=== PATIENT | male | born 1935 | race Caucasian/White ===

== ENCOUNTER 2019-11-07 12:35 | Outpatient (CLI) | payer MEDICARE, OTHER, SELFPAY ==
[2019-11-07] MEDS: iohexol 300 mg/mL 50 mL Btl PO (14:24)
[2019-11-07] MEDS: iodixanol 320 mg/mL 100mL Btl IV (14:25)
--- NOTE | 2019-11-07 14:30 | CT_ITS ---
WS: [id number] CT ABDOMEN PELVIS TECHNIQUE: Contrast-enhanced CT of the abdomen and pelvis with coronal and sagittal reformatted image s. CLINICAL INFORMATION: ABDOMINAL PAIN IN MALE COMPARISON: CT abdomen pelvis April 23, 2018 DLP: 1174.[address] scans at [facility] use at least one of these dose optimization techniques: automat ed exposure control; mA and/or kV adjustment per patient size (includes targeted exams where dose is matched to clinical indication); or iterative reconstruction. FINDINGS: Liver is normal in appearance. Normal portal vein and splenic vein. Normal gallbladder. Normal spleen . Normal GE junction. Slight atelectasis in the lung bases. Adrenal glands are normal. Bilateral renal cortical atrophy. Bilateral renal cysts. No obstructing re nal or ureteral calculi. Slightly ectatic left ureter although no obstructing calculus. No obstructiv e uropathy. Normal caliber abdominal aorta. Sigmoid diverticulosis. No evidence of small or large bowel obstructi on. No pelvic lymphadenopathy. No inguinal lymphadenopathy. Evidence of prior TURP. Moderate spondyli tic changes lumbar spine. CT/CT abdomen pelvis w con* [id number] IMPRESSION: 1. No acute abdominal or pelvic findings. 2. Bilateral renal cysts appear unchanged. 3. No obstructing renal or ureteral calculi. 4. Evidence of prior TURP. 5. No abdominal or pelvic lymphadenopathy.
== END 2019-11-07 12:36 | disposition home or self-care (01) ==
LOC: RADWPI 12:42
PROVIDERS: Family Provider Family Medicine; Visit Provider Internal Medicine
DX: N28.1 Cyst of kidney, acquired (principal); R10.9 Unspecified abdominal pain
CPT/HCPCS: 74177; Q9967

== ENCOUNTER 2019-12-22 10:26 | Emergency (ER) | payer OTHER, MEDICARE, SELFPAY ==
[2019-12-22 10:42] VITALS: BP 161/76; PULSE 61; RESP 20; TEMP 36.8; O2SAT 96; BMI 30.3
--- NOTE | 2019-12-22 10:51 | USCV_ITS ---
Ta Portillo Age: 84 Gender: M : 1935 Exam Date: 12/22/2019 11:39 Ordering Phys: Mecca Lopez Technologist: Joon Richards Exam Location: [facility] [place] Indication: LT LEG PAIN AND SWELLING HISTORY: Lower extremity edema. PROCEDURES: Venous duplex imaging was performed in only the left lower extremity. The following venous structures were evaluated: common femoral vein, profunda vein, proximal portion of the greater saphenous vein, superficial femoral vein, and the popliteal vein. In addition, the posterior tibial and peroneal trunk were evaluated. On the left side, the common femoral, superficial femoral, profunda femoral, popliteal, posterior tibial, greater saphenous veins, and the peroneal trunk were identified and interrogated in the standard fashion. These veins were found to be easily compressible with spontaneous blood flow. No evidence of insufficiency or thrombus noted. FINDINGS: Normal 2-D Doppler and augmentation and compressibility throughout the lower extremity venous structures. Additional imaging through the proximal calf veins also reveals no thrombus. Limited evaluation of the greater saphenous vein is patent with no thrombus.. CONCLUSIONS No evidence of left lower extremity DVT. Jeffery Gallo MD (Electronically Signed) Final Date: 23 December 2019 10:57 S
--- NOTE | 2019-12-22 10:51 | W.ED.EXTPRO ---
HPI - Extremity Problem General: Chief complaint: Extremity Injury, Lower Stated complaint: LEFT LEG SWELLING Time Seen by Provider: 12/22/19 10:45 Source: patient Mode of arrival: ambulatory Limitations: no limitations History of Present Illness: HPI Narrative: Patient is a very nice 84-year-old male who comes in today with complaints of left ankle swelling over the past 5 to 6 weeks. [facility] and was seen [facility] today and referred to the emergency department for further evaluation. Patient is not having any pain in the ankle. There is no redness or heat to the area. He has not noticed a difference in the swelling with being on his feet for long periods of time or with elevation. He has been using compression stockings without much change. He has no previous injuries, fractures, or hardware to the leg/ankle/foot. MD Complaint: joint swelling Onset (ago): month(s) Location: left and lower extremity Radiation: none Relieving factors: nothing Exacerbating factors: nothing Associated symptoms: Reports no associated symptoms; Deny chest pain or fever(s) Review of Systems Const: Denies: fever or chills Card: Denies: chest pain, palpitations, irregular heart rhythm, edema, lightheadedness, syncope, pre-syncope, shortness of breath on exertion, shortness of breath when lying down, leg pain with exertion or bluish discoloration of hands/feet Resp: Denies: shortness of breath, pain on inspiration, coughing up blood or chest congestion Musc: Reports: joint swelling; Denies: extremity pain, extremity swelling, joint pain, redness, joint warmth, joint stiffness, limited range of motion, muscle cramps or muscle weakness Neuro: Denies: numbness in extremities, weakness in extremities or changes in sensation [facility] ED PFSH: Social History Smoking and tobacco status: never smoked Alcohol intake: former History of recent travel: No Current gender identity: Male Physical Exam Const: COMMON NORMALS: no apparent distress, average body habitus, oriented x3, no limitations, healthy appearing, alert and well nourished Resp: COMMON NORMALS: normal respiratory effort and clear to auscultation bilaterally AUSCULTATION: clear to auscultation bilaterally Cardio: COMMON NORMALS: regular rate and regular rhythm RATE: regular rate RHYTHM: regular rhythm Extremity: OTHER: Nonpitting edema noted about the left ankle. Ankle is not erythematous or warm to the touch. Patient maintains painless full ROM. He has strong palpable DP and PT pulses. Capillary refill is brisk. He has no swelling or pain to his calf. Negative Janes's. Neuro: COMMON NORMALS: oriented x3 SENSORIUM/ORIENTATION: Yes alert Skin: COMMON NORMALS: no rashes or lesions noted, no wounds and no petechiae GENERAL SKIN EXAM: no rashes or lesions noted LESIONS: no lesions Course Vital Signs: Vital signs: Vital Signs Temperature 98.3 F 12/22/19 10:42 Pulse Rate 61 12/22/19 10:42 Respiratory Rate 20 H 12/22/19 10:42 Blood Pressure 161/76 12/22/19 10:42 Pulse Oximetry 96 12/22/19 10:42 MDM - Extremity (Nontraumatic) Lab Data: Labs: Lab Results 12/22/19 12/22/19 Range/Units 11:08 11:08 WBC 6.0 (4.0-10.0) 10^3/ uL RBC 4.61 (4.1-5.3) 10^6/u L Hgb 12.5 (11.7-16.6) g/dL Hct 39.0 L (42.0-52.0) % MCV 84.6 (80-94) fL MCH 27.1 L (28.0-34.0) pg MCHC 32.1 (30.0-36.0) g/dL RDW 14.6 (12.1-15.1) % Plt Count 177 (130-400) 10^3/c mm MPV 9.3 (7.4-10.4) fL Neut % (Auto) 59.0 % Lymph % (Auto) 27.4 % Duchesne % (Auto) 9.1 % Eos % (Auto) 3.7 % Baso % (Auto) 0.5 % Neut # (Auto) 3.5 (1.8-7.7) 10^3/u L Lymph # (Auto) 1.6 (0.8-4.8) 10^3/u L Duchesne # (Auto) 0.5 (0.2-0.9) 10^3/u L Eos # (Auto) 0.2 (0.0-0.8) 10^3/u L Baso # (Auto) 0.0 (0.0-0.1) 10^3/u L Nucleated RBC % (a uto) 0 % Nucleated RBCs # 0.0 /100WBC Sodium 141 (136-145) mmol/L Potassium 4.4 (3.5-5.1) mmol/L Chloride 105 (98-107) mmol/L Carbon Dioxide 27 (22-29) mmol/L Anion Gap 13.4 (5-19) BUN 16 (8-23) mg/dL Creatinine 1.3 H (0.7-1.2) mg/dL Glucose 99 (65-115) mg/dL Calculated Osmolal ity 288 (285-295) mOsm/k g Calcium 9.3 (8.5-10.5) mg/dL Total Bilirubin 0.3 (0.15-1.2) mg/dL AST 18 (0-40) U/L ALT 17 (0-41) U/L Alkaline Phosphata se 87 (40-130) IU/L Total Protein 6.9 (6.6-8.7) g/dL Albumin 4.1 (3.5-5.2) g/dL Globulin 2.8 (1.3-4.6) g/dL Imaging Data^: US venous L LE: My impression: NO DVT-per Joon Richards [facility] Discharge Plan Discharge Patient Disposition: Home, Self-Care Clinical Impression: Left ankle swelling Condition: Stable Prescriptions: No Action pantoprazole 40 mg tablet,delayed release (DR/EC) 40 mg PO DAILY Qty: 90 RF: 3 bismuth subsalicylate [Pepto-Bismol] 262 mg/15 mL suspension 524 mg PO QID PRNRF: 0 tramadol 50 mg tablet 50 mg PO Q6H PRNRF: 0 coenzyme Q10 [CoQ-10] 100 mg capsule 100 mg PO DAILY RF: 0 losartan 100 mg tablet 100 mg PO DAILY RF: 0 rosuvastatin 40 mg tablet 40 mg PO DAILY RF: 0 ergocalciferol (vitamin D2) 50 mcg (2,000 unit) capsule 50 mcg PO DAILY RF: 0 pramipexole [Mirapex] 0.125 mg tablet 0.125 mg PO DAILY RF: 0 Discharge Orders: Discharge Order (Routine); Ordered 12/22/19 Ordered By: Mecca Lopez Referrals: Rupesh Tompkins [Primary Care Provider] - Cole Tompkins MD [Family Provider] - Discharge Diet: Usual diet Discharge Activity: Resume usual activity Activity Restrictions/Additional Instructions: [facility] Coding Level of Care Code ED Conservation Educator for Matthew Lr
[2019-12-22 11:20] LABS: Basophils % 0.5 %; Eosinophils # 0.2 10^3/uL (0.0-0.8); Eosinophils % 3.7 %; Hemoglobin 12.5 g/dL (11.7-16.6); Lymphocytes # 1.6 10^3/uL (0.8-4.8); Lymphocytes % 27.4 %; Mean Corpuscular HGB Conc 32.1 g/dL (30.0-36.0); Mean Corpuscular Hemoglobin 27.1 pg (28.0-34.0); Mean Corpuscular Volume 84.6 fL (80-94); Mean Platelet Volume 9.3 fL (7.4-10.4); Monocytes # 0.5 10^3/uL (0.2-0.9); Monocytes % 9.1 %; Neutrophils # 3.5 10^3/uL (1.8-7.7); Nucleated Red Blood Cells % 0 %; Platelet Count 177 10^3/cmm (130-400); Red Blood Count 4.61 10^6/uL (4.1-5.3); Red Cell Distribution Width 14.6 % (12.1-15.1)
[2019-12-22 11:37] LABS: Alanine Aminotransferase 17 U/L (0-41); Albumin Level 4.1 g/dL (3.5-5.2); Alkaline Phosphatase 87 IU/L (40-130); Anion Gap 13.4 (5-19); Aspartate Amino Transferase 18 U/L (0-40); Blood Urea Nitrogen 16 mg/dL (8-23); Calcium 9.3 mg/dL (8.5-10.5); Carbon Dioxide 27 mmol/L (22-29); Chloride 105 mmol/L (98-107); Globulin 2.8 g/dL (1.3-4.6); Glucose 99 mg/dL (65-115); Osmolality Calculated 288 mOsm/kg (285-295); Potassium 4.4 mmol/L (3.5-5.1); Sodium 141 mmol/L (136-145); Total Bilirubin 0.3 mg/dL (0.15-1.2); Total Protein 6.9 g/dL (6.6-8.7)
[2019-12-22 12:46] VITALS: BP 142/72; PULSE 55; RESP 16; TEMP 36.8; O2SAT 95
== END 2019-12-22 12:47 | disposition home or self-care (01) ==
PROVIDERS: Emergency Provider Physician Assistant; Family Provider Family Medicine
DX: M79.89 Other specified soft tissue disorders (principal)
CPT/HCPCS: 12345; 36415; 80053; 85025; 93971; 99281; 99283

== ENCOUNTER 2019-12-28 09:23 | Outpatient (CLI) | payer MEDICARE, OTHER, SELFPAY ==
--- NOTE | 2019-12-28 09:29 | XR_ITS ---
WS: [id number] LUMBAR SPINE TECHNIQUE: 7 views of the lumbar spine CLINICAL INFORMATION: LOW BACK PAIN COMPARISON: None. FINDINGS: Mild lumbar curve convex left. Five [id number] lumbar vertebral bodies. Disc space narrowing throughout the lumbar spine. Mild anterior hypertrophic changes lower thoracic and lumbar spine. Slight retrolisthesis L2 on L3 and L3 on L4. No instability on flexion-extension. S1 is partially lumbarized. XR/XR lumbar spine 6V w f/e [id number] IMPRESSION: 1. No instability on flexion-extension. 2. Mild lumbar curve convex left.
== END 2019-12-28 09:24 | disposition home or self-care (01) ==
LOC: RADWPI 09:27
PROVIDERS: Family Provider Family Medicine; Visit Provider Nurse Practitioner Family
DX: M54.5 Low back pain (principal)
CPT/HCPCS: 72114

== ENCOUNTER 2020-01-09 10:09 | Day surgery (SDC) | payer MEDICARE, OTHER, SELFPAY ==
[2020-01-06 10:41] VITALS: BMI 29.7
--- NOTE | 2020-01-09 08:32 | P.HP_ITS ---
Same Day Surgery H&P Indication for Procedure/HPI DATE OF PROCEDURE: January 09, 2020 CHIEF COMPLAINT/INDICATIONFOR SURGICAL PROCEDURE: Persistent epigastric pain PREOP DIAGNOSIS: Persistent epigastric pain PLANNED PROCEDRUE: Operation Date: 01/09/20 11:15 Proposed Procedures p EGD 23510 R10.9(Not Applicable) - Randy Carson MD Medications/Allergies* Home Medications Medication Instructions Recorded Confirmed Type ergocalciferol (vitamin D2) 50 mcg 50 mcg PO DAILY 10/24/19 01/06/20 History (2,000 unit) capsule losartan 100 mg tablet 100 mg PO DAILY 10/24/19 01/06/20 History pramipexole 0.125 mg tablet 0.125 mg PO DAILY 10/24/19 01/06/20 History rosuvastatin 40 mg tablet 40 mg PO DAILY 10/24/19 01/06/20 History tramadol 50 mg tablet 50 mg PO Q6H PRN 10/24/19 01/06/20 History Allergies/Adverse Reactions Allergy/AdvReac Type Severity Reaction Status Date / Time hydroxyzine Allergy Mild dry mouth Verified 12/22/19 10:45 ofloxacin [From Floxin] Allergy Mild dry mouth Verified 12/22/19 10:45 metformin Allergy Unknown Verified 12/22/19 10:45 Pertinent History/Comorbid Conditions* Family History (Updated 10/24/19 @ 10:35 by ABRAHAM Subramanian) Myocardial infarction Father Cancer Mother Social History Smoking and tobacco status: never smoked Alcohol intake: former History of recent travel: No Current gender identity: Male Pertinent Exam Findings alert, oriented x 3, clear to auscultation bilaterally, regular rate & rhythm, operative site marked and procedure specific exam findings Recommendations Surgery/Procedure today Coding Level of Care Code Acute Multimedia Assistant for Matthew Lr
[2020-01-09 10:28] VITALS: BP 158/77; PULSE 75; RESP 16; TEMP 35.8; O2SAT 97
--- NOTE | 2020-01-09 10:31 | P.ANESASSM_ITS ---
Pre-Anesthetic Assessment Pre-Anesthetic Assessment: Height/Weight: Height 1.68 m Weight 83.461 kg Preop Diagnosis: abdominal pain Proposed Procedure: Operation Date: 01/09/20 11:15 Proposed Procedures p EGD 71920 R10.9(Not Applicable) - Randy Carson MD Familial anesthetic complications: None Was Beta Anna taken within 24 h ours: N/A Last intake: NPO > 8 hrs, took protonix this morning Social: Social History: No alcohol and No tobacco Exam: Pre-Anes Outpt Exam: alert, oriented x 3, clear to auscultation bilaterally and regular rate & rhythm Airway: Cervical ROM: WNL MP: 3 Additional comments: implants, gold plated Pulmonary: Pulmonary: None reported CV/HEM: CV/HEM: HTN : : None reported Hepatic: Hepatic: None reported GI: GI: GERD Metabolic: Metabolic: None reported Musc/skel: Musc/skel: None reported Neuropsych: Neuropsych: None reported Anesthetic Plan: ASA status: 2 Anesthesia: MAC Risk of > 500 ml blood loss (7ml/kg in children): No PFSH Anesthesia PFSH: Social History Smoking and tobacco status: never smoked Alcohol intake: former History of recent travel: No Current gender identity: Male Data Anesthesia Cardiac Studies: No Data to Display
[2020-01-09] MEDS: sodium chloride 0.9% 1,000 ML 30 ML IV (10:36)
[2020-01-09 12:14] VITALS: BP 133/78; PULSE 74; RESP 16; TEMP 36.2; O2SAT 97
[2020-01-09 12:29] VITALS: BP 141/79; PULSE 57; RESP 16; TEMP 36.6; O2SAT 97
[2020-01-10 14:20] LABS: H. Pylori / CLO Test Negative
== END 2020-01-09 12:50 | disposition home or self-care (01) ==
PROVIDERS: Family Provider Family Medicine; Visit Provider Internal Medicine
PROC: 0DJ08ZZ Inspection of Upper Intestinal Tract, Via Natural or Artificial Opening Endoscopic (ICD-10-PCS; CPT 43235; principal; 2020-01-09 11:10)
DX: R10.13 Epigastric pain (principal); K29.70 Gastritis, unspecified, without bleeding; I10 Essential (primary) hypertension; K21.9 Gastro-esophageal reflux disease without esophagitis
CPT/HCPCS: 43239; 12345; 87077; J2001; J2704; J7030

== ENCOUNTER 2020-01-19 08:04 | Outpatient (CLI) | payer MEDICARE, OTHER, SELFPAY ==
--- NOTE | 2020-01-19 08:45 | CT_ITS ---
WS: [id number] CT LUMBAR SPINE, noncontrast. HISTORY: Low back pain TECHNIQUE: Contiguous 2.5 mm axial imaging are performed. Sagittal and coronal reformats are submitte d and reviewed. All CT scans at [facility] use at least one of these dose optimization te chniques: automated exposure control; mA and/or kV adjustment per patient size (includes targeted exa ms where dose is matched to clinical indication); or iterative reconstruction. IV contrast: None DLP: 2000.4 mGycm COMPARISON: 02/01/2019 2 mm retrolisthesis of L2 and L3. Very mild LEFT curvature lumbar spine. Mild progression of degenera tive disc disease and vacuum disc phenomenon at L4-5 and L5-S1. Endplate osteophytes extend anterior and posterior from the vertebral bodies. No acute fractures are identified. Irregularity along the en dplates most significant at L4 and L5. L1-2: Mild annular disc bulging without stenosis. L2-3: Diffuse osteophytic ridging and retrolisthesis of L2 resulting in mild central stenosis. Modera te RIGHT foraminal stenosis. L3-4: Diffuse annular disc bulging and mild osteophytic ridging. Ligamentum flavum hypertrophy with o nly mild RIGHT foraminal narrowing. Slight encroachment upon the ventral thecal sac by the disc disea se. L4-5: Diffuse asymmetric disc bulging and osteophytic ridging. Encroachment upon the ventral thecal s ac and RIGHT subarticular recess. Mild central and RIGHT subarticular recess stenosis and RIGHT shaun inal stenosis. L5-S1: Diffuse osteophytic ridging is moderate with disc bulging. Osteophytes encroach into the RIGHT foramen and subarticular recess. Moderate RIGHT foraminal stenosis. Smaller osteophytes in the LEFT foramen. Mild atherosclerosis aorta. S1 is partially lumbarized. CT/CT lumbar spine wo con* [id number] IMPRESSION: 1. Mild progression of spondylitic changes throughout the lumbar spine since . 2. LEFT convex curvature lumbar spine. 3. Moderate RIGHT foraminal stenosis at L2-3. 4. Mild central, RIGHT subarticular recess and foraminal stenosis at L4-5. 5. Moderate RIGHT foraminal stenosis at L5-S1. 6. Mild central stenosis at L2-3 through L4-5.
== END 2020-01-19 08:05 | disposition home or self-care (01) ==
LOC: RADWPI 08:08
PROVIDERS: Family Provider Family Medicine; Visit Provider Licensed Practical Nurse
DX: M54.5 Low back pain (principal); M48.061 Spinal stenosis, lumbar region without neurogenic claudication
CPT/HCPCS: 72131

== ENCOUNTER 2020-02-20 07:59 | Outpatient (CLI) | payer MEDICARE, OTHER, SELFPAY ==
--- NOTE | 2020-02-20 09:00 | IR_ITS ---
WS: [id number] MYELOGRAM LUMBAR SPINE Fluoroscopic guided lumbar myelogram CLINICAL INFORMATION: lumbar pain COMPARISON: None. TECHNIQUE: The procedure, including risks, benefits, and complications, were discussed with the patie nt who agreed to proceed. A timeout was performed to confirm correct patient, procedure, and site. Using sterile technique, the patient was prepped and draped in the usual sterile fashion. After admin istration of local anesthesia using 1% preservative-free lidocaine and using fluoroscopic guidance, a 22-gauge spinal needle was advanced into the subarachnoid space at the L3-L4 level. Subsequently 13 cc of Omnipaque 240 was administered into the thecal sac. The needle was removed and hemostasis was a chieved. Spot fluoroscopic images were obtained. FLUOROSCOPIC TIME: 0.3 minutes. Spot fluoroscopic images demonstrate mild lumbar curve convex left. 5 nonrib-bearing lumbar vertebral bodies. Slight retrolisthesis L2 on L3, L3 on L4, and L4 on L5. Mild disc space narrowing throughout the lumbar spine. No significant instability on flexion-extension. Moderate facet arthropathy L4-L5 and L5-S1. Please see CT myelogram report for additional detail. IR/IR myelogram sp lumbar [id number] IMPRESSION: 1. Uncomplicated lumbar myelogram. 2. Slight retrolisthesis L2, L3, and L4. 3. No significant instability on flexion extension. 4. Moderate facet arthropathy L4-L5 and L5-S1.
[2020-02-20] MEDS: iohexol 240 mg/mL 50 mL Btl INTRATHECA (09:47)
--- NOTE | 2020-02-20 11:30 | CT_ITS ---
WS: [id number] CT LUMBAR SPINE TECHNIQUE: Contrast-enhanced CT of the lumbar spine with coronal and sagittal reformatted images. CLINICAL INFORMATION: lumbar pain COMPARISON: CT January 19, 2020 DLP: 1682.[address] [facility] use at least one of these dose optimization techniques: automat ed exposure control; mA and/or kV adjustment per patient size (includes targeted exams where dose is matched to clinical indication); or iterative reconstruction. FINDINGS: Mild lumbar curve. No acute compression. Slight retrolisthesis L2 on L3 and L3 on L4. Lumbar curve co nvex left. L1-L2: Mild annular bulging. Spinal canal and foramen are patent. L2-L3: Slight retrolisthesis L2 on L3. Impingement on the right subarticular recess and traversing ri ght L3 nerve root. Mild right and no significant left foraminal narrowing. Encroachment on the racahel sing right L3 nerve root. L3-L4: Disc osteophytic ridging. Slight narrowing of the articular recess bilaterally right greater t ann left. Mild right and no significant left foraminal narrowing. Moderate facet arthropathy with lig amentum flavum hypertrophy. L4-L5: Mild disc bulging and osteophytic ridging. Moderate facet arthropathy. Prior left hemilaminect roxann. Mild central canal stenosis. Mild right and no significant left foraminal narrowing. L5-S1: Mild disc bulging with osteophytic ridging. Mild right and no significant left foraminal narro wing. Slight effacement of ventral thecal sac. Mild facet arthropathy. Visualized pelvic bony structures: Normal. Paravertebral soft tissues: Normal. CT/CT lumbar spine w con [id number] IMPRESSION: 1. Mild lumbar curve convex left. No acute compression fractures. 2. Mild disc bulging with impingement on the right subarticular recess L2-L3 a nd L3-L4 with osteophytic ridging. 3. Mild to moderate central canal stenosis L4-L5. 4. Mild right L2-3 and L3-4 foraminal narrowing. Mild right L4-5 foraminal theodore rowing. 5. Moderate facet arthropathy L3-L5. Prior left hemilaminectomy left L4-5.
== END 2020-02-20 08:00 | disposition home or self-care (01) ==
LOC: RADWPI 08:04
PROVIDERS: Family Provider Family Medicine; Visit Provider Specialist
DX: M54.5 Low back pain (principal); M25.78 Osteophyte, vertebrae; M48.061 Spinal stenosis, lumbar region without neurogenic claudication; M47.816 Spondylosis without myelopathy or radiculopathy, lumbar region
CPT/HCPCS: 62304; 72120; 72132; Q9966

== ENCOUNTER → 2020-05-23 14:07 | Outpatient (BNVA) | payer MEDICARE, OTHER, SELFPAY | PROVIDERS: Family Provider Family Medicine; Visit Provider Licensed Practical Nurse | DX: M51.9 Unspecified thoracic, thoracolumbar and lumbosacral intervertebral disc disorder (principal); M47.26 Other spondylosis with radiculopathy, lumbar region; M43.16 Spondylolisthesis, lumbar region | CPT/HCPCS: 99213 ==

== ENCOUNTER → 2020-09-28 08:23 | Outpatient (BNVA) | payer MEDICARE, OTHER, SELFPAY | PROVIDERS: Family Provider Family Medicine; Referring Provider Dermatology; Visit Provider Orthopaedic Surgery | DX: M16.0 Bilateral primary osteoarthritis of hip (principal); M54.5 Low back pain | CPT/HCPCS: 72170 ==

== ENCOUNTER → 2020-10-09 08:27 | Outpatient (BNVA) | payer MEDICARE, BC, SELFPAY | PROVIDERS: Family Provider Family Medicine; PCP Family Medicine; Referring Provider Orthopaedic Surgery; Visit Provider Anesthesiology Pain Medicine | DX: G89.29 Other chronic pain (principal); M54.9 Dorsalgia, unspecified; M43.16 Spondylolisthesis, lumbar region; M51.9 Unspecified thoracic, thoracolumbar and lumbosacral intervertebral disc disorder; M51.17 Intervertebral disc disorders with radiculopathy, lumbosacral region; M47.816 Spondylosis without myelopathy or radiculopathy, lumbar region; Z79.891 Long term (current) use of opiate analgesic | CPT/HCPCS: 99205 ==

== ENCOUNTER → 2020-10-23 13:39 | Outpatient (BNVA) | payer MEDICARE, BC, SELFPAY | PROVIDERS: Family Provider Family Medicine; PCP Family Medicine; Visit Provider Anesthesiology Pain Medicine | DX: M51.17 Intervertebral disc disorders with radiculopathy, lumbosacral region (principal); M54.9 Dorsalgia, unspecified; Z79.891 Long term (current) use of opiate analgesic | CPT/HCPCS: 64483; 64484; J1100; J3490 ==

== ENCOUNTER → 2020-11-21 08:37 | Outpatient (BNVA) | payer MEDICARE, BC, SELFPAY | PROVIDERS: Family Provider Family Medicine; PCP Family Medicine; Visit Provider Anesthesiology Pain Medicine | DX: M54.9 Dorsalgia, unspecified (principal); M43.16 Spondylolisthesis, lumbar region; M51.9 Unspecified thoracic, thoracolumbar and lumbosacral intervertebral disc disorder; M51.17 Intervertebral disc disorders with radiculopathy, lumbosacral region; M47.816 Spondylosis without myelopathy or radiculopathy, lumbar region; M25.551 Pain in right hip; Z79.891 Long term (current) use of opiate analgesic | CPT/HCPCS: 99214 ==

== ENCOUNTER → 2020-12-13 12:43 | Outpatient (BNVA) | payer MEDICARE, BC, SELFPAY | PROVIDERS: Family Provider Family Medicine; PCP Family Medicine; Visit Provider Orthopaedic Surgery | DX: M47.816 Spondylosis without myelopathy or radiculopathy, lumbar region (principal); M43.16 Spondylolisthesis, lumbar region; M51.17 Intervertebral disc disorders with radiculopathy, lumbosacral region; M51.9 Unspecified thoracic, thoracolumbar and lumbosacral intervertebral disc disorder | CPT/HCPCS: 87635 ==

== ENCOUNTER → 2020-12-28 08:43 | Outpatient (BNVA) | payer MEDICARE, BC, SELFPAY | PROVIDERS: Family Provider Family Medicine; PCP Family Medicine; Visit Provider Orthopaedic Surgery | DX: Z01.812 Encounter for preprocedural laboratory examination (principal); Z20.822 Contact with and (suspected) exposure to COVID-19 | CPT/HCPCS: 87635 ==

== ENCOUNTER 2021-01-02 08:43 | Day surgery (SDC) | payer MEDICARE, BC, SELFPAY ==
[2021-01-01 15:24] VITALS: BMI 29.0
[2021-01-02] VITALS (9 sets, daily range): BP systolic 119–155; BP diastolic 58–85; PULSE 69–87; RESP 12–20; TEMP 36.1–36.6; O2SAT 84–100
--- NOTE | 2021-01-02 | SCC_ITS ---
Procedure Done: L3/4 laminectomy with partial fecetectomy L4/5 Laminectomy with partial facetectomy 26.3 seconds of fluoroscopic guidance, for a cumulative dose of 0.4 mGy, was provided to Dr. Amaya by the radiology department. C-arm images of the lumbar spine were saved for the patient's permanent record. [facility]
--- NOTE | 2021-01-02 | XR_ITS ---
WS: [id number] Lumbar spine, C-arm fluoroscopy views, 01/02/2021 Clinical Data: lumbar decompression Comparison: Lumbar spine, 12/28/2019. Findings: Dr. Amaya decompressed the L4-L5 disc level. XR/XR lumbar spine 2-3V* [id number] Impression: Decompression of the L4-L5 disc level.
--- NOTE | 2021-01-02 09:38 | ECG_ITS ---
[facility] Test Date: 2021-01-02 Pat Name: Ta Portillo Department: Room: Gender: Male [employer] Leader: : 1935 Requested By: Niels Carvajal Order Number: [id number] Connor MD: Lucho Jimenez M.D. Measurements Intervals [place] Rate: 68 P: 42 PA: 217 QRS: -20 QRSD: 87 T: 49 QT: 415 QTc: 444 Interpretive Statements SINUS RHYTHM WITH FIRST DEGREE AV BLOCK WITH OCCASIONAL VENTRICULAR PREMATURE COMPLEXES No previous ECG available for comparison Electronically Signed On 01-03-2021 9:40:01 CDT by Lucho Jimenez M.D. [id number]
[2021-01-02] MEDS: sodium chloride 0.9% 1,000 ML 30 ML IV (10:48)
--- NOTE | 2021-01-02 10:50 | P.ANESASSM_ITS ---
Pre-Anesthetic Assessment Pre-Anesthetic Assessment: Height/Weight: Height 1.68 m Weight 81.647 kg Temp Pulse Resp BP Pulse Ox 97.0 F L 69 16 148/84 84 L 01/02/21 10:21 01/02/21 10:21 01/02/21 10:21 01/02/21 10:21 01/02/21 10:21 Preop Diagnosis: lumbar stenosis Proposed Procedure: Operation Date: 01/02/21 11:40 Proposed Procedures p Lumbar Spine Decompression L3/4 4/5 40973 09448 M48.062(Not Applicable) - Niels Amaya, DO Was Beta Anna taken within 24 hours: N/A Was Clonidine taken within 24 hours: N/A Last intake: Intake Last Liquid Date 01/01/21 Last Liquid Time 00:00 Last Solid Date 01/01/21 Last Solid Time 21:00 Social: Social History: No alcohol and No tobacco Exam: Pre-Anes Outpt Exam: alert, oriented x 3, clear to auscultation bilaterally and regular rate & rhythm Airway: Submandibular: WNL Cervical ROM: WNL MP: 2 Dentition: False (upper) GI: GI: GERD Musc/skel: Musc/skel: Lower Back Pain Anesthetic Plan: ASA status: 3 Anesthesia: General Risk of > 500 ml blood loss (7ml/kg in children): No Meds/Allergies Current Medications: Current Medications Generic Name Dose Route Start Last Admin Trade Name Freq PRN Reason Stop Dose Admin Sodium Chloride 1,000 mls @ 30 ml s/hr 01/02/21 09:45 01/02/21 10:48 Sodium Chloride 0.9% IV 01/03/21 09:44 30 mls/hr .Q24H JENNIFER Administration PFSH Anesthesia PFSH: Medical History Intervertebral disc disorder with radiculopathy of lumbosacral region Lumbar disc disease Lumbar stenosis with neurogenic claudication Other spondylosis with radiculopathy, lumbar region Spondylolisthesis of lumbosacral region Spondylolisthesis, lumbar region Surgical History H/O transurethral resection of prostate Family History Mother Cancer Father Myocardial infarction Social History Smoking and tobacco status: never smoked Alcohol intake: never Household members: spouse Marital status: Current occupational status: employed 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
[2021-01-02 10:53] LABS: Basophils % 0.5 %; Eosinophils # 0.2 10^3/uL (0.0-0.8); Eosinophils % 3.9 %; Hematocrit 43.6 % (42.0-52.0); Lymphocytes # 1.5 10^3/uL (0.8-4.8); Lymphocytes % 24.6 %; Mean Corpuscular HGB Conc 32.1 g/dL (30.0-36.0); Mean Corpuscular Hemoglobin 27.6 pg (28.0-34.0); Mean Platelet Volume 9.6 fL (7.4-10.4); Monocytes # 0.5 10^3/uL (0.2-0.9); Neutrophils % 62.7 %; Nucleated Red Blood Cells % 0 %; Platelet Count 177 10^3/cmm (130-400); Red Blood Count 5.07 10^6/uL (4.1-5.3); Red Cell Distribution Width 14.9 % (12.1-15.1); White Blood Count 5.9 10^3/uL (4.0-10.0)
[2021-01-02 11:12] LABS: Anion Gap 11.1 (5-19); Blood Urea Nitrogen 18 mg/dL (8-23); Calcium 8.8 mg/dL (8.5-10.5); Carbon Dioxide 28 mmol/L (22-29); Chloride 106 mmol/L (98-107); Glucose 129 mg/dL (65-115); Osmolality Calculated 294 mOsm/kg (285-295); Potassium 5.1 mmol/L (3.5-5.1); Sodium 140 mmol/L (136-145)
--- NOTE | 2021-01-02 12:02 | W.PM.OPSUD ---
Surgery/Procedure H&P Update DATE OF PROCEDURE: January 02, 2021 DATE H&P PERFORMED: 01/02/21 PREOP DIAGNOSIS: lumbar stenosis PLANNED PROCEDURE: Operation Date: 01/02/21 11:40 Proposed Procedures p Lumbar Spine Decompression L3/4 12/03 87330 28521 M48.062(Not Applicable) - Niels Amaya DO
--- NOTE | 2021-01-02 12:04 | P.HP_ITS ---
Providers/Chief Complaint Primary Care Provider: Cole Tompkins MD Chief Complaint: lumbar decompression History of Present Illness Ta Portillo is a 85 year old male patient here for follow up after steroid injection at the L3-[address] Bhatti and recent Prednisone taper. Patient reports that neither of these conservative treatments provided him relief. He states that he would like to discuss surgical intervention. Review of Systems Narrative: Const: Denies: fever(s) or chills Card: Denies: chest pain or dyspnea on exertion Resp: Denies: dyspnea or productive cough GI: Denies: abdominal pain, nausea or vomiting Musc: Reports: back pain, extremity pain and limited range of motion Skin/Breast: Denies: changes in skin color or dry skin Neuro: Reports: numbness in extremities, weakness in extremities and diffi culty walking Psych: Denies: anxiety Kike/Lymph: Denies: easy bruising or easy bleeding Medications/Allergies Home Medications Medication Instructions Recorded Confirmed Last Taken Type ergocalciferol (vitamin D2) 50 mcg 50 mcg PO DAILY 10/24/19 01/02/21 01/01/21 History (2,000 unit) capsule losartan 100 mg tablet 100 mg PO DAILY 10/24/19 01/02/21 01/01/21 History pramipexole 0.125 mg tablet 0.125 mg PO DAILY 10/24/19 01/02/21 01/01/21 History rosuvastatin 40 mg tablet 40 mg PO DAILY 10/24/19 01/02/21 01/01/21 History tramadol 50 mg tablet 50 mg PO Q6H PRN 10/24/19 01/02/21 01/01/21 History dexlansoprazole [Dexilant] 60 mg PO DAILY #90 cap 01/09/20 01/02/21 01/02/21 Rx Allergies Allergy/AdvReac Type Severity Reaction Status Date / Time hydroxyzine Allergy Mild dry mouth Verified 11/30/20 08:14 ofloxacin [From Floxin] Allergy Mild dry mouth Verified 11/30/20 08:14 metformin Allergy blacked out Verified 11/30/20 08:14 PFSH Acute PFSH: Medical History Intervertebral disc disorder with radiculopathy of lumbosacral region Lumbar disc disease Lumbar stenosis with neurogenic claudication Other spondylosis with radiculopathy, lumbar region Spondylolisthesis of lumbosacral region Spondylolisthesis, lumbar region Surgical History H/O transurethral resection of prostate Family History Mother Cancer Father Myocardial infarction Social History Smoking and tobacco status: never smoked Alcohol intake: never Household members: spouse Marital status: Current occupational status: employed 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 GENERAL: Patient in no acute distress. Well nourished. CARDIAC: Regular rate and rhythm. CHEST: Normal inspirator effort, normal respiratory rate. ABDOMEN: Soft and non-tender. SKIN: Clear, warm and intact. NEURO?PSYCH: The patient is alert and oriented to person, place and time. NEUROVASCULAR: Upper Extremity Sensory - SILT. Motor Strength: Shoulder abduction C5: 5/5; Wrist extension C6: 5/5; Elbow extension C7: 5/5; Hand Acoustic Warfare Analyst C8: 5/5; Finger abduction T1: 5/5. Radial/ Ulnar/ Median in intact Lower Extremity Sensory - SILT. Motor Strength: Hip flexion L2/3; Ant/inner thigh: 5/5; Hip adduction L2/3: 5/5; Knee extension L4 Lat thigh: 5/5; Toe dorsiflexion L5: 5/5; Ankle dorsiflexion L5/ S1: 5/5; Plantar flexion S1: 5/5. DTR: Triceps 2+; Brachioradialis 2+; Patellar 2+; Achilles 2+. MUSCULOSKELETAL: UPPER EXTREMITIES: The patient had full active ROM in fingers, wrist, elbow, and shoulder. The patient demonstrated ability to fully flex/extend/abduct/adduct fingers, make ok sign, cross 2nd/3rd digits, extend 1st digit fully.. Radial pulse 2+, CR<2 seconds. LOWER EXTREMITIES: Pt has full, active ROM of toes, ankle, knee, and hip. Dorsalis pedis & posterior tibialis pulses 2+, CR<2 seconds. SPINE: Skin warm, dry, intact. Data : 01/02/21 10:44 01/02/21 10:44 A&P Assessment and plan (1) Lumbar stenosis with neurogenic claudication: MIS decompression lumbar spine Status: Chronic Attestations Medical Necessity Statement*: failed conservative treatment Coding Level of Care Code Acute School Age Program Associate for [facility] Fwd Diagnoses Lumbar stenosis with neurogenic claudication M48.062
--- NOTE | 2021-01-02 15:03 | P.PCN_ITS ---
PACU note PACU note: VSS, Good respiratory effort, report to PLANING MACHINE OPERATOR Post-Anesthesia Exam: awake
--- NOTE | 2021-01-02 15:03 | PM.PACU ---
PACU note PACU note: VSS, Good respiratory effort, report to OPTOMETRIC COORDINATOR Post-Anesthesia Exam: awake
--- NOTE | 2021-01-02 15:14 | P.OP_ITS ---
Operative Report Date of procedure: January 02, 2021 Pre-op Diagnosis: lumbar stenosis Post-op diagnosis: same Procedure Done: L3/4 laminectomy with partial fecetectomy L4/5 Laminectomy with partial facetectomy Surgeon: Niels Amaya Anesthesia: General Estimated blood loss (mL): 10 Condition: stable Disposition: PACU Procedure: Patient is brought to the operative suite. After undergoing anesthesia they are placed in the supine position. All areas of impingement are well padded. Patient is then prepped and draped in the normal sterile fashion. A skin incision is made over the L3/4 level. This is confirmed under c-arm guidance. A series of dilators are passed and the tubular retractor is docked on the L3 lamina. A bovie is used to clear the soft tissue off the lamina and the L 3/4 facet joint. A high speed maine is then used to perform the laminectomy and take down the medial aspect of the L 3/4 facet joint. A kerrison rongeure was then used to take down the remaining lamina and smooth the edged of the laminectomy up to the point where the ligamentum flavum attaches. Attention was then brought to the medial aspect of the facet joint. The remaining medial aspect of the superior and inferior aspect of the facet joint were taken down with the kerrison from the pedicle of L3 to L 4. The facet joint had significant hypertrophy. Attention was then brought to the Ligamentum Flavum. The ligament was taken down from the lamina of L3 toL4 and out medially to the remaining facet joint. The ligament was thick. The dura was then exposed. The dura was in good repair. The L3 nerve was then traced with a curette out the L3/4 foramen and found to be adequately decompressed. The L4 nerve was traced with a curette around the L4 pedicle. The lateral recess was opened with a kerrison helping to further decompress the L4 nerve. The tubular retractor was then tilted to the contralateral side. The bovie was used to take down the soft tissue on the spinous process. The high speed maine was used to take down the spinous process and then the contralateral lamina of L3. The kerrison rongeur was used to take down the remaining lamina to the point where the ligamentum flavum attached and the ligamentum flavum was taken down from L3 to L4. The kerrison rongeur was then used to reach across and take down the medial aspect of the contralateral L3/4 facet joint.The currete was used to trace the contralateral L3 nerve out the L3/4 foramen to make sure it was decompressed adequatesly and the L4 was traced around the L4 pedicle. The lateral recess was opened further with the kerrison to ensure the L4 is adequately decompressed. A skin incision is made over the 4/5 level. This is confirmed under c-arm guidance. A series of dilators are passed and the tubular retractor is docked on the L4 lamina. A bovie is used to clear the soft tissue off the lamina and the L 4/5 facet joint. A high speed maine is then used to perform the laminectomy and take down the medial aspect of the L 4/5 facet joint. A kerrison rongeure was then used to take down the remaining lamina and smooth the edged of the laminectomy up to the point where the ligamentum flavum attaches. Attention was then brought to the medial aspect of the facet joint. The remaining medial aspect of the superior and inferior aspect of the facet joint were taken down with the kerrison from the pedicle of L4 to L 5. The facet joint had significant hypertrophy. Attention was then brought to the Ligamentum Flavum. The ligament was taken down from the lamina of L4 to L5 and out medially to the remaining facet joint. The ligament was thick. The dura was then exposed. The dura was in good repair. The L4 nerve was then traced with a curette out the L4/5 foramen and found to be adequately decompressed. The L5 nerve was traced with a curette around the L5 pedicle. The lateral recess was opened with a kerrison helping to further decompress the L5 nerve. The tubular retractor was then tilted to the contralateral side. The bovie was used to take down the soft tissue on the spinous process. The high speed maine was used to take down the spinous process and then the contralateral lamina of L4. The kerrison rongeur was used to take down the remaining lamina to the poi nt where the ligamentum flavum attached and the ligamentum flavum was taken down from L4 to L5. The kerrison rongeur was then used to reach across and take down the medial aspect of the contralateral L4/5 facet joint.The currete was used to trace the contralateral L4 nerve out the L4/5 foramen to make sure it was decompressed adequatesly and the L5 was traced around the L5 pedicle. The lateral recess was opened further with the kerrison to ensure the L5 is adequately decompressed. Wound is then irrigated copiously with saline and surgiflo is used to stop any bleeding. The tubular retractor is removed and the wound is closed with vicryl and monocryl suture. Glue is then used to protect the wound. A sterile dressing is then placed. Patient was then placed in the supine position and transferred to the PACU in stable condition.
--- NOTE | 2021-01-02 16:36 | ANE.PACU2 ---
Inpatient post-anesthesia follow up: Airway intact: Yes Vital signs: Temperature 98 F Pulse Rate 73 Respiratory Rate 16 Blood Pressure 126/58 Pulse Oximetry 93 Oxygen Delivery Me thod Room Air Oxygen Flow Rate 3 Fraction of Inspir ed Oxygen Hydration adequate: Yes Nausea and vomiting: No Pain level: 1 Mental status: Baseline
== END 2021-01-02 16:20 | disposition home or self-care (01) ==
PROVIDERS: PCP Family Medicine; Visit Provider Orthopaedic Surgery
PROC: (CPT 63005; principal; 2021-01-02 11:10)
DX: M48.061 Spinal stenosis, lumbar region without neurogenic claudication (principal); K21.9 Gastro-esophageal reflux disease without esophagitis
CPT/HCPCS: 63047; 63048; 36415; 72100; 76000; 80048; 85025; 93005; J0690; J1100; J2370; J2405; J2704; J2710; J3010; J3490; J7030

== ENCOUNTER → 2021-03-11 14:15 | Outpatient (BNVA) | payer MEDICARE, BC, SELFPAY | PROVIDERS: PCP Family Medicine; Referring Provider Nurse Practitioner Family; Visit Provider Nurse Practitioner Family | DX: N39.0 Urinary tract infection, site not specified (principal); R30.0 Dysuria | CPT/HCPCS: 81003 ==

== ENCOUNTER 2021-03-23 11:41 | Emergency (ER) | payer MEDICARE, BC, SELFPAY ==
[2021-03-23] VITALS (8 sets, daily range): BP systolic 118–146; BP diastolic 43–71; PULSE 79–89; RESP 18–20; TEMP 36.9; O2SAT 20–99; BMI 29.0
--- NOTE | 2021-03-23 12:01 | ECG_ITS ---
[facility] Test Date: 2021-03-23 Pat Name: Ta Portillo Department: Room: Gender: Male Data Systems Manager: : [id number] Requested By: Ruthie Roman I Order Number: [id number] Connor MD: Fifi Aguilar M.D. Measurements Intervals [place] Rate: 84 P: 51 SC: 207 QRS: 240 QRSD: 118 T: 10 QT: 374 QTc: 442 Interpretive Statements SINUS RHYTHM WITH OCCASIONAL VENTRICULAR PREMATURE COMPLEXES INDETERMINATE AXIS RIGHT BUNDLE BRANCH BLOCK [120+ ms QRS DURATION, UPRIGHT V1, 40+ ms S IN I/aVL/V4/V5/V6] Compared to ECG 01/02/2021 10:15:59 Ventricular premature complex(es) now present Indeterminate axis now present Right bundle-branch block now present First degree AV block no longer present Electronically Signed On 03-24-2021 18:22:48 CDT by Fifi Aguilar M.D. [id number]
--- NOTE | 2021-03-23 12:01 | XRR_ITS ---
PROCEDURE INFORMATION: Exam: XR Chest Exam date and time: 03/23/2021 12:01 PM Age: 86 years old Clinical indication: Other: Dizziness TECHNIQUE: Imaging protocol: XR of the chest. Views: 1 view. COMPARISON: CR Chest 2 views* [id number] 02/22/2015 8:20 AM FINDINGS: Lungs: Low lung volumes. No focal consolidation. Pleural spaces: Unremarkable. No pleural effusion. No pneumothorax. Heart/Mediastinum: Stable cardiomediastinal silhouette. Bones/joints: Unremarkable. XR/XR chest 1V portable [id number] IMPRESSION: No evidence of active cardiopulmonary disease.
--- NOTE | 2021-03-23 12:02 | CTR_ITS ---
PROCEDURE INFORMATION: Exam: CT Head Without Contrast Exam date and time: 03/23/2021 12:02 PM Age: 86 years old Clinical indication: Injury or trauma; Fall; Blunt trauma (contusions or hematomas); Consciousness not specified; Dizziness; Additional info: Dizziness and frequent falls TECHNIQUE: Imaging protocol: Computed tomography of the head without contrast. Radiation optimization: All CT scans at this facility use at least one of these dose optimization techniques: automated exposure control; mA and/or kV adjustment per patient size (includes targeted exams where dose is matched to clinical indication); or iterative reconstruction. COMPARISON: CT head wo con* [id number] 01/05/2019 8:12 AM RADIATION DOSE METRICS: Total DLP (mGy-cm): 804.16 FINDINGS: Brain: No hemorrhage, mass effect or midline shift. No acute, major vascular distribution infarction identified. There is foci of decreased attenuation in the periventricular and subcortical white matter, likely representing chronic small vessel ischemic changes. Mild cerebral volume loss is present. No intra-axial or extra-axial fluid collection seen. Cerebral ventricles: No ventriculomegaly. Paranasal sinuses: Visualized sinuses are unremarkable. No fluid levels. Mastoid air cells: Visualized mastoid air cells are well aerated. Bones/joints: Unremarkable. No acute fracture. Soft tissues: Unremarkable. CT/CT head wo con* [id number] IMPRESSION: No acute intracranial abnormality. Radiation Dose CTDIVOL = (mGy): DLP = 804.16 (mGy-cm)
--- NOTE | 2021-03-23 12:05 | W.ED.DIZZY ---
HPI - Dizziness General: Chief Complaint: Dizziness Stated Complaint: DIZZY/ FREQUENT FALLS/ DIAPHORETIC Time Seen by Provider: 03/23/21 11:42 Source: patient and RN notes reviewed Mode of arrival: EMS Limitations: no limitations History of Present Illness: HPI Narrative: This 86-year-old male presents to the emergency department with complaints of frequent falls and dizziness. Symptoms have been ongoing for several months to a year. He describes the dizziness as a sensation of the room spinning. His falls have been usually when he has the vertigo symptoms. When he bends over his symptoms are worse. He has had 3 falls today and 2 yesterday. He denies hitting his head or losing consciousness. MD elicited complaint: dizziness and vertigo Pertinent past history: BPPV Onset (ago): year(s) (1) Timing: gradual onset Severity: moderate Description: room spinning Context: change in body position History of similar symptoms: Yes Exacerbating factors: movement/ambulation Relieving factors: nothing Associated symptoms: Denies abnormal vaginal bleeding, change in hearing, chest pain, chills, cough, diaphoresis, ear discharge, ear pressure, fevers/chills, headache(s), malaise, nausea, nasal congestion, palpitations, rash, short of breath, syncope, tinnitus, vomiting or weakness Associated neuro symptoms: Deny confusion, difficulty speaking, dysphagia, diplopia, extremity weakness, facial numbness, facial weakness, gait changes, numbness in extremities or visual changes Review of Systems General: Reports: 10 or more systems reviewed and unremarkable except in HPI and below Const: Denies: chills, malaise or diaphoresis ENMT: Denies: ear discharge, change in hearing, tinnitus or nasal congestion Card: Denies: chest pain, palpitations or syncope GI: Denies: nausea, vomiting or dysphagia Neuro: Denies: headache(s), numbness in extremities or confusion PFS ED PFSH: Medical History Dysuria Intervertebral disc disorder with radiculopathy of lumbosacral region Lumbar disc disease Lumbar stenosis with neurogenic claudication Other spondylosis with radiculopathy, lumbar region Spondylolisthesis of lumbosacral region Spondylolisthesis, lumbar region Surgical History H/O transurethral resection of prostate Family History Mother Cancer Father Myocardial infarction Social History Smoking and tobacco status: never smoked Alcohol intake: never Household members: spouse Marital status: Current occupational status: employed Current occupation: [employer] History of recent travel: No Physical Exam Const: COMMON NORMALS: no acute distress, average body habitus, patient oriented x3, no limitations, healthy appearing, alert and well nourished HENMT: COMMON NORMALS: normocephalic, atraumatic and moist oral mucous membranes HEAD & SCALP: normocephalic and atraumatic Eye: COMMON NORMALS: Equal, round and reactive pupils present, EOMs intact bilaterally, conjunctivae normal and no scleral icterus CONJUNCTIVA: Yes conjunctivae normal PUPIL: Yes Equal, round and reactive pupils present OTHER: nystagmus to the right Neck/C-Spine: COMMON NORMALS: no meningeal signs and no JVD Resp: COMMON NORMALS: normal respiratory effort, No retractions, No use of accessory muscles, clear to auscultation bilaterally and percussion normal AUSCULTATION: clear to auscultation bilaterally PERCUSSION: percussion normal Cardio: COMMON NORMALS: no JVD, regular rate, regular rhythm, S1 normal heart sound present, S2 normal heart sound present, No gallops present (Cardio), No clicks present (Cardio), No murmurs present (Cardio), No rub (Cardio) and Peripheral pulses 2+ throughout RATE: regular rate RHYTHM: regular rhythm HEART SOUNDS: S1 normal heart sound present and S2 normal heart sound present PERIPHERAL PULSES: Peripheral pulses 2+ throughout GI: COMMON NORMALS: Normal to inspection, nondistended, normoactive bowel sounds present, Soft to palpation, non-tender, No hepatosplenomegaly present, no masses and no bruits PALPATION: Yes Soft to palpation and Yes No hepatosplenomegaly present Extremity: COMMON NORMALS: normal to inspection, full ROM, capillary refill normal, no calf tenderness and no pedal edema Neuro: COMMON NORMALS: patient oriented x3 SENSORIUM/ORIENTATION: Yes alert MENINGEAL SIGNS: Yes no meningeal signs Skin: COMMON NORMALS: no rashes or lesions noted, no wounds, turgor normal, no jaundice, no petechiae and no mottling GENERAL SKIN EXAM: no rashes or lesions noted and turgor normal Course Reevaluation(s): Reevaluation #1: Discussed lab and imaging findings with him. Negative for acute findings. Discussed that his symptoms are most likely secondary to BPPV as he has had this diagnosis in the past. I advised that I would like to refer him to either ENT or neurology for further evaluation and management of his BPPV. He states that he has an appointment with his specialist for his BPPV in 3 days. We will discharge him home with no new orders since he already has an appointment. He voiced understanding and is in agreement with the plan. Time: 15:02 Vital Signs: Vital signs: Vital Signs Temperature 98.5 F 03/23/21 11:42 Pulse Rate 89 03/23/21 15:41 Respiratory Rate 18 03/23/21 15:41 Blood Pressure 123/43 03/23/21 15:41 Pulse Oximetry 99 03/23/21 15:41 MDM - Dizziness MDM Narrative: Medical decision making narrative: 86-year-old male who presented to the emergency department with falls secondary to vertigo. He has a history of BPPV and he endorses vertigo symptoms prior to his falls. In the emergency department evaluation is unremarkable and he is discharged home with no new orders. He already has an appointment with a specialist for evaluation of his vertigo in 3 days. Medical Records: Attestation: I reviewed the patient's medical records. Lab Data: Attestation: I reviewed the patient's lab results. Labs: Lab Results 03/23/21 03/23/21 03/23/21 Range/Units 11:30 11:30 11:30 WBC 5.3 (4.0-10.0) 10^3/ uL RBC 5.41 H (4.1-5.3) 10^6/u L Hgb 14.3 (11.7-16.6) g/dL Hct 45.2 (42.0-52.0) % MCV 83.5 (80-94) fL MCH 26.4 L (28.0-34.0) pg MCHC 31.6 (30.0-36.0) g/dL RDW 16.5 H (12.1-15.1) % Plt Count 127 L (130-400) 10^3/c mm MPV 9.8 (7.4-10.4) fL Neut % (Auto) 74.2 % Lymph % (Auto) 13.9 % Power % (Auto) 10.0 % Eos % (Auto) 1.1 % Baso % (Auto) 0.4 % Neut # (Auto) 3.94 (1.8-7.7) 10^3/u L Lymph # (Auto) 0.7 L (0.8-4.8) 10^3/u L Power # (Auto) 0.5 (0.2-0.9) 10^3/u L Eos # (Auto) 0.1 (0.0-0.8) 10^3/u L Baso # (Auto) 0.0 (0.0-0.1) 10^3/u L Nucleated RBC % (a uto) 0 % Nucleated RBCs # 0.0 /100WBC Sodium 131 L (136-145) mmol/L Potassium 4.3 (3.5-5.1) mmol/L Chloride 95 L (98-107) mmol/L Carbon Dioxide 22 (22-29) mmol/L Anion Gap 18.3 (5-19) BUN 14 (8-23) mg/dL Creatinine 1.2 (0.7-1.2) mg/dL GFR Calculation Not Reportable Glucose 157 H (65-115) mg/dL Calculated Osmolal ity 276 L (285-295) mOsm/k g Calcium 8.0 L (8.5-10.5) mg/dL Total Bilirubin 0.5 (0.15-1.2) mg/dL AST 22 (0-40) U/L ALT 26 (0-41) U/L Alkaline Phosphata se 85 (40-130) IU/L Creatine Kinase 60 (39-308) U/L Troponin T Baselin e 10 (0-15) ng/L Troponin T 120 Min [place] (0-15) ng/L Delta Troponin T (0-10) ABS# Total Protein 6.2 L (6.6-8.7) g/dL Albumin 3.9 (3.5-5.2) g/dL Globulin 2.3 (1.3-4.6) g/dL TSH 1.10 (0.27-4.20) uIU/ mL Urine Color (Yellow) Urine Appearance (CLEAR) Urine pH (5-7) Ur Specific Gravit y (1.005-1.030) Urine Protein (Negative) Urine Glucose (UA) (Normal) Urine Ketones (Negative) Urine Blood (Negative) Urine Nitrate (Negative) Urine Bilirubin (Negative) Urine Urobilinogen (Negative) mg/dL Ur Leukocyte Lynnette ase (Negative) 03/23/21 03/23/21 Range/Units 13:28 13:41 WBC (4.0-10.0) 10^3/ uL RBC (4.1-5.3) 10^6/u L Hgb (11.7-16.6) g/dL Hct (42.0-52.0) % MCV (80-94) fL MCH (28.0-34.0) pg MCHC (30.0-36.0) g/dL RDW (12.1-15.1) % Plt Count (130-400) 10^3/c mm MPV (7.4-10.4) fL Neut % (Auto) % Lymph % (Auto) % Power % (Auto) % Eos % (Auto) % Baso % (Auto) % Neut # (Auto) (1.8-7.7) 10^3/u L Lymph # (Auto) (0.8-4.8) 10^3/u L Power # (Auto) (0.2-0.9) 10^3/u L Eos # (Auto) (0.0-0.8) 10^3/u L Baso # (Auto) (0.0-0.1) 10^3/u L Nucleated RBC % (a uto) % Nucleated RBCs # /100WBC Sodium (136-145) mmol/L Potassium (3.5-5.1) mmol/L Chloride (98-107) mmol/L Carbon Dioxide (22-29) mmol/L Anion Gap (5-19) BUN (8-23) mg/dL Creatinine (0.7-1.2) mg/dL GFR Calculation Glucose (65-115) mg/dL Calculated Osmolal ity (285-295) mOsm/k g Calcium (8.5-10.5) mg/dL Total Bilirubin (0.15-1.2) mg/dL AST (0-40) U/L ALT (0-41) U/L Alkaline Phosphata se (40-130) IU/L Creatine Kinase (39-308) U/L Troponin T Baselin e (0-15) ng/L Troponin T 120 Min [place] 11.29 (0-15) ng/L Delta Troponin T 1.29 (0-10) ABS# Total Protein (6.6-8.7) g/dL Albumin (3.5-5.2) g/dL Globulin (1.3-4.6) g/dL TSH (0.27-4.20) uIU/ mL Urine Color Yellow (Yellow) Urine Appearance Clear (CLEAR) Urine pH 5 (5-7) Ur Specific Gravit y 1.025 (1.005-1.030) Urine Protein Neg (Negative) Urine Glucose (UA) Norm (Normal) Urine Ketones 1+ H (Negative) Urine Blood Neg (Negative) Urine Nitrate Negative (Negative) Urine Bilirubin Neg (Negative) Urine Urobilinogen Norm (Negative) mg/dL Ur Leukocyte Lynnette ase Negative (Negative) Imaging Data^: CT Head: Attestation: I personally reviewed and interpreted this imaging study as follows: Radiologist's impression: [address] [id number] Scan ReportSigned Patient: Ta Portillo #: [id number]: 1935cct#:[id number]/Sex: 86 / MADM Date: 03/23/21Loc: ERRoom/Bed:Attending Dr: Ordering Provider/Ordering MD: Ruthie Roman MD, [facility] [place] Date of Service: 03/23/21 Procedure(s): CT head wo con* [id number] Accession Number(s): [id number] Report Number: [id number] PROCEDURE INFORMATION: Exam: CT Head Without Contrast Exam date and time: 03/23/2021 12:02 PM Age: 86 years old Clinical indication: Injury or trauma; Fall; Blunt trauma (contusions or hematomas); Consciousness not specified; Dizziness; Additional info: Dizziness and frequent falls TECHNIQUE: Imaging protocol: Computed tomography of the head without contrast. Radiation optimization: All CT scans at this facility use at least one of these dose optimization techniques: automated exposure control; mA and/or kV adjustment per patient size (includes targeted exams where dose is matched to clinical indication); or iterative reconstruction. COMPARISON: CT head wo con* [id number] 01/05/2019 8:12 AM RADIATION DOSE METRICS: Total DLP (mGy-cm): 804.16 FINDINGS: Brain: No hemorrhage, mass effect or midline shift. No acute, major vascular distribution infarction identified. There is foci of decreased attenuation in the periventricular and subcortical white matter, likely representing chronic small vessel ischemic changes. Mild cerebral volume loss is present. No intra-axial or extra-axial fluid collection seen. Cerebral ventricles: No ventriculomegaly. Paranasal sinuses: Visualized sinuses are unremarkable. No fluid levels. Mastoid air cells: Visualized mastoid air cells are well aerated. Bones/joints: Unremarkable. No acute fracture. Soft tissues: Unremarkable. CT/CT head wo con* [id number] IMPRESSION: No acute intracranial abnormality. Radiation Dose CTDIVOL = (mGy): DLP = 804.16 (mGy-cm) Dictated By:Grace Tamez By:Grace Tamez Date/Time:03/23/219DD/ 1247 CXR: Attestation: I personally reviewed and interpreted this imaging study as follows: Radiologist's impression: [address] [id number] ReportSigned Patient: Ta Portillo #: [id number]: 1935cct#:[id number]/Sex: 86 / MADM Date: 03/23/21Loc: ERRoom/Bed:Attending Dr: Ordering Provider/Ordering MD: Ruthie Roman MD, [facility] [place] Date of Service: 03/23/21 Procedure(s): XR chest 1V portable [id number] Accession Number(s): [id number] Report Number: [id number] PROCEDURE INFORMATION: Exam: XR Chest Exam date and time: 03/23/2021 12:01 PM Age: 86 years old Clinical indication: Other: Dizziness TECHNIQUE: Imaging protocol: XR of the chest. Views: 1 view. COMPARISON: CR Chest 2 views* [id number] 02/22/2015 8:20 AM FINDINGS: Lungs: Low lung volumes. No focal consolidation. Pleural spaces: Unremarkable. No pleural effusion. No pneumothorax. Heart/Mediastinum: Stable cardiomediastinal silhouette. Bones/joints: Unremarkable. XR/XR chest 1V portable [id number] IMPRESSION: No evidence of active cardiopulmonary disease. Dictated By:Grace Tamez By:Grace Tamez Date/Time:03/23/21 1249DD/ 1248 EKG Data^: EKG 1: Attestation: I personally reviewed and interpreted this EKG as follows: EKG interpretation date: 03/23/21 EKG interpretation time: 12:41 Prior EKG tracings: not available for review Interpretation: Sinus rhythm with occasional PVCs. Heart rate 84 bpm. Right bundle branch block. No ST changes. EKG 2: Attestation: I personally reviewed and interpreted this EKG as follows: EKG interpretation date: 03/23/21 EKG interpretation time: 14:12 Prior EKG tracings: available for review Interpretation: Sinus rhythm. Heart rates 77 bpm. Right bundle branch block. No significant change from earlier today. Discharge Plan Discharge Patient Disposition: Home Clinical Impression: Benign paroxysmal positional vertigo Qualifiers: Laterality: unspecified laterality Qualified Code(s): H81.10 - Benign paroxysmal vertigo, unspecified ear Condition: Stable Prescriptions: Continued tramadol 50 mg tablet 50 mg PO Q6H PRN (Reason: Pain) RF: 0 losartan 100 mg tablet 100 mg PO DAILY RF: 0 rosuvastatin 40 mg tablet 40 mg PO DAILY RF: 0 ergocalciferol (vitamin D2) 50 mcg (2,000 unit) capsule 50 mcg PO DAILY RF: 0 pramipexole [Mirapex] 0.125 mg tablet 0.125 mg PO DAILY RF: 0 duloxetine 20 mg capsule,delayed release(DR/EC) 20 mg PO DAILY RF: 0 pantoprazole 40 mg tablet,delayed release (DR/EC) 40 mg PO DAILY RF: 0 Discharge Orders: Discharge ED (Routine); Ordered 03/23/21 Ordered By: Ruthie Roman Referrals: Cole Tompkins MD [Primary Care Provider] - 1-3 days Discharge Diet: Usual diet Discharge Activity: Increase activity as tolerated Patient Instructions: Benign Paroxysmal Positional Vertigo (ED) Activity Restrictions/Additional Instructions: Return for any new or worsening symptoms. Follow up with the specialist that you have been referred to for evaluation of your dizziness on Thursday as scheduled. Continue your home medications. Coding Level of Care Code ED Net Application Support Specialist for Chg Fwd Exam Comprehensive
[2021-03-23 12:36] LABS: Basophils % 0.4 %; Eosinophils # 0.1 10^3/uL (0.0-0.8); Eosinophils % 1.1 %; Hematocrit 45.2 % (42.0-52.0); Hemoglobin 14.3 g/dL (11.7-16.6); Lymphocytes # 0.7 10^3/uL (0.8-4.8); Lymphocytes % 13.9 %; Mean Corpuscular HGB Conc 31.6 g/dL (30.0-36.0); Mean Corpuscular Hemoglobin 26.4 pg (28.0-34.0); Mean Corpuscular Volume 83.5 fL (80-94); Mean Platelet Volume 9.8 fL (7.4-10.4); Monocytes # 0.5 10^3/uL (0.2-0.9); Neutrophils # 3.94 10^3/uL (1.8-7.7); Neutrophils % 74.2 %; Nucleated Red Blood Cells % 0 %; Platelet Count 127 10^3/cmm (130-400); Red Blood Count 5.41 10^6/uL (4.1-5.3); Red Cell Distribution Width 16.5 % (12.1-15.1); White Blood Count 5.3 10^3/uL (4.0-10.0)
[2021-03-23 12:40] LABS: Troponin(5th) Baseline 10 ng/L (0-15)
[2021-03-23 12:47] LABS: Alanine Aminotransferase 26 U/L (0-41); Albumin Level 3.9 g/dL (3.5-5.2); Alkaline Phosphatase 85 IU/L (40-130); Anion Gap 18.3 (5-19); Aspartate Amino Transferase 22 U/L (0-40); Blood Urea Nitrogen 14 mg/dL (8-23); Carbon Dioxide 22 mmol/L (22-29); Chloride 95 mmol/L (98-107); Creatine Phosphokinase 60 U/L (39-308); Creatinine Clr Calc Pharmacy 45.9789; Globulin 2.3 g/dL (1.3-4.6); Glucose 157 mg/dL (65-115); Osmolality Calculated 276 mOsm/kg (285-295); Potassium 4.3 mmol/L (3.5-5.1); Sodium 131 mmol/L (136-145); Total Bilirubin 0.5 mg/dL (0.15-1.2); Total Protein 6.2 g/dL (6.6-8.7)
[2021-03-23 13:35] LABS: Add Urine Microscopic? NO; Charge for UA Resulting for Rev
[2021-03-23 13:47] LABS: Bilirubin Urine Neg (Negative); Blood Urine Neg (Negative); Glucose Urine UA Norm (Normal); Ketones Urine 1+ (Negative); Leukocyte Esterase Urine Negative (Negative); Nitrate Urine Negative (Negative); Protein Urine Neg (Negative); Specific Gravity, Urine 1.025 (1.005-1.030); Urine Appearance Clear (CLEAR); Urine Color Yellow (Yellow); Urobilinogen Urine Norm (Negative); pH Urine 5 (5-7)
--- NOTE | 2021-03-23 14:01 | ECG_ITS ---
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 Measurements Intervals [place] Rate: 77 P: 59 [place]: 209 QRS: 29 QRSD: 126 T: 3 QT: 392 QTc: 445 Interpretive Statements SINUS RHYTHM INDETERMINATE AXIS RIGHT BUNDLE BRANCH BLOCK [120+ ms QRS DURATION, UPRIGHT V1, 40+ ms S IN I/aVL/V4/V5/V6] Compared to ECG 03/23/2021 12:37:39 Ventricular premature complex(es) no longer present Electronically Signed On 03-24-2021 18:39:12 CDT by Fifi Aguilar M.D. [id number]
[2021-03-23 14:54] LABS: Troponin 5 2HR 11.29 ng/L (0-15); Troponin 5 2HR Delta 1.29 ABS# (0-10)
== END 2021-03-23 15:41 | disposition home or self-care (01) ==
PROVIDERS: Emergency Provider Family Medicine; PCP Family Medicine
DX: H81.10 Benign paroxysmal vertigo, unspecified ear (principal)
CPT/HCPCS: 70450; 71045; 80053; 81003; 82550; 84443; 84484; 85025; 93005; 99284

== ENCOUNTER 2021-03-26 07:41 | Inpatient (IN) | payer MEDICARE, BC, SELFPAY ==
[2021-03-26] VITALS (18 sets, daily range): BP systolic 98–151; BP diastolic 52–77; PULSE 54–79; RESP 18–22; TEMP 17.2–37.1; O2SAT 82–96; BMI 27.6
--- NOTE | 2021-03-26 08:03 | ECG_ITS ---
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 Measurements Intervals [place] Rate: 61 P: 186 [place]: 206 QRS: 185 QRSD: 99 T: 175 QT: 421 QTc: 427 Interpretive Statements ECTOPIC ATRIAL RHYTHM WITH OCCASIONAL VENTRICULAR PREMATURE COMPLEXES POSSIBLE RIGHT VENTRICULAR HYPERTROPHY [SOME/ALL OF: PROMINENT R IN V1, LATE TRANSITION, RAD, GURU, SSS] Compared to ECG 03/23/2021 14:07:59 Ectopic atrial rhythm now present Ventricular premature complex(es) now present Atrial abnormality now present Sinus rhythm no longer present Indeterminate axis no longer present Right bundle-branch block no longer present Electronically Signed On 03-26-2021 14:55:30 CDT by Lucho Jimenez M.D. [id number]
--- NOTE | 2021-03-26 08:03 | ED_ITS ---
HPI - General Adult General: Chief complaint: COVID symptoms Stated complaint: covid +, sob Time Seen by Provider: 03/26/21 08:02 History of Present Illness: HPI narrative: This patient is a 86-year-old male who presents to the emergency department with complaint of shortness of breath weakness fatigue. No fever. Patient was diagnosed with Covid approximately 3 days ago. O2 saturation 88% on room air. Patient states she just has no energy. Will do medical evaluation treat as needed complaint: Covid Onset (ago): day(s) Relieving factors: none Exacerbating factors: none Associated symptoms: Reports cough, dyspnea and short of breath; Deny chest pain, headache(s), nausea, rash, palpitations or vomiting Review of Systems General: Reports: 10 or more systems reviewed and unremarkable except in HPI and below Const: Reports: body aches and fatigue; Denies: fever(s) or chills Eyes: Denies: change in vision or blurry vision ENMT: Denies: throat pain, hoarseness or mouth pain Card: Denies: chest pain, palpitations, irregular heart rhythm, edema, swelling of feet/ankles or lightheadedness Resp: Reports: dyspnea and non-productive cough GI: Denies: abdominal pain, nausea or vomiting : Denies: flank pain, dysuria, urinary frequency, urinary urgency or urinary hesitancy Musc: Denies: neck pain, back pain, extremity pain, extremity swelling, joint pain, joint swelling, joint redness, joint warmth or limited range of motion Skin/Breast: Denies: rash, pruritus, erythema or skin tenderness Neuro: Denies: headache(s), numbness in extremities or weakness in extremities Psych: Denies: anxiety or depression PFSH ED PFSH: Medical History Dysuria Intervertebral disc disorder with radiculopathy of lumbosacral region Lumbar disc disease Lumbar stenosis with neurogenic claudication Other spondylosis with radiculopathy, lumbar region Spondylolisthesis of lumbosacral region Spondylolisthesis, lumbar region Surgical History H/O transurethral resection of prostate Family History Mother Cancer Father Myocardial infarction Social History Smoking and tobacco status: never smoked Alcohol intake: never Household members: spouse Marital status: Current occupational status: employed 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 [employer] History of recent travel: No Physical Exam Const: COMMON NORMALS: no acute distress, average body habitus, patient oriented x3, no limitations, healthy appearing, alert and well nourished HENMT: COMMON NORMALS: normocephalic, atraumatic, hearing grossly normal bilaterally, external ears normal, EAC's normal, TM's normal bilaterally, Normal external nose present, Normal nasal mucous membranes and turbinates present, moist oral mucous membranes, oropharynx normal, dentition normal and gingiva normal HEAD & SCALP: normocephalic and atraumatic NOSE: Normal external nose present and Normal nasal mucous membranes and turbinates present EXTERNAL EAR: Yes external ears normal EXTERNAL AUDITORY CANAL: EAC's normal TYMPANIC MEMBRANE: TM's normal bilaterally Neck/C-Spine: COMMON NORMALS: full ROM, no lymphadenopathy, supple, no meningeal signs, no JVD, Thyroid normal and No carotid bruits THYROID: Thyroid normal Chest: COMMONS NORMALS: normal inspection of the chest, normal palpation of entire chest wall, normal inspection of the breasts and normal palpation of the breasts Breast/axilla inspection: Yes normal inspection of the breasts BREAST/AXILLA PALPATION: Yes normal palpation of the breasts Resp: COMMON NORMALS: normal respiratory effort, No retractions, No use of accessory muscles, clear to auscultation bilaterally and percussion normal AUSCULTATION: clear to auscultation bilaterally PERCUSSION: percussion normal Cardio: COMMON NORMALS: no JVD, regular rate, regular rhythm, S1 normal heart sound present, S2 normal heart sound present, No gallops present (Cardio), No clicks present (Cardio), No murmurs present (Cardio), No rub (Cardio) and Peripheral pulses 2+ throughout RATE: regular rate RHYTHM: regular rhythm HEART SOUNDS: S1 normal heart sound present and S2 normal heart sound present PERIPHERAL PULSES: Peripheral pulses 2+ throughout GI: COMMON NORMALS: Normal to inspection, nondistended, normoactive bowel sounds present, Soft to palpation, non-tender, No hepatosplenomegaly present, no masses and no bruits PALPATION: Yes Soft to palpation and Yes No hepatosplenomegaly present : COMMON NORMALS: Yes no CVA tenderness BLADDER/KIDNEY EXAM: Yes no CVA tenderness Back/Pelvis: COMMON NORMALS: no CVA tenderness, thoracic and lumbar spine normal to inspection, no thoracic nor lumbar tenderness, thoraco-lumbar ROM normal and straight leg raise negative bilaterally Extremity: COMMON NORMALS: normal to inspection, full ROM, capillary refill normal, no joint enlargement, no clubbing, cyanosis or edema, no calf tenderness and no pedal edema Neuro: COMMON NORMALS: patient oriented x3 SENSORIUM/ORIENTATION: Yes alert MENINGEAL SIGNS: Yes no meningeal signs Course Reevaluation(s): Reevaluation #1: Patient is O2 sat 95% on 5 L by nasal cannula. Patient is otherwise stable. Patient is agreeable to be admission to the hospital. Time: 10:44 Consultations: Consultation #1: I did discuss at length with Dr. Austin, hospitalist. She request the patient be started on his Remdesivir. She will see patient write additional orders. Time: 10:45 Vital Signs: Vital signs: Vital Signs Temperature 98.7 F 03/26/21 08:07 Pulse Rate 71 03/26/21 10:00 Respiratory Rate 19 H 03/26/21 10:00 Blood Pressure 115/58 03/26/21 10:00 Pulse Oximetry 95 03/26/21 10:00 MDM - General Adult MDM Narrative: Medical decision making narrative: This patient is a 86-year-old male who presents to the emergency department with complaint of shortness of breath weakness fatigue. No fever. Patient was diagnosed with Covid approximately 3 days ago. O2 saturation 88% on room air. Patient sta Patient is O2 sat 95% on 5 L by nasal cannula. Patient is otherwise stable. Patient is agreeable to be admission to the hospital.philip she just has no energy. Will do medical evaluation treat as needed I did discuss at length with Dr. Austin, hospitalist. She request the patient be started on his Remdesivir. She will see patient write additional orders. Medical Records: Attestation: I reviewed the patient's medical records. Lab Data: Attestation: I reviewed the patient's lab results. Labs: Lab Results 03/26/21 03/26/21 03/26/21 Range/Units 08:32 08:32 08:32 WBC 4.8 (4.0-10.0) 10^3/ uL RBC 4.93 (4.1-5.3) 10^6/u L Hgb 13.0 (11.7-16.6) g/dL Hct 40.1 L (42.0-52.0) % MCV 81.3 (80-94) fL MCH 26.4 L (28.0-34.0) pg MCHC 32.4 (30.0-36.0) g/dL RDW 16.7 H (12.1-15.1) % Plt Count 130 (130-400) 10^3/c mm MPV 9.6 (7.4-10.4) fL Neut % (Auto) 83.2 % Lymph % (Auto) 10.8 % Lassen % (Auto) 5.2 % Eos % (Auto) 0.0 % Baso % (Auto) 0.2 % Neut # (Auto) 3.99 (1.8-7.7) 10^3/u L Lymph # (Auto) 0.5 L (0.8-4.8) 10^3/u L Lassen # (Auto) 0.3 (0.2-0.9) 10^3/u L Eos # (Auto) 0.0 (0.0-0.8) 10^3/u L Baso # (Auto) 0.0 (0.0-0.1) 10^3/u L Nucleated RBC % (a uto) 0 % Nucleated RBCs # 0.0 /100WBC PT 13.60 (12.1-14.9) SECO NDS INR 1.01 (0.8-1.2) APTT 33.0 (23.9-36.7) SECO NDS D-Dimer 1.05 H (0-0.59) ug/mIFE U Specimen Type Sample Site ABG pH (7.35-7.45) ABG pCO2 (35-45) mmHg ABG pO2 (80.0-100.0) mmH g ABG HCO3 (22-26) mmol/L ABG O2 Saturation ABG Base Excess (-2.0-2.0) mmol/ L Johnnie Test A-a O2 Gradient (5-10) mmHg Hematocrit (42-52) % Hgb O2 Saturation (95-100) % Carboxyhemoglobin (0.4-20.1) %THgb Methemoglobin (0.4-1.5) % Total Hemoglobin (14-18) g/dL Ionized Calcium (1.1-1.4) mmol/L O2 Delivery Device O2 Liters/Min % FiO2 % Terrazzo Polisher Helper ID Sodium 125 L (136-145) mmol/L Potassium 4.3 (3.5-5.1) mmol/L Chloride 89 L (98-107) mmol/L Carbon Dioxide 23 (22-29) mmol/L Anion Gap 17.3 (5-19) BUN 16 (8-23) mg/dL Creatinine 1.1 (0.7-1.2) mg/dL GFR Calculation Not Reportable Glucose 151 H (65-115) mg/dL Calculated Osmolal ity 264 L (285-295) mOsm/k g Lactic Acid (0.5-2.2) mmol/L Calcium 7.7 L (8.5-10.5) mg/dL Total Bilirubin 0.7 (0.15-1.2) mg/dL AST 27 (0-40) U/L ALT 19 (0-41) U/L Alkaline Phosphata se 66 (40-130) IU/L Troponin T Gen 5 n g/L (0-15) ng/L NT-Pro-B Natriuret Pep 116 (0-450) pg/mL Total Protein 6.0 L (6.6-8.7) g/dL Albumin 3.2 L (3.5-5.2) g/dL Globulin 2.8 (1.3-4.6) g/dL 03/26/21 03/26/21 03/26/21 Range/Units 08:32 08:32 08:45 WBC (4.0-10.0) 10^3/ uL RBC (4.1-5.3) 10^6/u L Hgb (11.7-16.6) g/dL Hct (42.0-52.0) % MCV (80-94) fL MCH (28.0-34.0) pg MCHC (30.0-36.0) g/dL RDW (12.1-15.1) % Plt Count (130-400) 10^3/c mm MPV (7.4-10.4) fL Neut % (Auto) % Lymph % (Auto) % Lassen % (Auto) % Eos % (Auto) % Baso % (Auto) % Neut # (Auto) (1.8-7.7) 10^3/u L Lymph # (Auto) (0.8-4.8) 10^3/u L Lassen # (Auto) (0.2-0.9) 10^3/u L Eos # (Auto) (0.0-0.8) 10^3/u L Baso # (Auto) (0.0-0.1) 10^3/u L Nucleated RBC % (a uto) % Nucleated RBCs # /100WBC PT (12.1-14.9) SECO NDS INR (0.8-1.2) APTT (23.9-36.7) SECO NDS D-Dimer (0-0.59) ug/mIFE U Specimen Type Arterial Sample Site Radial, right ABG pH 7.41 (7.35-7.45) ABG pCO2 37.7 (35-45) mmHg ABG pO2 62.1 L (80.0-100.0) mmH g ABG HCO3 23.6 (22-26) mmol/L ABG O2 Saturation 92.9 ABG Base Excess -0.9 (-2.0-2.0) mmol/ L Johnnie Test Pos A-a O2 Gradient 15.5 H (5-10) mmHg Hematocrit 39.1 L (42-52) % Hgb O2 Saturation 91.5 L (95-100) % Carboxyhemoglobin 1.1 (0.4-20.1) %THgb Methemoglobin 0.3 L (0.4-1.5) % Total Hemoglobin 12.7 L (14-18) g/dL Ionized Calcium 1.0 L (1.1-1.4) mmol/L O2 Delivery Device Nc O2 Liters/Min 3.0 % FiO2 32.0 % Terrazzo Polisher Helper ID glc Sodium 125.0 L (136-145) mmol/L Potassium 4.0 (3.5-5.1) mmol/L Chloride (98-107) mmol/L Carbon Dioxide (22-29) mmol/L Anion Gap (5-19) BUN (8-23) mg/dL Creatinine (0.7-1.2) mg/dL GFR Calculation Glucose 154.0 H (65-115) mg/dL Calculated Osmolal ity (285-295) mOsm/k g Lactic Acid 1.2 (0.5-2.2) mmol/L Calcium (8.5-10.5) mg/dL Total Bilirubin (0.15-1.2) mg/dL AST (0-40) U/L ALT (0-41) U/L Alkaline Phosphata se (40-130) IU/L Troponin T Gen 5 n g/L 11 (0-15) ng/L NT-Pro-B Natriuret Pep (0-450) pg/mL Total Protein (6.6-8.7) g/dL Albumin (3.5-5.2) g/dL Globulin (1.3-4.6) g/dL Imaging Data^: CXR: Attestation: I personally reviewed and interpreted this imaging study as follows: Radiologist's impression: FINDINGS: The lungs are hypoinflated. There are areas of atelectasis in both lungs. There are patchy areas of groundglass density with nodular and linear infiltrates associated. This is most evident in the left mid and left lower lung ritter. The right mid lung field is involved to the pleura. Degenerative changes in the thoracic spine. Bony thorax otherwise intact. XR/XR chest 1V portable [id number] IMPRESSION: Presumed acute pneumonitis the character of which is very suggestive of Covid pneumonitis. CT Chest: Attestation: I personally reviewed and interpreted this imaging study as follows: Radiologist's impression: FINDINGS: No pulmonary emboli. Normal thoracic aorta. Minor hilar adenopathy. No significant mediastinal adenopathy or mass. No lung mass. Extensive groundglass infiltrative changes in both lungs predominating in the subpleural regions. No pleural fluid. The bony thorax is intact. CT/CT angio chest PE protcl [id number] IMPRESSION: Findings compatible with Covid pneumonitis. No pulmonary emboli. Discharge Plan Discharge Patient Disposition: Admitted As Inpatient Clinical Impression: Shortness of breath, Suspected severe acute respiratory syndrome coronavirus 2 (SARS-CoV-2) infection Condition: Stable Prescriptions: No Action tramadol 50 mg tablet 50 mg PO Q6H PRN (Reason: Pain) RF: 0 losartan 100 mg tablet 100 mg PO DAILY RF: 0 rosuvastatin 40 mg tablet 40 mg PO DAILY RF: 0 ergocalciferol (vitamin D2) 50 mcg (2,000 unit) capsule 50 mcg PO DAILY RF: 0 pramipexole [Mirapex] 0.125 mg tablet 0.125 mg PO DAILY RF: 0 duloxetine 20 mg capsule,delayed release(DR/EC) 20 mg PO DAILY RF: 0 pantoprazole 40 mg tablet,delayed release (DR/EC) 40 mg PO DAILY RF: 0 Referrals: Cole Tompkins MD [Primary Care Provider] - Coding Level of Care Code ED Right Of Way Clearer for Chg Fwd Exam Comprehensive
--- NOTE | 2021-03-26 08:03 | XR_ITS ---
WS: [id number] XR chest 1V portable [id number] REASON FOR EXAM: Cough FINDINGS: The lungs are hypoinflated. There are areas of atelectasis in both lungs. There are patchy areas of groundglass density with nodular and linear infiltrates associated. This is most evident in the left mid and left lower lung ritter. The right mid lung field is involved to the pleura. Degenerative changes in the thoracic spine. Bony thorax otherwise intact. XR/XR chest 1V portable [id number] IMPRESSION: Presumed acute pneumonitis the character of which is very suggestive of Covid p neumonitis.
[2021-03-26] MEDS: sodium chloride 0.9% 500 ML IV (08:34)
[2021-03-26] MEDS: dexamethasone 10 mg/mL INJ IV (08:34)
[2021-03-26] MEDS: albuterol 8 gm MDI 2 PUFF INHALATION (08:40)
[2021-03-26 08:42] LABS: Basophils % 0.2 %; Hematocrit 40.1 % (42.0-52.0); Lymphocytes # 0.5 10^3/uL (0.8-4.8); Lymphocytes % 10.8 %; Mean Corpuscular HGB Conc 32.4 g/dL (30.0-36.0); Mean Corpuscular Hemoglobin 26.4 pg (28.0-34.0); Mean Corpuscular Volume 81.3 fL (80-94); Mean Platelet Volume 9.6 fL (7.4-10.4); Monocytes # 0.3 10^3/uL (0.2-0.9); Monocytes % 5.2 %; Neutrophils # 3.99 10^3/uL (1.8-7.7); Neutrophils % 83.2 %; Nucleated Red Blood Cells % 0 %; Platelet Count 130 10^3/cmm (130-400); Red Blood Count 4.93 10^6/uL (4.1-5.3); Red Cell Distribution Width 16.7 % (12.1-15.1); White Blood Count 4.8 10^3/uL (4.0-10.0)
[2021-03-26 08:55] LABS: INR 1.01 (0.8-1.2)
[2021-03-26 08:55] LABS: ABG PCO2 37.7 mmHg (35-45); ABG PH Result 7.41 (7.35-7.45); Alveolar-Arterial Oxygen Gradi 15.5 mmHg (5-10); Arterial Blood Gas Hematocrit 39.1 % (42-52); Base Excess ABG -0.9 mmol/L (-2.0-2.0); Blood Gas Allen Test Pos; Blood Gas Operator Identificat glc; Blood Gas Sample Site Radial, right; Blood Gas Sample Type Arterial; Carboxyhemoglobin 1.1 %THgb (0.4-20.1); HCO3 ABG 23.6 mmol/L (22-26); HGB O2 Sat 91.5 % (95-100); Methemoglobin 0.3 % (0.4-1.5); Oxygen Device NC; Oxygen Saturation ABG 92.9; PO2 ABG 62.1 mmHg (80.0-100.0); Total Hemoglobin 12.7 g/dL (14-18)
[2021-03-26 08:58] LABS: D Dimer 1.05 ug/mIFEU (0-0.59)
[2021-03-26 09:01] LABS: Lactic Sepsis W/Reflex 1.2 mmol/L (0.5-2.2)
[2021-03-26 09:02] LABS: Troponin T (5th) Once 11 ng/L (0-15)
--- NOTE | 2021-03-26 09:03 | CT_ITS ---
WS: [id number] CT angio chest PE protcl [id number] REASON FOR EXAM: SOB with Elevated DDimer TECHNIQUE: Coronal and sagittal 2-D and MIP reformations. IV CONTRAST ADMINISTERED: Visipaque 74 mL TOTAL EXAM DLP: 560.[address] scans at [facility] use at least one of these dose optimization techniques: automat ed exposure control; mA and/or kV adjustment per patient size (includes targeted exams where dose is matched to clinical indication); or iterative reconstruction. FINDINGS: No pulmonary emboli. Normal thoracic aorta. Minor hilar adenopathy. No significant mediastinal adenopathy or mass. No lung mass. Extensive groundglass infiltrative changes in both lungs predominating in the subpleura l regions. No pleural fluid. The bony thorax is intact. CT/CT angio chest PE protcl [id number] IMPRESSION: Findings compatible with Covid pneumonitis. No pulmonary emboli.
[2021-03-26 09:11] LABS: Alanine Aminotransferase 19 U/L (0-41); Albumin Level 3.2 g/dL (3.5-5.2); Alkaline Phosphatase 66 IU/L (40-130); Anion Gap 17.3 (5-19); Aspartate Amino Transferase 27 U/L (0-40); Blood Urea Nitrogen 16 mg/dL (8-23); Calcium 7.7 mg/dL (8.5-10.5); Carbon Dioxide 23 mmol/L (22-29); Chloride 89 mmol/L (98-107); Globulin 2.8 g/dL (1.3-4.6); Glucose 151 mg/dL (65-115); NT Pro B Type Natriuretic Pept 116 pg/mL (0-450); Osmolality Calculated 264 mOsm/kg (285-295); Potassium 4.3 mmol/L (3.5-5.1); Sodium 125 mmol/L (136-145); Total Bilirubin 0.7 mg/dL (0.15-1.2)
[2021-03-26] MEDS: iodixanol 320 mg/mL 100mL Btl IV (09:24)
[2021-03-26] MEDS: remdesivir 200 MG in sodium chloride 0.9% (100 ml) 100 ML 100 MG IV (11:01)
[2021-03-26 13:52] LABS: Urine Appearance Clear (CLEAR); Urine Color Yellow (Yellow); pH Urine 5 (5-7)
[2021-03-26 13:53] LABS: Add Urine Microscopic? YES; Bilirubin Urine Neg (Negative); Blood Urine Trace (Negative); Glucose Urine UA Trace (Normal); Ketones Urine Negative (Negative); Leukocyte Esterase Urine Negative (Negative); Nitrate Urine Negative (Negative); Protein Urine Trace (Negative); RBC Urine 0-4 /hpf (0-2); Urobilinogen Urine 1 mg/dL (Negative)
[2021-03-26 13:54] LABS: Bacteria Urine TRACE /hpf
[2021-03-26] MEDS: TRAMadol 50 mg Tablet 100 MG PO (18:04)
--- NOTE | 2021-03-26 18:10 | PM.HP ---
Providers/Chief Complaint Admitting Physician: Samy Austin DO Primary Care Provider: Cole Tompkins MD Chief Complaint: covid +, sob History of Present Illness Ta Portillo is a 86 year old male who denies any significant past medical history. He states that he has been feeling poorly for about a week. His symptoms were weakness and cough. He states he came to the emergency room on and he was discharged and then subsequently on Thursday he came and was discharged and finally went to an urgent care either Thursday or yester and was diagnosed with Covid. He came in today for worsening shortness of breath. He was found to be hypoxic on room air. He states that his is in the emergency room as well and she has Covid too. Review of Systems Const: Denies: fever(s) or chills Eyes: Denies: change in vision ENMT: Denies: throat pain or nasal congestion Card: Denies: chest pain or palpitations Resp: Reports: dyspnea, non-productive cough and chest congestion GI: Denies: abdominal pain, nausea, vomiting or change in stool character : Denies: difficulty urinating or dysuria Musc: Reports: extremity pain (bilateral thigh pain for which he takes ultram) Skin/Breast: Denies: rash or lesions Neuro: Denies: headache(s) or dizziness Psych: Denies: anxiety or depression Kike/Lymph: Denies: easy bruising or easy bleeding Medications/Allergies Home Medications Medication Instructions Recorded Confirmed Last Taken Type ergocalciferol (vitamin D2) 50 mcg 50 mcg PO DAILY 10/24/19 03/26/21 03/22/21 History (2,000 unit) capsule losartan 100 mg tablet 100 mg PO DAILY 10/24/19 03/26/21 03/22/21 History pramipexole 0.125 mg tablet 0.125 mg PO DAILY 10/24/19 03/26/21 03/22/21 History rosuvastatin 40 mg tablet 40 mg PO DAILY 10/24/19 03/26/21 03/22/21 History tramadol 50 mg tablet 50 mg PO Q6H PRN 10/24/19 03/26/21 03/22/21 History duloxetine 20 mg capsule,delayed 20 mg PO DAILY cap 02/27/21 03/26/21 03/22/21 History release pantoprazole 40 mg tablet,delayed 40 mg PO DAILY 02/27/21 03/26/21 03/22/21 History release Allergies Allergy/AdvReac Type Severity Reaction Status Date / Time hydroxyzine Allergy Mild dry mouth Verified 03/26/21 07:59 ofloxacin [From Floxin] Allergy Mild dry mouth Verified 03/26/21 07:59 metformin Allergy blacked out Verified 03/26/21 07:59 PFSH Acute PFSH: Medical History Dysuria Intervertebral disc disorder with radiculopathy of lumbosacral region Lumbar disc disease Lumbar stenosis with neurogenic claudication Other spondylosis with radiculopathy, lumbar region Spondylolisthesis of lumbosacral region Spondylolisthesis, lumbar region Surgical History H/O transurethral resection of prostate Family History Mother Cancer Father Myocardial infarction Social History Smoking and tobacco status: never smoked Alcohol intake: never Household members: spouse Marital status: Current occupational status: employed 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 [employer] History of recent travel: No Vitals/I&O/Wt Last Vital Signs Temp 98.7 F 03/26/21 08:07 Pulse 55 L 03/26/21 16:02 Resp 20 H 03/26/21 16:02 BP 129/69 03/26/21 16:02 Pulse Ox 94 03/26/21 16:02 03/26/21 03/26/21 03/26/21 06:59 14:59 22:59 Intake Total 600 / 600 Balance 600 / 600 Weight last 48 hrs Weight 82.554 kg Physical Exam Const: COMMON NORMALS: no acute distress and average body habitus GENERAL APPEARANCE: cooperative and comfortable ORIENTATION/CONSCIOUSNESS: Yes lethargic OTHER: sleeping when I enter room times 2 HENMT: COMMON NORMALS: normocephalic and atraumatic; hearing grossly not normal bilaterally (hearing is poor) FACE & SINUS: normal facial exam NOSE: Normal external nose present and Normal nares present GENERAL EAR: hearing grossly impaired Eye: COMMON NORMALS: Equal, round and reactive pupils present, EOMs intact bilaterally and no scleral icterus Neck/C-Spine: COMMON NORMALS: no lymphadenopathy, supple, no JVD and No carotid bruits Lymph: LYMPHATIC: no lymphadenopathy noted Chest: COMMONS NORMALS: normal inspection of the chest and normal palpation of entire chest wall Resp: COMMON NORMALS: normal respiratory effort EFFORT & INSPECTION: Yes able to speak in complete sentences and Yes tachypneic AUSCULTATION: crackles (bilateral lower lung ritter posteriorly) and diminished lung sounds diffuse Cardio: COMMON NORMALS: no JVD, regular rate, regular rhythm, S1 normal heart sound present, S2 normal heart sound present and No murmurs present (Cardio) GI: COMMON NORMALS: Normal to inspection, nondistended, normoactive bowel sounds present, Soft to palpation, non-tender and No hepatosplenomegaly present : COMMON NORMALS: Yes no CVA tenderness Back/Pelvis: COMMON NORMALS: straight leg raise negative bilaterally Extremity: COMMON NORMALS: normal to inspection and no clubbing, cyanosis or edema Neuro: COMMON NORMALS: patient oriented x3, CN's II-XII intact bilaterally, moves all extremities, no focal motor deficits and no sensory deficits noted Psych: COMMON NORMALS: mental status grossly normal, Normal thought process present, cooperative, normal affect and speech normal Skin: GENERAL SKIN EXAM: no rashes or lesions noted Data : 03/26/21 08:32 03/26/21 08:32 A&P Assessment and plan (1) COVID-19: supportive care remdesivir and decadron oxygen keep on dry side, no fluids. Status: Acute (2) Hypoxia: oxygen Status: Acute (3) Shortness of breath: symptomatic treatment Status: Acute (4) Extremity pain: takes ultram will order. Status: Acute (5) DNR no code (do not resuscitate): see below Status: Acute (6) DNR (do not resuscitate) discussion: discussed pt wishes if pt had catastrophic event requiring mechanical intubation or CPR or cardiac shock. Pt states I wouldn't want anything done I lived a good life He told me about the land he lives on and how many houses he had and is proud of his life. Status: Acute Attestations Medical Necessity Statement*: elderly patient becoming increasingly hypoxic with COVID symptoms for 1 week requiring significant oxygen supplementation will require over 2 MN to treat for COVID. Coding Level of Care Code Acute Automotive Leasing Sales Representative for Chg Fwd Diagnoses COVID-19 U07.1 Hypoxia R09.02 Shortness of breath R06.02 Extremity pain M79.609 DNR no code (do not resuscitate) Z66 DNR (do not resuscitate) discussion Z71.89
--- NOTE | 2021-03-26 18:18 | PC.NURSE ---
pt daughter on the phone for update.
[2021-03-26 19:48] LABS: SARS Covid-2 Antigen Positive (Negative)
[2021-03-27] VITALS (10 sets, daily range): BP systolic 105–131; BP diastolic 48–77; PULSE 56–73; RESP 17–29; TEMP 36.4–36.8; O2SAT 87–95
[2021-03-27] MEDS: pramipexole 0.25 mg Tablet 0.125 MG PO ×2 (00:42→21:48)
[2021-03-27] MEDS: atorvastatin 40 mg Tablet 80 MG PO ×2 (00:42→21:49)
--- NOTE | 2021-03-27 01:47 | PC.NURSE ---
assumed care of patient at 0010 from Heather RESENDIZ
--- NOTE | 2021-03-27 01:56 | PC.NURSE ---
Report given to Belkis RESENDIZ on med-surg at 0155
[2021-03-27] MEDS: remdesivir 100 MG in sodium chloride 0.9% (100 ml) 100 ML IV (06:29)
[2021-03-27] MEDS: enoxaparin 40 mg/0.4 mL Syringe SUBCUT (06:30)
[2021-03-27 07:08] LABS: Hematocrit 40.2 % (42.0-52.0); Hemoglobin 12.9 g/dL (11.7-16.6); Lymphocytes # 0.5 10^3/uL (0.8-4.8); Lymphocytes % 8.6 %; Mean Corpuscular HGB Conc 32.1 g/dL (30.0-36.0); Mean Corpuscular Hemoglobin 26.4 pg (28.0-34.0); Mean Corpuscular Volume 82.2 fL (80-94); Mean Platelet Volume 9.8 fL (7.4-10.4); Monocytes # 0.3 10^3/uL (0.2-0.9); Monocytes % 5.8 %; Neutrophils # 4.54 10^3/uL (1.8-7.7); Nucleated Red Blood Cells % 0 %; Platelet Count 133 10^3/cmm (130-400); Red Blood Count 4.89 10^6/uL (4.1-5.3); Red Cell Distribution Width 16.3 % (12.1-15.1); White Blood Count 5.3 10^3/uL (4.0-10.0)
[2021-03-27 07:35] LABS: Anion Gap 13.6 (5-19); Blood Urea Nitrogen 17 mg/dL (8-23); Carbon Dioxide 26 mmol/L (22-29); Chloride 95 mmol/L (98-107); Glucose 170 mg/dL (65-115); Magnesium 2.2 mg/dL (1.7-2.3); Osmolality Calculated 276 mOsm/kg (285-295); Potassium 4.6 mmol/L (3.5-5.1); Sodium 130 mmol/L (136-145)
--- NOTE | 2021-03-27 10:14 | PM.PN ---
Subjective Subjective: Interval history: Feeling ok. using IS/acapella Vitals/I&O/Wt Last Vital Signs Temp 97.9 F 03/29/21 12:00 Pulse 60 03/29/21 16:57 Resp 18 03/29/21 16:57 BP 121/66 03/29/21 12:00 Pulse Ox 92 03/29/21 16:57 03/29/21 03/29/21 03/29/21 06:59 14:59 22:59 Intake Total 100 / 100 Output Total 1350 / 1400 Balance -1350 / -566 100 / 100 Physical Exam Narrative: EXAM NARRATIVE: sitting in chair, NAD, ill appearing H: Reg S1/S2 no loud murmur L: diminished with scattered crackles A: soft NT/ND nl BS E: no C/E/E Data : 03/29/21 07:00 03/29/21 07:00 A&P Assessment and plan (1) COVID-19: supportive care remdesivir and decadron Day 2 oxygen at 11 L keep on dry side, no fluids. Status: Acute (2) Hypoxia: oxygen RT ? NEED OPTIFLOW Status: Acute (3) Shortness of breath: symptomatic treatment Status: Acute (4) Extremity pain: takes ultram will order. Status: Acute (5) DNR no code (do not resuscitate): see below Status: Acute (6) DNR (do not resuscitate) discussion: discussed pt wishes if pt had catastrophic event requiring mechanical intubation or CPR or cardiac shock. Pt states I wouldn't want anything done I lived a good life He told me about the land he lives on and how many houses he had and is proud of his life. Status: Acute Attestations Medical Necessity Statement*: elderly patient becoming increasingly hypoxic with COVID symptoms for 1 week requiring significant oxygen supplementation at 11L will require over 2 MN to treat for COVID Coding Level of Care Code Acute Nuclear Technologist for [employer] Diagnoses COVID-19 U07.1 Hypoxia R09.02 Shortness of breath R06.02 Extremity pain M79.609 DNR no code (do not resuscitate) Z66 DNR (do not resuscitate) discussion Z71.89
[2021-03-27] MEDS: dexamethasone 4 mg/mL INJ 6 MG IVP (10:39)
[2021-03-27] MEDS: duloxetine 20 mg Capsule PO (10:41)
[2021-03-27] MEDS: pantoprazole DR 40 mg Tablet PO (10:41)
[2021-03-27] MEDS: losartan 50 mg Tablet 100 MG PO (10:41)
[2021-03-27] MEDS: docusate sodium 100 mg Capsule PO ×2 (10:41→18:58)
[2021-03-27] MEDS: TRAMadol 50 mg Tablet PO (15:56)
[2021-03-28] VITALS (13 sets, daily range): BP systolic 102–126; BP diastolic 58–72; PULSE 61–76; RESP 16–22; TEMP 36.5–36.8; O2SAT 84–94
[2021-03-28] MEDS: enoxaparin 40 mg/0.4 mL Syringe SUBCUT (07:04)
[2021-03-28 07:30] LABS: Hematocrit 41.5 % (42.0-52.0); Hemoglobin 13.5 g/dL (11.7-16.6); Lymphocytes # 0.6 10^3/uL (0.8-4.8); Lymphocytes % 7.3 %; Mean Corpuscular HGB Conc 32.5 g/dL (30.0-36.0); Mean Corpuscular Hemoglobin 26.8 pg (28.0-34.0); Mean Corpuscular Volume 82.5 fL (80-94); Mean Platelet Volume 9.6 fL (7.4-10.4); Monocytes # 0.4 10^3/uL (0.2-0.9); Monocytes % 4.1 %; Neutrophils # 7.71 10^3/uL (1.8-7.7); Nucleated Red Blood Cells % 0 %; Platelet Count 166 10^3/cmm (130-400); Red Blood Count 5.03 10^6/uL (4.1-5.3); Red Cell Distribution Width 16.3 % (12.1-15.1); White Blood Count 8.8 10^3/uL (4.0-10.0)
[2021-03-28] MEDS: remdesivir 100 MG in sodium chloride 0.9% (100 ml) 100 ML IV (07:52)
[2021-03-28 07:56] LABS: Anion Gap 13.6 (5-19); Blood Urea Nitrogen 21 mg/dL (8-23); Calcium 8.4 mg/dL (8.5-10.5); Carbon Dioxide 28 mmol/L (22-29); Chloride 97 mmol/L (98-107); Glucose 151 mg/dL (65-115); Osmolality Calculated 284 mOsm/kg (285-295); Potassium 4.6 mmol/L (3.5-5.1); Sodium 134 mmol/L (136-145)
[2021-03-28] MEDS: albuterol 8 gm MDI 2 PUFF INHALATION ×3 (08:23→21:21)
[2021-03-28] MEDS: dexamethasone 4 mg/mL INJ 6 MG IVP (10:19)
[2021-03-28] MEDS: docusate sodium 100 mg Capsule PO ×2 (10:21→18:21)
[2021-03-28] MEDS: losartan 50 mg Tablet 100 MG PO (10:22)
[2021-03-28] MEDS: pantoprazole DR 40 mg Tablet PO (10:22)
[2021-03-28 11:41] LABS: Glucose Point of Care 180 mg/dL (70-110)
[2021-03-28] MEDS: duloxetine 20 mg Capsule PO (12:53)
--- NOTE | 2021-03-28 18:00 | PM.PN ---
Subjective Subjective: Interval history: sitting in chair. using IS and acapella. doing well sleeping and eating. No new concerns Medications: Reviewed: Yes Vitals/I&O/Wt Last Vital Signs Temp 97.9 F 03/28/21 16:00 Pulse 67 03/28/21 16:00 Resp 18 03/28/21 16:00 BP 123/71 03/28/21 16:00 Pulse Ox 94 03/28/21 16:00 03/28/21 03/28/21 03/28/21 06:59 14:59 22:59 Intake Total 578 / 578 256 / 834 Balance 578 / 578 256 / 834 Physical Exam Narrative: EXAM NARRATIVE: Gen: NAD, color looks better H: Reg S1/S2 no loud murmur L: diminished with scattered crackles A: soft NT/ND nl BS E: no C/E/E Data : 03/28/21 06:43 03/28/21 06:43 A&P Assessment and plan (1) COVID-19: supportive care remdesivir and decadron Day 2 oxygen at 11 L keep on dry side, no fluids. Status: Acute (2) Hypoxia: oxygen RT to wean Status: Acute (3) Shortness of breath: symptomatic treatment Status: Acute (4) Extremity pain: takes ultram will order. Status: Acute (5) DNR no code (do not resuscitate): see below Status: Acute (6) DNR (do not resuscitate) discussion: discussed pt wishes if pt had catastrophic event requiring mechanical intubation or CPR or cardiac shock. Pt states I wouldn't want anything done I lived a good life He told me about the land he lives on and how many houses he had and is proud of his life. Status: Acute Attestations Medical Necessity Statement*: elderly patient becoming increasingly hypoxic with COVID symptoms for 1 week requiring significant oxygen supplementation at 11L will require over 2 MN to treat for COVID. 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
[2021-03-28] MEDS: TRAMadol 50 mg Tablet PO (18:20)
[2021-03-28] MEDS: pramipexole 0.25 mg Tablet 0.125 MG PO (21:03)
[2021-03-28] MEDS: atorvastatin 40 mg Tablet 80 MG PO (21:04)
[2021-03-29] VITALS (9 sets, daily range): BP systolic 120–130; BP diastolic 66–73; PULSE 60–87; RESP 18–24; TEMP 36.6–37.1; O2SAT 84–94
[2021-03-29] MEDS: enoxaparin 40 mg/0.4 mL Syringe SUBCUT (06:05)
[2021-03-29] MEDS: remdesivir 100 MG in sodium chloride 0.9% (100 ml) 100 ML IV (06:05)
[2021-03-29 08:44] LABS: Hematocrit 41.7 % (42.0-52.0); Hemoglobin 13.4 g/dL (11.7-16.6); Lymphocytes # 0.7 10^3/uL (0.8-4.8); Lymphocytes % 7.9 %; Mean Corpuscular HGB Conc 32.1 g/dL (30.0-36.0); Mean Corpuscular Hemoglobin 26.4 pg (28.0-34.0); Mean Corpuscular Volume 82.1 fL (80-94); Mean Platelet Volume 9.5 fL (7.4-10.4); Monocytes # 0.4 10^3/uL (0.2-0.9); Monocytes % 5.3 %; Neutrophils # 7.15 10^3/uL (1.8-7.7); Neutrophils % 86.4 %; Nucleated Red Blood Cells % 0 %; Platelet Count 197 10^3/cmm (130-400); Red Blood Count 5.08 10^6/uL (4.1-5.3); Red Cell Distribution Width 16.3 % (12.1-15.1); White Blood Count 8.3 10^3/uL (4.0-10.0)
[2021-03-29 09:13] LABS: Anion Gap 15.8 (5-19); Blood Urea Nitrogen 23 mg/dL (8-23); Calcium 8.6 mg/dL (8.5-10.5); Carbon Dioxide 28 mmol/L (22-29); Chloride 95 mmol/L (98-107); Glucose 134 mg/dL (65-115); Osmolality Calculated 284 mOsm/kg (285-295); Potassium 4.8 mmol/L (3.5-5.1); Sodium 134 mmol/L (136-145)
--- NOTE | 2021-03-29 11:40 | PC.SOCIAL ---
IMM Update IMM updated with patient's daughter Raeann. She verbalized an understanding. No questions voiced. Initialed, dated, timed, and placed in chart.
[2021-03-29] MEDS: pantoprazole DR 40 mg Tablet PO (11:57)
[2021-03-29] MEDS: duloxetine 20 mg Capsule PO (11:57)
[2021-03-29] MEDS: docusate sodium 100 mg Capsule PO ×2 (11:57→18:47)
[2021-03-29] MEDS: losartan 50 mg Tablet 100 MG PO (11:58)
[2021-03-29] MEDS: dexamethasone 4 mg/mL INJ 6 MG IVP (12:48)
[2021-03-29] MEDS: albuterol 8 gm MDI 2 PUFF INHALATION (16:54)
--- NOTE | 2021-03-29 17:00 | PM.PN ---
Subjective Medications: Reviewed: Yes Vitals/I&O/Wt Last Vital Signs Temp 97.9 F 03/29/21 12:00 Pulse 60 03/29/21 16:57 Resp 18 03/29/21 16:57 BP 121/66 03/29/21 12:00 Pulse Ox 92 03/29/21 16:57 03/29/21 03/29/21 03/29/21 06:59 14:59 22:59 Intake Total 100 / 100 Output Total 1350 / 1400 Balance -1350 / -566 100 / 100 Physical Exam Narrative: EXAM NARRATIVE: PULSE OX 86-88% WHILE IN ROOM ON 12L - I INCREASED TOLD BY RT HE DOESN'T TAKE A DEEP ENOUGH BREATH? Gen: NAD, color looks better H: Reg S1/S2 no loud murmur L: diminished with scattered crackles A: soft NT/ND nl BS E: no C/E/E Data : 03/29/21 07:00 03/29/21 07:00 A&P Assessment and plan (1) COVID-19: supportive care remdesivir and decadron Day 3 oxygen at 12 L keep on dry side, no fluids. CHECK INFLAM MARKERS, PROCAL Status: Acute (2) Hypoxia: oxygen RT ? NEED OPTIFLOW Status: Acute (3) Shortness of breath: symptomatic treatment Status: Acute (4) Extremity pain: takes ultram will order. Status: Acute (5) DNR no code (do not resuscitate): see below Status: Acute (6) DNR (do not resuscitate) discussion: discussed pt wishes if pt had catastrophic event requiring mechanical intubation or CPR or cardiac shock. Pt states I wouldn't want anything done I lived a good life He told me about the land he lives on and how many houses he had and is proud of his life. Status: Acute Attestations Medical Necessity Statement*: elderly patient becoming increasingly hypoxic with COVID symptoms for 1 week requiring significant oxygen supplementation at 11L will require over 2 MN to treat for COVID. Coding Level of Care Code Acute Liberal Arts Teacher for [facility] Diagnoses COVID-19 U07.1 Hypoxia R09.02 Shortness of breath R06.02 Extremity pain M79.609 DNR no code (do not resuscitate) Z66 DNR (do not resuscitate) discussion Z71.89
[2021-03-29] MEDS: atorvastatin 40 mg Tablet 80 MG PO (21:00)
[2021-03-29] MEDS: pramipexole 0.25 mg Tablet 0.125 MG PO (21:05)
[2021-03-29] MEDS: ipratropium-albuterol 3 mL Neb INHALATION (21:19)
[2021-03-30] VITALS (17 sets, daily range): BP systolic 121–152; BP diastolic 64–72; PULSE 62–94; RESP 17–30; TEMP 36.3–37.2; O2SAT 86–98
[2021-03-30] MEDS: ipratropium-albuterol 3 mL Neb INHALATION ×3 (03:33→22:00)
[2021-03-30 07:07] LABS: D Dimer 0.56 ug/mIFEU (0-0.59)
[2021-03-30 07:14] LABS: Lactate (Lactic Acid level) 2.2 mmol/L (0.5-2.2)
[2021-03-30 07:46] LABS: Procalcitonin 0.09 ng/mL (0-0.5)
[2021-03-30 07:57] LABS: C Reactive Protein 11.3 mg/L (0.0-4.9); Lactate Dehydrogenase 431 U/L (135-225); Magnesium 2.2 mg/dL (1.7-2.3)
[2021-03-30 08:12] LABS: Ferritin 1237 ng/mL (30-400)
[2021-03-30 10:05] LABS: Erythrocyte Sedimentation Rate 51 mm/hr (0-10)
[2021-03-30] MEDS: losartan 50 mg Tablet 100 MG PO (11:29)
[2021-03-30] MEDS: duloxetine 20 mg Capsule PO (11:29)
[2021-03-30] MEDS: docusate sodium 100 mg Capsule PO ×2 (11:30→19:21)
[2021-03-30] MEDS: pantoprazole DR 40 mg Tablet PO (11:30)
[2021-03-30] MEDS: dexamethasone 4 mg/mL INJ 6 MG IVP (11:30)
--- NOTE | 2021-03-30 17:26 | PM.PN ---
Subjective Subjective: Interval history: having to lie prone. admittedly anxious. Medications: Reviewed: Yes Vitals/I&O/Wt Last Vital Signs Temp 98.1 F 03/30/21 08:00 Pulse 66 03/30/21 14:48 Resp 18 03/30/21 14:41 BP 132/72 03/30/21 12:00 Pulse Ox 93 03/30/21 14:41 03/30/21 03/30/21 03/30/21 06:59 14:59 22:59 Intake Total 240 / 240 Output Total 500 / 900 Balance -500 / -500 240 / 240 Physical Exam Narrative: EXAM NARRATIVE: prone, anxious, flush, warm, ill appearing H: Reg S1/S2 no loud murmur L: very diminished poor air movement with bibasilar crackles A: soft NT/ND nl BS E: no C/E/E Data : 03/29/21 07:00 03/29/21 07:00 A&P Assessment and plan (1) COVID-19: supportive care remdesivir and decadron Day 3 on HHF 55L and 80% keep on dry side, no fluids. Inflammatory markers D dimer nl at .56 ferritin 1237 (30-400) CRP 11.3 (<5) lactate nl at 2.2 procal nl at 0.09 - indicative of no other infection Status: Acute (2) Hypoxia: Changed to HHF since I saw him. needs to take deeper breathes. Status: Acute (3) Shortness of breath: symptomatic treatment Status: Acute (4) Extremity pain: takes ultram will order. Status: Acute (5) DNR no code (do not resuscitate): see below Status: Acute (6) DNR (do not resuscitate) discussion: discussed pt wishes if pt had catastrophic event requiring mechanical intubation or CPR or cardiac shock. Pt states I wouldn't want anything done I lived a good life He told me about the land he lives on and how many houses he had and is proud of his life. Status: Acute Attestations Medical Necessity Statement*: critically ill with severe respriatory failure from COVID 19 requiring high flow oxygen. Coding Level of Care Code Acute Prn Occupational Therapist for [facility] Fwd Diagnoses COVID-19 U07.1 Hypoxia R09.02 Shortness of breath R06.02 Extremity pain M79.609 DNR no code (do not resuscitate) Z66 DNR (do not resuscitate) discussion Z71.89
[2021-03-30] MEDS: atorvastatin 40 mg Tablet 80 MG PO ×2 (22:38→22:39)
[2021-03-30] MEDS: pramipexole 0.25 mg Tablet 0.125 MG PO (22:39)
[2021-03-31] VITALS (16 sets, daily range): BP systolic 105–129; BP diastolic 42–76; PULSE 64–84; RESP 16–32; TEMP 36.2–36.8; O2SAT 85–94
[2021-03-31] MEDS: ipratropium-albuterol 3 mL Neb INHALATION ×4 (03:51→22:50)
[2021-03-31] MEDS: enoxaparin 40 mg/0.4 mL Syringe SUBCUT (05:28)
[2021-03-31] MEDS: lanolin oint 7 gm 1 APPLIC TOPICAL (05:28)
[2021-03-31 06:57] LABS: Basophils % 0.1 %; Hematocrit 39.6 % (42.0-52.0); Hemoglobin 13.1 g/dL (11.7-16.6); Lymphocytes # 0.4 10^3/uL (0.8-4.8); Lymphocytes % 4.6 %; Mean Corpuscular HGB Conc 33.1 g/dL (30.0-36.0); Mean Corpuscular Hemoglobin 26.4 pg (28.0-34.0); Mean Corpuscular Volume 79.8 fL (80-94); Monocytes # 0.4 10^3/uL (0.2-0.9); Monocytes % 4.1 %; Neutrophils # 8.45 10^3/uL (1.8-7.7); Neutrophils % 90.3 %; Nucleated Red Blood Cells % 0 %; Platelet Count 217 10^3/cmm (130-400); Red Blood Count 4.96 10^6/uL (4.1-5.3); Red Cell Distribution Width 16.1 % (12.1-15.1); White Blood Count 9.4 10^3/uL (4.0-10.0)
[2021-03-31 07:29] LABS: Alanine Aminotransferase 29 U/L (0-41); Albumin Level 3.1 g/dL (3.5-5.2); Alkaline Phosphatase 82 IU/L (40-130); Aspartate Amino Transferase 26 U/L (0-40); Blood Urea Nitrogen 21 mg/dL (8-23); Carbon Dioxide 24 mmol/L (22-29); Chloride 91 mmol/L (98-107); Globulin 2.9 g/dL (1.3-4.6); Glucose 162 mg/dL (65-115); Osmolality Calculated 267 mOsm/kg (285-295); Sodium 125 mmol/L (136-145); Total Bilirubin 0.9 mg/dL (0.15-1.2)
[2021-03-31 07:47] LABS: Anion Gap 14.2 (5-19); Potassium 4.2 mmol/L (3.5-5.1)
[2021-03-31] MEDS: dexamethasone 4 mg/mL INJ 6 MG IVP (09:15)
[2021-03-31] MEDS: docusate sodium 100 mg Capsule PO ×2 (09:15→17:45)
[2021-03-31] MEDS: duloxetine 20 mg Capsule PO (09:15)
[2021-03-31] MEDS: pantoprazole DR 40 mg Tablet PO (09:15)
--- NOTE | 2021-03-31 18:41 | P.PN_ITS ---
Subjective Subjective: Interval history: says he is better seems confused today Medications: Reviewed: Yes Vitals/I&O/Wt Last Vital Signs Temp 98.2 F 03/31/21 16:00 Pulse 77 03/31/21 16:24 Resp 18 03/31/21 16:19 BP 129/76 03/31/21 16:00 Pulse Ox 92 03/31/21 16:19 Physical Exam Narrative: EXAM NARRATIVE: flush, warm, acutely ill appearing H: Reg S1/S2 no loud murmur L: very diminished poor air movement with bibasilar crackles A: soft NT/ND nl BS E: no C/E/E Data : 03/31/21 06:05 03/31/21 06:05 A&P Assessment and plan (1) COVID-19: Pt appears worse still on 100% FIO2. I have called the 2 numbers in demographics and asked floor which number to call. I was given a slighly different number for [facility] at [phone] . ALL 3 numbers without ability to leave message and no answer. I wanted to give family an update. Unfortunately pt is not doing well and I am concerned about ability to recover. Continue supportive care remdesivir and decadron Day 4 on HHF was trying to keep dry,but needs fluids Inflammatory markers 2 days ago. will repeat D dimer nl at .56 ferritin 1237 (30-400) CRP 11.3 (<5) lactate nl at 2.2 procal nl at 0.09 - indicative of no other infection Status: Acute (2) Hypoxia: HHF unable to take deep breaths Status: Acute (3) Shortness of breath: symptomatic treatment Status: Acute (4) Extremity pain: takes ultram at home no complaints since first 24 hr Status: Acute (5) DNR no code (do not resuscitate): see below Status: Acute (6) DNR (do not resuscitate) discussion: discussed pt wishes if pt had catastrophic event requiring mechanical intubation or CPR or cardiac shock. Pt states I wouldn't want anything done I lived a good life He told me about the land he lives on and how many houses he had and is proud of his life. Status: Acute (7) Hyponatremia with decreased serum osmolality: was trying to keep dry. gentle hydration Status: Acute Attestations Medical Necessity Statement*: critically ill with severe respiratory failure f rom COVID 19 requiring high flow oxygen. Coding Level of Care Code Acute Student Specialist for [facility] Fwd Diagnoses COVID-19 U07.1 Hypoxia R09.02 Shortness of breath R06.02 Extremity pain M79.609 DNR no code (do not resuscitate) Z66 DNR (do not resuscitate) discussion Z71.89 Hyponatremia with decreased serum osmolality E87.1
[2021-03-31] MEDS: pramipexole 0.25 mg Tablet 0.125 MG PO (21:53)
[2021-03-31] MEDS: atorvastatin 40 mg Tablet 80 MG PO ×2 (21:53)
[2021-04-01] VITALS (12 sets, daily range): BP systolic 112–141; BP diastolic 56–95; PULSE 67–84; RESP 16–24; TEMP 36.4–36.9; O2SAT 15–97
[2021-04-01] MEDS: acetaminophen 325 mg Tablet 650 MG PO ×2 (00:49→16:15)
[2021-04-01] MEDS: TRAMadol 50 mg Tablet PO ×3 (00:49→22:21)
[2021-04-01] MEDS: ipratropium-albuterol 3 mL Neb INHALATION ×4 (03:25→20:14)
[2021-04-01] MEDS: enoxaparin 40 mg/0.4 mL Syringe SUBCUT (05:32)
[2021-04-01 06:16] LABS: Basophils % 0.1 %; Eosinophils % 0.1 %; Hematocrit 39.7 % (42.0-52.0); Hemoglobin 12.9 g/dL (11.7-16.6); Lymphocytes # 0.7 10^3/uL (0.8-4.8); Lymphocytes % 6.8 %; Mean Corpuscular HGB Conc 32.5 g/dL (30.0-36.0); Mean Corpuscular Hemoglobin 26.3 pg (28.0-34.0); Monocytes # 0.4 10^3/uL (0.2-0.9); Neutrophils # 9.25 10^3/uL (1.8-7.7); Neutrophils % 87.7 %; Nucleated Red Blood Cells % 0 %; Platelet Count 223 10^3/cmm (130-400); Red Cell Distribution Width 16.3 % (12.1-15.1); White Blood Count 10.6 10^3/uL (4.0-10.0)
[2021-04-01 06:47] LABS: D Dimer 0.66 ug/mIFEU (0-0.59)
[2021-04-01 06:50] LABS: Alanine Aminotransferase 33 U/L (0-41); Albumin Level 3.1 g/dL (3.5-5.2); Alkaline Phosphatase 95 IU/L (40-130); Aspartate Amino Transferase 27 U/L (0-40); Blood Urea Nitrogen 19 mg/dL (8-23); Calcium 7.9 mg/dL (8.5-10.5); Carbon Dioxide 25 mmol/L (22-29); Chloride 94 mmol/L (98-107); Globulin 2.5 g/dL (1.3-4.6); Glucose 111 mg/dL (65-115); Osmolality Calculated 275 mOsm/kg (285-295); Sodium 131 mmol/L (136-145); Total Bilirubin 1.1 mg/dL (0.15-1.2); Total Protein 5.6 g/dL (6.6-8.7)
[2021-04-01 07:04] LABS: NT Pro B Type Natriuretic Pept 209 pg/mL (0-450); Procalcitonin 0.09 ng/mL (0-0.5)
[2021-04-01 07:14] LABS: C Reactive Protein 17.7 mg/L (0.0-4.9); Ferritin 979 ng/mL (30-400); Magnesium 2.1 mg/dL (1.7-2.3); Phosphorus 3.5 mg/dL (2.5-4.5)
[2021-04-01] MEDS: dexamethasone 4 mg/mL INJ 6 MG IVP (09:40)
[2021-04-01] MEDS: docusate sodium 100 mg Capsule PO ×2 (09:41→17:28)
[2021-04-01] MEDS: pantoprazole DR 40 mg Tablet PO (09:41)
[2021-04-01] MEDS: losartan 50 mg Tablet 100 MG PO (09:41)
[2021-04-01] MEDS: duloxetine 20 mg Capsule PO (09:41)
--- NOTE | 2021-04-01 14:12 | P.PN_ITS ---
Subjective Subjective: Interval history: He is not feeling very well. Malaised. Having some lower back pain. Vitals/I&O/Wt Last Vital Signs Temp 97.7 F 04/01/21 08:00 Pulse 78 04/01/21 12:34 Resp 24 H 04/01/21 12:34 BP 126/57 04/01/21 09:41 Pulse Ox 89 L 04/01/21 12:34 03/31/21 04/01/21 04/01/21 22:59 06:59 14:59 Intake Total 360 / 360 200 / 560 90 / 90 Output Total 2700 / 2700 Balance 360 / 360 -2500 / -2140 90 / 90 Physical Exam Const: COMMON NORMALS: no acute distress and patient oriented x3 GENERAL APPEARANCE: ill appearing and frail appearing ORIENTATION/CONSCIOUSNESS: Yes awake HENMT: COMMON NORMALS: oropharynx normal Neck/C-Spine: COMMON NORMALS: no JVD Resp: COMMON NORMALS: normal respiratory effort and clear to auscultation bilaterally AUSCULTATION: clear to auscultation bilaterally Cardio: COMMON NORMALS: no JVD, regular rhythm, S1 normal heart sound present, S2 normal heart sound present and No murmurs present (Cardio) RHYTHM: regular rhythm HEART SOUNDS: S1 normal heart sound present and S2 normal heart sound present GI: COMMON NORMALS: Normal to inspection, nondistended, normoactive bowel sounds present, Soft to palpation and non-tender PALPATION: Yes Soft to palpation Extremity: COMMON NORMALS: no joint enlargement and no pedal edema Neuro: COMMON NORMALS: patient oriented x3 and moves all extremities Skin: COMMON NORMALS: no rashes or lesions noted GENERAL SKIN EXAM: no rashes or lesions noted Data : 04/01/21 05:00 04/01/21 05:00 A&P Assessment and plan (1) COVID-19: Up to 100% FiO2 requirement. Saturating 89%. BiPAP could be additional step, but would not want intubation, mechanical ventilation. Discussed with his daughter today as well, and she is aware of his wishes. Discussed his condition with her. Discussed with him and with her consideration of additional treatment with tocilizumab. They would be agreeable if this was available. We will look into to see if he may be a candidate and as there has been shortage. Continue Decadron. Continue prophylactic Lovenox. So far no suggestion of superimposed bacterial infection. Repeat chest x-ray. Status: Acute (2) Hypoxia: As above. Incentive spirometry. Status: Acute (3) Shortness of breath: Status: Acute (4) Extremity pain: Continue Ultram. Status: Acute (5) DNR no code (do not resuscitate): see below Status: Acute (6) DNR (do not resuscitate) discussion: Status: Acute (7) Hyponatremia with decreased serum osmolality: Improved. Status: Acute Attestations Medical Necessity Statement*: Continue admission for hypoxic respiratory failure with severe COVID-19. Coding Level of Care Code Acute Contact Center Associate for [facility] Fwd Diagnoses COVID-19 U07.1 Hypoxia R09.02 Shortness of breath R06.02 Extremity pain M79.609 DNR no code (do not resuscitate) Z66 DNR (do not resuscitate) discussion Z71.89 Hyponatremia with decreased serum osmolality E87.1
[2021-04-01] MEDS: ondansetron 2 mg/ML SDV 2 mL 4 MG IVP (18:13)
[2021-04-01] MEDS: atorvastatin 40 mg Tablet 80 MG PO ×2 (21:17→21:18)
[2021-04-01] MEDS: pramipexole 0.25 mg Tablet 0.125 MG PO (21:18)
[2021-04-02] VITALS (36 sets, daily range): BP systolic 90–149; BP diastolic 38–81; PULSE 62–87; RESP 6–31; TEMP 36.3–36.6; O2SAT 84–98
[2021-04-02] MEDS: ipratropium-albuterol 3 mL Neb INHALATION ×4 (03:35→21:22)
[2021-04-02] MEDS: enoxaparin 40 mg/0.4 mL Syringe SUBCUT (05:39)
--- NOTE | 2021-04-02 06:00 | XRR_ITS ---
PROCEDURE INFORMATION: Exam: XR Chest Exam date and time: 04/02/2021 6:00 AM Age: 86 years old Clinical indication: Dyspnea; Additional info: Hypoxia TECHNIQUE: Imaging protocol: XR of the chest. Views: 1 view. COMPARISON: CR XR chest 1V portable [id number] 03/26/2021 8:04 AM FINDINGS: Lungs: Interstitial prominence and worsening asymmetric bilateral airspace disease. Pleural spaces: No significant pleural effusion. Heart/Mediastinum: No cardiomegaly. Bones/joints: Degenerative change. XR/XR chest 1V portable [id number] IMPRESSION: Interstitial prominence and worsening asymmetric bilateral airspace disease.
[2021-04-02 07:16] LABS: Basophils % 0.2 %; Eosinophils % 0.3 %; Hemoglobin 13.4 g/dL (11.7-16.6); Lymphocytes # 0.5 10^3/uL (0.8-4.8); Lymphocytes % 4.1 %; Mean Corpuscular HGB Conc 32.7 g/dL (30.0-36.0); Mean Corpuscular Hemoglobin 26.2 pg (28.0-34.0); Mean Corpuscular Volume 80.2 fL (80-94); Mean Platelet Volume 8.7 fL (7.4-10.4); Monocytes # 0.4 10^3/uL (0.2-0.9); Monocytes % 3.2 %; Neutrophils # 10.84 10^3/uL (1.8-7.7); Neutrophils % 90.6 %; Nucleated Red Blood Cells % 0 %; Platelet Count 258 10^3/cmm (130-400); Red Blood Count 5.11 10^6/uL (4.1-5.3); Red Cell Distribution Width 16.3 % (12.1-15.1)
[2021-04-02 07:26] LABS: D Dimer 0.71 ug/mIFEU (0-0.59)
[2021-04-02 07:30] LABS: C Reactive Protein 75.5 mg/L (0.0-4.9)
[2021-04-02 07:31] LABS: Alanine Aminotransferase 30 U/L (0-41); Albumin Level 3.2 g/dL (3.5-5.2); Alkaline Phosphatase 93 IU/L (40-130); Anion Gap 16.5 (5-19); Aspartate Amino Transferase 20 U/L (0-40); Blood Urea Nitrogen 17 mg/dL (8-23); Calcium 8.2 mg/dL (8.5-10.5); Carbon Dioxide 26 mmol/L (22-29); Chloride 94 mmol/L (98-107); Globulin 2.7 g/dL (1.3-4.6); Glucose 103 mg/dL (65-115); Osmolality Calculated 276 mOsm/kg (285-295); Potassium 4.5 mmol/L (3.5-5.1); Sodium 132 mmol/L (136-145); Total Bilirubin 1.1 mg/dL (0.15-1.2); Total Protein 5.9 g/dL (6.6-8.7)
[2021-04-02] MEDS: dexamethasone 4 mg/mL INJ 6 MG IVP (09:04)
[2021-04-02] MEDS: docusate sodium 100 mg Capsule PO ×2 (09:04→18:01)
[2021-04-02] MEDS: losartan 50 mg Tablet 100 MG PO (09:05)
[2021-04-02] MEDS: duloxetine 20 mg Capsule PO (09:05)
[2021-04-02] MEDS: pantoprazole DR 40 mg Tablet PO (09:05)
--- NOTE | 2021-04-02 09:51 | PC.CHAP ---
Pastoral Care Encounter/Spiritual Assessment Type of Contact [] Declined parts sales associate visit [] Patient/Family/Request visit [] Outpatient visit [] Follow-up visit [] Physician referral [] Code/Alert [x] Routine visit [] Staff referral [] Actively dying [] Patient sleeping [] Family support [] [] Out of room [] Palliative care [] [] Receiving care in room [] Pre-surgical visit [] Trauma [] Long length of stay [] ICU visit [x] Other: covid Relational/Emotional Strength [] Patient feels connected with others/family/visitors/staff [] Distress [] Loneliness/isolation [] Abandonment Spirituality of Patient [] Person of Marina [] Attends Scientologist of their [place] [] Believes in Prayer [] Reads Bible or Latter-Day materials [] There are Spiritual issues to be addressed Highway Patrol Commander Interventions [x] Prayer [] Active listening [] Non-anxious presence [] Spiritual/emotional support [] Crisis/trauma care [] Spiritual counseling [] Bereavement support [] Provided bereavement packet [] Provided Bible/devotional materials [] Provided toy/stuffed animal, coloring book to patient or family member [] Provided Communion [] Anointing/[place] [] Salvation [x] Completed spiritual assessment [] Other: Impact on Illness or Injury [] Angry [] Fearful [] Anxious [] Often cries [] Exhaustion [] Unable to work [] Unable to attend gnosticist [] Unable to walk/stand [] Unable to read [] Unable to drive [] Unable to eat/drink [] Unable to sleep [] Unable to be with family [] Patient intubated [] Other: Summary Time spent with patient
--- NOTE | 2021-04-02 13:22 | PC.SOCIAL ---
IMM update IMM not updated as patient isn't expected to dc in the next 48 hours.
--- NOTE | 2021-04-02 15:48 | PM.PN ---
Subjective Subjective: Interval history: He is feeling little bit better today. Denies chest pain or pressure. Feeling less malaised. Denies nausea vomiting or diarrhea. Vitals/I&O/Wt Last Vital Signs Temp 97.9 F 04/02/21 12:00 Pulse 67 04/02/21 15:04 Resp 18 04/02/21 15:04 BP 122/55 04/02/21 12:00 Pulse Ox 91 04/02/21 15:04 04/02/21 04/02/21 04/02/21 06:59 14:59 22:59 Intake Total 360 / 1010 120 / 120 Output Total 500 / 800 Balance -140 / 210 120 / 120 Physical Exam Const: COMMON NORMALS: no acute distress and patient oriented x3 GENERAL APPEARANCE: ill appearing and frail appearing ORIENTATION/CONSCIOUSNESS: Yes awake HENMT: COMMON NORMALS: oropharynx normal Neck/C-Spine: COMMON NORMALS: no JVD Resp: COMMON NORMALS: normal respiratory effort and clear to auscultation bilaterally AUSCULTATION: clear to auscultation bilaterally Cardio: COMMON NORMALS: no JVD, regular rhythm, S1 normal heart sound present, S2 normal heart sound present and No murmurs present (Cardio) RHYTHM: regular rhythm HEART SOUNDS: S1 normal heart sound present and S2 normal heart sound present GI: COMMON NORMALS: Normal to inspection, nondistended, normoactive bowel sounds present, Soft to palpation and non-tender PALPATION: Yes Soft to palpation Extremity: COMMON NORMALS: no joint enlargement and no pedal edema Neuro: COMMON NORMALS: patient oriented x3 and moves all extremities Skin: COMMON NORMALS: no rashes or lesions noted GENERAL SKIN EXAM: no rashes or lesions noted Data : 04/02/21 06:24 04/02/21 06:24 A&P Assessment and plan (1) COVID-19: Today with some improvement in FiO2 requirement, heated high flow down to 80%. Subjectively he is feeling little bit better. Continue Decadron at this time. We will extend remdesivir course with additional 5 days. Continue Decadron. Continue prophylactic Lovenox. There is some rise in leukocytosis, WBC count up to 12. There is some asymmetric bilateral airspace disease with worsening today noted on chest x-ray. Will request sputum culture. Urine bacterial antigens. MRSA PCR. Will additionally add antibiotic coverage empirically with Levaquin. Discussed with his daughter. Continue incentive spirometer. Status: Acute (2) Hypoxia: As above. Status: Acute (3) Shortness of breath: Status: Acute (4) Extremity pain: Continue Ultram. Status: Acute (5) DNR no code (do not resuscitate): see below Status: Acute (6) DNR (do not resuscitate) discussion: Status: Acute (7) Hyponatremia with decreased serum osmolality: Improved. Status: Acute Attestations Medical Necessity Statement*: Continue admission for assessment management of severe COVID-19 with respiratory failure, possible superimposed bacterial infection. Coding Level of Care Code Acute Protective Signal Installer for [facility] Fwd Diagnoses COVID-19 U07.1 Hypoxia R09.02 Shortness of breath R06.02 Extremity pain M79.609 DNR no code (do not resuscitate) Z66 DNR (do not resuscitate) discussion Z71.89 Hyponatremia with decreased serum osmolality E87.1
[2021-04-02] MEDS: levoFLOXacin 750 mg Tablet PO (16:48)
[2021-04-02] MEDS: remdesivir 100 MG in sodium chloride 0.9% (100 ml) 100 ML IV (18:01)
[2021-04-02] MEDS: pramipexole 0.25 mg Tablet 0.125 MG PO (21:50)
[2021-04-02] MEDS: atorvastatin 40 mg Tablet 80 MG PO ×2 (21:50)
[2021-04-02] MEDS: TRAMadol 50 mg Tablet PO (21:50)
[2021-04-03] VITALS (22 sets, daily range): BP systolic 90–139; BP diastolic 45–80; PULSE 67–97; RESP 16–26; TEMP 36.2–36.8; O2SAT 86–93
[2021-04-03] MEDS: ipratropium-albuterol 3 mL Neb INHALATION ×4 (02:48→20:41)
[2021-04-03] MEDS: enoxaparin 40 mg/0.4 mL Syringe SUBCUT (05:00)
--- NOTE | 2021-04-03 06:00 | XR_ITS ---
WS: [id number] Portable AP upright chest, 04/03/2021 Clinical Data: Hypoxia Comparison: Portable chest, 04/02/2021. Findings: The patchy bilateral pulmonary opacities remain the same. There is more opacity on the left than the right. The heart size is the same. There is leads on the chest wall. XR/XR chest 1V portable [id number] Impression: No change in patchy bilateral pulmonary opacities consistent with pneumonia.
[2021-04-03 07:43] LABS: Basophils % 0.3 %; Eosinophils # 0.1 10^3/uL (0.0-0.8); Eosinophils % 0.4 %; Hematocrit 42.2 % (42.0-52.0); Hemoglobin 13.5 g/dL (11.7-16.6); Lymphocytes # 0.4 10^3/uL (0.8-4.8); Lymphocytes % 3.2 %; Mean Corpuscular Hemoglobin 26.1 pg (28.0-34.0); Mean Corpuscular Volume 81.6 fL (80-94); Monocytes # 0.4 10^3/uL (0.2-0.9); Monocytes % 3.7 %; Neutrophils # 10.67 10^3/uL (1.8-7.7); Neutrophils % 90.8 %; Nucleated Red Blood Cells % 0 %; Platelet Count 260 10^3/cmm (130-400); Red Blood Count 5.17 10^6/uL (4.1-5.3); Red Cell Distribution Width 16.3 % (12.1-15.1); White Blood Count 11.8 10^3/uL (4.0-10.0)
[2021-04-03 07:58] LABS: D Dimer 0.95 ug/mIFEU (0-0.59)
[2021-04-03] MEDS: ondansetron 2 mg/ML SDV 2 mL 4 MG IVP (08:13)
[2021-04-03 08:14] LABS: Alanine Aminotransferase 29 U/L (0-41); Albumin Level 2.6 g/dL (3.5-5.2); Alkaline Phosphatase 95 IU/L (40-130); Anion Gap 15.8 (5-19); Aspartate Amino Transferase 24 U/L (0-40); Blood Urea Nitrogen 24 mg/dL (8-23); C Reactive Protein 101.1 mg/L (0.0-4.9); Calcium 8.4 mg/dL (8.5-10.5); Carbon Dioxide 22 mmol/L (22-29); Chloride 97 mmol/L (98-107); Globulin 3.7 g/dL (1.3-4.6); Glucose 106 mg/dL (65-115); Osmolality Calculated 274 mOsm/kg (285-295); Potassium 4.8 mmol/L (3.5-5.1); Sodium 130 mmol/L (136-145); Total Bilirubin 0.9 mg/dL (0.15-1.2); Total Protein 6.3 g/dL (6.6-8.7)
[2021-04-03] MEDS: dexamethasone 4 mg/mL INJ 6 MG IVP (08:48)
[2021-04-03] MEDS: losartan 50 mg Tablet 100 MG PO (09:04)
[2021-04-03] MEDS: duloxetine 20 mg Capsule PO (09:04)
[2021-04-03] MEDS: docusate sodium 100 mg Capsule PO ×2 (09:04→15:40)
[2021-04-03] MEDS: pantoprazole DR 40 mg Tablet PO (09:06)
--- NOTE | 2021-04-03 09:59 | PC.CHAP ---
Pastoral Care Encounter/Spiritual Assessment Type of Contact [] Declined demolition hammer operator visit [] Patient/Family/Request visit [] Outpatient visit [] Follow-up visit [] Physician referral [] Code/Alert [x] Routine visit [] Staff referral [] Actively dying [] Patient sleeping [] Family support [] [] Out of room [] Palliative care [] [] Receiving care in room [] Pre-surgical visit [] Trauma [] Long length of stay [] ICU visit [x] Other:covid Relational/Emotional Strength [] Patient feels connected with others/family/visitors/staff [] Distress [] Loneliness/isolation [] Abandonment Spirituality of Patient [] Person of Marina [] Attends Synagogue of their [place] [] Believes in Prayer [] Reads Bible or Uatsdin materials [] There are Spiritual issues to be addressed Generating Plant Superintendent Interventions [x] Prayer [] Active listening [] Non-anxious presence [] Spiritual/emotional support [] Crisis/trauma care [] Spiritual counseling [] Bereavement support [] Provided bereavement packet [] Provided Bible/devotional materials [] Provided toy/stuffed animal, coloring book to patient or family member [] Provided Communion [] Anointing/[place] [] Salvation [x] Completed spiritual assessment [] Other: Impact on Illness or Injury [] Angry [] Fearful [] Anxious [] Often cries [] Exhaustion [] Unable to work [] Unable to attend yazidism [] Unable to walk/stand [] Unable to read [] Unable to drive [] Unable to eat/drink [] Unable to sleep [] Unable to be with family [] Patient intubated [] Other: Summary Time spent with patient
--- NOTE | 2021-04-03 10:08 | PC.NURSE ---
Pts daughter, Tasha Riggs called for update. verbal okay from patient to update her.
[2021-04-03] MEDS: TRAMadol 50 mg Tablet PO ×2 (14:36→22:36)
[2021-04-03] MEDS: levoFLOXacin 750 mg Tablet PO (15:40)
[2021-04-03] MEDS: remdesivir 100 MG in sodium chloride 0.9% (100 ml) 100 ML IV (17:25)
--- NOTE | 2021-04-03 17:51 | P.PN_ITS ---
Subjective Subjective: Interval history: He is overall not feeling very well. He did not enjoy BiPAP, although appears to do better on it. Discussed with him escalation of care if needed. He wants to continue remdesivir, Decadron. Does not want intubation or mechanical ventilation in case of respiratory decline. Vitals/I&O/Wt Last Vital Signs Temp 97.5 F L 04/03/21 16:00 Pulse 86 04/03/21 16:00 Resp 17 04/03/21 16:00 BP 90/60 04/03/21 16:00 Pulse Ox 91 04/03/21 16:00 04/03/21 04/03/21 04/03/21 06:59 14:59 22:59 Output Total 300 / 300 500 / 500 Balance -300 / 280 -500 / -500 Physical Exam Const: COMMON NORMALS: no acute distress and patient oriented x3 GENERAL APPEARANCE: ill appearing and frail appearing ORIENTATION/CONSCIOUSNESS: Yes awake HENMT: COMMON NORMALS: oropharynx normal Neck/C-Spine: COMMON NORMALS: no JVD Resp: COMMON NORMALS: normal respiratory effort and clear to auscultation bilaterally AUSCULTATION: clear to auscultation bilaterally Cardio: COMMON NORMALS: no JVD, regular rhythm, S1 normal heart sound present, S2 normal heart sound present and No murmurs present (Cardio) RHYTHM: regular rhythm HEART SOUNDS: S1 normal heart sound present and S2 normal heart sound present GI: COMMON NORMALS: Normal to inspection, nondistended, normoactive bowel sounds present, Soft to palpation and non-tender PALPATION: Yes Soft to palpation Extremity: COMMON NORMALS: no joint enlargement and no pedal edema Neuro: COMMON NORMALS: patient oriented x3 and moves all extremities Skin: COMMON NORMALS: no rashes or lesions noted GENERAL SKIN EXAM: no mariluz hes or lesions noted Data : 04/03/21 07:07 04/03/21 07:07 A&P Assessment and plan (1) COVID-19: Worsened FiO2 requirement, although better on BiPAP. Prefers HHF. Continue as tolerating. BiPAP as needed. Would not want intubation or mechanical ventilation. Remdesivir extended. Continue Decadron. Continue prophylactic Lovenox. There is some rise in leukocytosis, WBC count up to 12. There is some asymmetric bilateral airspace disease with worsening today noted on chest x-ray. Sputum culture, urine bacterial antigens, MRSA PCR pending. Continue empiric antibiotic coverage with Levaquin. Continue incentive spirometer. Discussed with his daughter. Status: Acute (2) Hypoxia: As above. Status: Acute (3) Shortness of breath: Status: Acute (4) Extremity pain: Continue Ultram. Status: Acute (5) DNR no code (do not resuscitate): see below Status: Acute (6) Hyponatremia with decreased serum osmolality: Improved. Status: Acute Attestations Medical Necessity Statement*: Continue admission for assessment management of hypoxic respiratory failure with severe COVID-19. Coding Level of Care Code Acute Program Facilitator for [facility] Fwd Exam Comprehensive Diagnoses COVID-19 U07.1 Hypoxia R09.02 Shortness of breath R06.02 Extremity pain M79.609 DNR no code (do not resuscitate) Z66 Hyponatremia with decreased serum osmolality E87.1
[2021-04-03] MEDS: pramipexole 0.25 mg Tablet 0.125 MG PO (22:36)
[2021-04-03] MEDS: atorvastatin 40 mg Tablet 80 MG PO (22:37)
[2021-04-04] VITALS (32 sets, daily range): BP systolic 95–147; BP diastolic 50–94; PULSE 55–92; RESP 16–29; TEMP 36.7–36.8; O2SAT 82–96
[2021-04-04] MEDS: ipratropium-albuterol 3 mL Neb INHALATION ×4 (03:02→21:21)
[2021-04-04] MEDS: enoxaparin 40 mg/0.4 mL Syringe SUBCUT (06:24)
[2021-04-04 07:27] LABS: Basophils % 0.1 %; Eosinophils % 0.3 %; Hematocrit 39.8 % (42.0-52.0); Lymphocytes # 0.3 10^3/uL (0.8-4.8); Lymphocytes % 2.6 %; Mean Corpuscular HGB Conc 32.7 g/dL (30.0-36.0); Mean Corpuscular Hemoglobin 26.3 pg (28.0-34.0); Mean Corpuscular Volume 80.4 fL (80-94); Mean Platelet Volume 9.5 fL (7.4-10.4); Monocytes # 0.5 10^3/uL (0.2-0.9); Monocytes % 3.9 %; Neutrophils # 10.57 10^3/uL (1.8-7.7); Nucleated Red Blood Cells % 0 %; Platelet Count 266 10^3/cmm (130-400); Red Blood Count 4.95 10^6/uL (4.1-5.3); Red Cell Distribution Width 16.3 % (12.1-15.1); White Blood Count 11.5 10^3/uL (4.0-10.0)
[2021-04-04 07:59] LABS: Alanine Aminotransferase 24 U/L (0-41); Albumin Level 2.9 g/dL (3.5-5.2); Alkaline Phosphatase 94 IU/L (40-130); Anion Gap 17.7 (5-19); Aspartate Amino Transferase 19 U/L (0-40); Blood Urea Nitrogen 24 mg/dL (8-23); Calcium 8.3 mg/dL (8.5-10.5); Carbon Dioxide 24 mmol/L (22-29); Chloride 93 mmol/L (98-107); Globulin 3.2 g/dL (1.3-4.6); Glucose 109 mg/dL (65-115); Osmolality Calculated 275 mOsm/kg (285-295); Potassium 4.7 mmol/L (3.5-5.1); Sodium 130 mmol/L (136-145); Total Bilirubin 0.6 mg/dL (0.15-1.2); Total Protein 6.1 g/dL (6.6-8.7)
[2021-04-04] MEDS: pantoprazole DR 40 mg Tablet PO (08:29)
[2021-04-04] MEDS: duloxetine 20 mg Capsule PO (08:29)
[2021-04-04] MEDS: docusate sodium 100 mg Capsule PO ×2 (08:29→16:43)
[2021-04-04] MEDS: acetaminophen 325 mg Tablet 650 MG PO ×2 (08:33→16:43)
--- NOTE | 2021-04-04 09:55 | PC.CHAP ---
Pastoral Care Encounter/Spiritual Assessment Type of Contact [] Declined railroad car truck builder visit [] Patient/Family/Request visit [] Outpatient visit [] Follow-up visit [] Physician referral [] Code/Alert [x] Routine visit [] Staff referral [] Actively dying [] Patient sleeping [] Family support [] [] Out of room [] Palliative care [] [] Receiving care in room [] Pre-surgical visit [] Trauma [] Long length of stay [] ICU visit [x] Other: covid Relational/Emotional Strength [] Patient feels connected with others/family/visitors/staff [] Distress [] Loneliness/isolation [] Abandonment Spirituality of Patient [] Person of Marina [] Attends Sabianism of their [place] [] Believes in Prayer [] Reads Bible or Islam materials [] There are Spiritual issues to be addressed Accounting Practice Manager Interventions [x] Prayer [] Active listening [] Non-anxious presence [] Spiritual/emotional support [] Crisis/trauma care [] Spiritual counseling [] Bereavement support [] Provided bereavement packet [] Provided Bible/devotional materials [] Provided toy/stuffed animal, coloring book to patient or family member [] Provided Communion [] Anointing/[place] [] Salvation [x] Completed spiritual assessment [] Other: Impact on Illness or Injury [] Angry [] Fearful [] Anxious [] Often cries [] Exhaustion [] Unable to work [] Unable to attend moravian [] Unable to walk/stand [] Unable to read [] Unable to drive [] Unable to eat/drink [] Unable to sleep [] Unable to be with family [] Patient intubated [] Other: Summary Time spent with patient
--- NOTE | 2021-04-04 10:15 | PC.SOCIAL ---
IMM Updated Updated pt's family on Pg 2 IMM via phone. No questions voiced. Provided a copy to pt care nurse to give to pt. Initialed, dated, & timed copy in chart.
[2021-04-04] MEDS: dexamethasone 4 mg/mL INJ 6 MG IVP (10:18)
[2021-04-04] MEDS: TRAMadol 50 mg Tablet PO ×2 (11:42→18:40)
--- NOTE | 2021-04-04 15:31 | P.PN_ITS ---
Subjective Subjective: Interval history: Overall not feeling very well. Weak, achy. Lower back bothering him. Vitals/I&O/Wt Last Vital Signs Temp 98.2 F 04/04/21 12:00 Pulse 82 04/04/21 14:21 Resp 20 H 04/04/21 14:21 BP 95/56 04/04/21 12:00 Pulse Ox 93 04/04/21 14:22 04/04/21 04/04/21 04/04/21 06:59 14:59 22:59 Output Total 300 / 800 Balance -300 / -460 Physical Exam Const: COMMON NORMALS: no acute distress, patient oriented x3 and alert GENERAL APPEARANCE: frail appearing ORIENTATION/CONSCIOUSNESS: Yes awake HENMT: COMMON NORMALS: oropharynx normal Neck/C-Spine: COMMON NORMALS: no JVD Resp: COMMON NORMALS: normal respiratory effort and clear to auscultation bilaterally AUSCULTATION: clear to auscultation bilaterally Cardio: COMMON NORMALS: no JVD, regular rhythm, S1 normal heart sound present, S2 normal heart sound present and No murmurs present (Cardio) RHYTHM: regular rhythm HEART SOUNDS: S1 normal heart sound present and S2 normal heart sound present GI: COMMON NORMALS: Normal to inspection, nondistended, normoactive bowel sounds present, Soft to palpation and non-tender PALPATION: Yes Soft to palpation Extremity: COMMON NORMALS: no joint enlargement and no pedal edema Neuro: COMMON NORMALS: patient oriented x3 and moves all extremities SENSORIUM/ORIENTATION: Yes alert Skin: COMMON NORMALS: no rashes or lesions noted GENERAL SKIN EXAM: no rashes or lesions noted Data : 04/04/21 06:00 04/04/21 06:00 Micro: Microbiology 04/03/21 04:45 MRSA Culture - Final Nose 04/03/21 05:00 Gram Stain - Final Sputum - Expectorated Sputum Sputum Culture - Preliminary 04/02/21 22:05 Legionella Urinary Antigen - Final Urine,Voided Bacterial Antigens - Final A&P Assessment and plan (1) COVID-19: He continues on high flow cannula. Discussed with him again breathing in through the nose. FiO2 requirement fluctuating somewhat. Currently appears to be transiently doing little bit better, turned down to 85%. Discussed with him again goals of care, CODE STATUS together with his nurse. He wants to continue currently available treatments. He wants to continue support with high flow cannula, BiPAP. Discussing CODE STATUS again, he would not want mechanical ventilation or intubation. Discussed in case of cardiac arrest consideration of CPR, he states in case needing CPR to avoid it and let him pass away if things get to that point. Remdesivir extended course. Continue Decadron. Continue prophylactic Lovenox. Leukocytosis little bit better down to 11.5. There was asymmetric bilateral airspace disease with worsening today noted on chest x-ray. Sputum culture pending. So far gram-positive cocci in pairs and chains. Few gram-positive rods. Few yeast. Urine bacterial antigens negative, MRSA PCR negative. Continue Levaquin for possible superimposed bacterial pneumonia. Continue incentive spirometer. Flutter valve. Status: Acute (2) Hypoxia: As above. Status: Acute (3) Shortness of breath: Status: Acute (4) Extremity pain: Continue Ultram. Status: Acute (5) DNR no code (do not resuscitate): see below Status: Acute (6) Hyponatremia with decreased serum osmolality: Improved. Status: Acute Additional A&P Information Lower back discomfort: Add lidocaine patch Attestations Medical Necessity Statement*: Continue management of hypoxic respiratory failure secondary to severe COVID-19 Coding Level of Care Code Acute Guidance Consultant for [facility] Diagnoses COVID-19 U07.1 Hypoxia R09.02 Shortness of breath R06.02 Extremity pain M79.609 DNR no code (do not resuscitate) Z66 Hyponatremia with decreased serum osmolality E87.1
[2021-04-04] MEDS: remdesivir 100 MG in sodium chloride 0.9% (100 ml) 100 ML IV (16:43)
[2021-04-04] MEDS: levoFLOXacin 750 mg Tablet PO (16:43)
[2021-04-04] MEDS: pramipexole 0.25 mg Tablet 0.125 MG PO (21:04)
[2021-04-04] MEDS: atorvastatin 40 mg Tablet 80 MG PO (21:05)
[2021-04-05] VITALS (29 sets, daily range): BP systolic 104–136; BP diastolic 55–85; PULSE 59–96; RESP 14–26; TEMP 35.8–36.8; O2SAT 86–100
[2021-04-05] MEDS: ipratropium-albuterol 3 mL Neb INHALATION ×3 (02:39→14:22)
[2021-04-05] MEDS: enoxaparin 40 mg/0.4 mL Syringe SUBCUT (06:33)
[2021-04-05 06:35] LABS: Basophils % 0.1 %; Eosinophils % 0.1 %; Hematocrit 38.8 % (42.0-52.0); Hemoglobin 12.9 g/dL (11.7-16.6); Lymphocytes # 0.3 10^3/uL (0.8-4.8); Lymphocytes % 2.6 %; Mean Corpuscular HGB Conc 33.2 g/dL (30.0-36.0); Mean Corpuscular Hemoglobin 26.6 pg (28.0-34.0); Mean Platelet Volume 9.3 fL (7.4-10.4); Monocytes # 0.5 10^3/uL (0.2-0.9); Monocytes % 4.7 %; Neutrophils % 91.1 %; Nucleated Red Blood Cells % 0 %; Platelet Count 277 10^3/cmm (130-400); Red Blood Count 4.85 10^6/uL (4.1-5.3); Red Cell Distribution Width 16.1 % (12.1-15.1); White Blood Count 10.3 10^3/uL (4.0-10.0)
[2021-04-05 06:57] LABS: D Dimer 0.76 ug/mIFEU (0-0.59)
[2021-04-05 07:06] LABS: Alanine Aminotransferase 20 U/L (0-41); Albumin Level 2.6 g/dL (3.5-5.2); Alkaline Phosphatase 95 IU/L (40-130); Anion Gap 14.7 (5-19); Aspartate Amino Transferase 17 U/L (0-40); Blood Urea Nitrogen 22 mg/dL (8-23); C Reactive Protein 63.6 mg/L (0.0-4.9); Calcium 8.2 mg/dL (8.5-10.5); Carbon Dioxide 22 mmol/L (22-29); Chloride 94 mmol/L (98-107); Globulin 3.2 g/dL (1.3-4.6); Glucose 130 mg/dL (65-115); Osmolality Calculated 267 mOsm/kg (285-295); Potassium 4.7 mmol/L (3.5-5.1); Sodium 126 mmol/L (136-145); Total Bilirubin 0.6 mg/dL (0.15-1.2); Total Protein 5.8 g/dL (6.6-8.7)
--- NOTE | 2021-04-05 08:19 | PC.NURSE ---
Pt did lung excersises. Pulls 500 on IS
[2021-04-05] MEDS: dexamethasone 4 mg/mL INJ 6 MG IVP (10:13)
[2021-04-05] MEDS: losartan 50 mg Tablet 100 MG PO (10:15)
[2021-04-05] MEDS: docusate sodium 100 mg Capsule PO ×2 (10:15→18:23)
[2021-04-05] MEDS: pantoprazole DR 40 mg Tablet PO (10:16)
[2021-04-05] MEDS: duloxetine 20 mg Capsule PO (10:17)
[2021-04-05] MEDS: acetaminophen 325 mg Tablet 650 MG PO (10:17)
[2021-04-05] MEDS: lidocaine 5% Patch 1 PATCH TOPICAL ×2 (10:21→23:18)
--- NOTE | 2021-04-05 13:14 | P.PN_ITS ---
Subjective Subjective: Interval history: He states he got a bit of rest at night. Feels today he is doing a little bit better. Denies chest pain. Some mild intermittent cough. States he is working with incentive spirometer, flutter valve. Vitals/I&O/Wt Last Vital Signs Temp 98.3 F 04/05/21 03:45 Pulse 73 04/05/21 12:00 Resp 18 04/05/21 12:00 BP 104/68 04/05/21 12:00 Pulse Ox 92 04/05/21 12:00 04/04/21 04/05/21 04/05/21 22:59 06:59 14:59 Intake Total 340 / 340 100 / 440 Output Total 700 / 700 200 / 900 Balance -360 / -360 -100 / -460 Physical Exam Const: COMMON NORMALS: no acute distress, patient oriented x3 and alert GENERAL APPEARANCE: cooperative, comfortable and frail appearing ORIE NTATION/CONSCIOUSNESS: Yes awake HENMT: COMMON NORMALS: oropharynx normal Neck/C-Spine: COMMON NORMALS: no JVD Resp: COMMON NORMALS: normal respiratory effort and clear to auscultation bilaterally AUSCULTATION: clear to auscultation bilaterally Cardio: COMMON NORMALS: no JVD, regular rhythm, S1 normal heart sound present, S2 normal heart sound present and No murmurs present (Cardio) RHYTHM: regular rhythm HEART SOUNDS: S1 normal heart sound present and S2 normal heart sound present GI: COMMON NORMALS: Normal to inspection, nondistended, normoactive bowel sounds present, Soft to palpation and non-tender PALPATION: Yes Soft to palpation Extremity: COMMON NORMALS: no joint enlargement and no pedal edema Neuro: COMMON NORMALS: patient oriented x3 and moves all extremities SENSORIUM/ORIENTATION: Yes alert Skin: COMMON NORMALS: no rashes or lesions noted GENERAL SKIN EXAM: no rashes or lesions noted Data : 04/05/21 05:22 04/05/21 05:22 Micro: Microbiology 04/03/21 05:00 Gram Stain - Final Sputum - Expectorated Sputum Sputum Culture - Final 04/03/21 04:45 MRSA Culture - Final Nose A&P Assessment and plan (1) COVID-19: Oxygen requirement appears to be fluctuating. Currently he is up on 100 and FiO2, but saturations in the low to mid 90s. He feels comfortable. Continue remdesivir, extended course of Decadron. He wants to continue treatment. If tolerating, prone positioning. Continue prophylactic Lovenox. Leukocytosis improving. There was asymmetric bilateral airspace disease with worsening today noted on chest x-ray. Sputum culture with heavy mixed upper respiratory gabe. Urine bacterial antigens negative, MRSA PCR negative. Continue Levaquin for possible superimposed bacterial pneumonia. Continue incentive spirometer. Flutter valve. Status: Acute (2) Hypoxia: As above. Status: Acute (3) Shortness of breath: Status: Acute (4) Extremity pain: Continue Ultram. Status: Acute (5) DNR no code (do not resuscitate): see below Status: Acute (6) Hyponatremia with decreased serum osmolality: Improved. Status: Acute Additional A&P Information Lower back discomfort: States lidocaine patch is working. Attestations Medical Necessity Statement*: Continue admission for assessment of management of hypoxic respiratory failure with severe COVID-19. Coding Level of Care Code Acute Online Media Buyer for [facility] Diagnoses COVID-19 U07.1 Hypoxia R09.02 Shortness of breath R06.02 Extremity pain M79.609 DNR no code (do not resuscitate) Z66 Hyponatremia with decreased serum osmolality E87.1
[2021-04-05] MEDS: levoFLOXacin 750 mg Tablet PO (18:22)
[2021-04-05] MEDS: remdesivir 100 MG in sodium chloride 0.9% (100 ml) 100 ML IV (18:23)
[2021-04-05] MEDS: calcium carbonate 500 mg Chew Tablet 1000 MG PO (18:23)
[2021-04-05] MEDS: pramipexole 0.25 mg Tablet 0.125 MG PO (21:24)
[2021-04-05] MEDS: atorvastatin 40 mg Tablet 80 MG PO (21:24)
[2021-04-05] MEDS: TRAMadol 50 mg Tablet PO (21:29)
[2021-04-06] VITALS (13 sets, daily range): BP systolic 108–119; BP diastolic 60–72; PULSE 26–127; RESP 16–100; TEMP 36.1–36.7; O2SAT 82–94
[2021-04-06] MEDS: enoxaparin 40 mg/0.4 mL Syringe SUBCUT (05:33)
[2021-04-06 07:33] LABS: Basophils % 0.1 %; Eosinophils % 0.1 %; Hematocrit 42.5 % (42.0-52.0); Hemoglobin 13.7 g/dL (11.7-16.6); Lymphocytes # 0.4 10^3/uL (0.8-4.8); Lymphocytes % 2.7 %; Mean Corpuscular HGB Conc 32.2 g/dL (30.0-36.0); Mean Corpuscular Hemoglobin 25.8 pg (28.0-34.0); Mean Platelet Volume 9.1 fL (7.4-10.4); Monocytes # 0.9 10^3/uL (0.2-0.9); Monocytes % 5.6 %; Neutrophils # 13.91 10^3/uL (1.8-7.7); Neutrophils % 90.4 %; Nucleated Red Blood Cells % 0 %; Platelet Count 311 10^3/cmm (130-400); Red Blood Count 5.31 10^6/uL (4.1-5.3); Red Cell Distribution Width 16.3 % (12.1-15.1); White Blood Count 15.4 10^3/uL (4.0-10.0)
[2021-04-06] MEDS: losartan 50 mg Tablet 100 MG PO (07:56)
[2021-04-06] MEDS: ondansetron 2 mg/ML SDV 2 mL 4 MG IVP (07:56)
[2021-04-06] MEDS: dexamethasone 4 mg/mL INJ 6 MG IVP (07:56)
[2021-04-06] MEDS: docusate sodium 100 mg Capsule PO ×2 (07:57→16:52)
[2021-04-06] MEDS: duloxetine 20 mg Capsule PO (07:57)
[2021-04-06] MEDS: pantoprazole DR 40 mg Tablet PO (07:57)
[2021-04-06] MEDS: lidocaine 5% Patch 1 PATCH TOPICAL ×2 (07:57→21:25)
[2021-04-06 08:01] LABS: D Dimer 0.81 ug/mIFEU (0-0.59)
[2021-04-06 08:05] LABS: Alanine Aminotransferase 20 U/L (0-41); Albumin Level 2.9 g/dL (3.5-5.2); Alkaline Phosphatase 92 IU/L (40-130); Anion Gap 15.9 (5-19); Aspartate Amino Transferase 17 U/L (0-40); Blood Urea Nitrogen 25 mg/dL (8-23); C Reactive Protein 36.3 mg/L (0.0-4.9); Calcium 8.7 mg/dL (8.5-10.5); Carbon Dioxide 26 mmol/L (22-29); Chloride 95 mmol/L (98-107); Globulin 3.4 g/dL (1.3-4.6); Glucose 94 mg/dL (65-115); Osmolality Calculated 278 mOsm/kg (285-295); Potassium 4.9 mmol/L (3.5-5.1); Sodium 132 mmol/L (136-145); Total Bilirubin 0.6 mg/dL (0.15-1.2); Total Protein 6.3 g/dL (6.6-8.7)
[2021-04-06] MEDS: ipratropium-albuterol 3 mL Neb INHALATION ×5 (08:52→21:18)
--- NOTE | 2021-04-06 11:31 | PC.SOCIAL ---
IMM Update Pg. 2 of IMM updated. Attempted to reach patient's by phone but unable to reach her. Patient not expected to discharge within the next 48hours.
--- NOTE | 2021-04-06 13:54 | PM.PN ---
Subjective Subjective: Interval history: He reports he is doing all right. He has been coughing up some phlegm. He is using flutter valve. Denies chest pain or pressure. No nausea vomiting or diarrhea. Vitals/I&O/Wt Last Vital Signs Temp 97.6 F 04/06/21 12:00 Pulse 127 H 04/06/21 12:01 Resp 26 H 04/06/21 12:01 BP 119/72 04/06/21 12:00 Pulse Ox 92 04/06/21 12:01 04/05/21 04/06/21 04/06/21 22:59 06:59 14:59 Intake Total 220 / 220 240 / 460 Output Total 1100 / 1100 Balance -880 / -880 240 / -640 Physical Exam Const: COMMON NORMALS: no acute distress, patient oriented x3 and alert GENERAL APPEARANCE: cooperative, comfortable and frail appearing ORIENTATION/CONSCIOUSNESS: Yes awake HENMT: COMMON NORMALS: oropharynx normal Neck/C-Spine: COMMON NORMALS: no JVD Resp: COMMON NORMALS: normal respiratory effort and clear to auscultation bilaterally AUSCULTATION: clear to auscultation bilaterally Cardio: COMMON NORMALS: no JVD, regular rhythm, S1 normal heart sound present, S2 normal heart sound present and No murmurs present (Cardio) RHYTHM: regular rhythm HEART SOUNDS: S1 normal heart sound present and S2 normal heart sound present GI: COMMON NORMALS: Normal to inspection, nondistended, normoactive bowel sounds present, Soft to palpation and non-tender PALPATION: Yes Soft to palpation Extremity: COMMON NORMALS: no joint enlargement and no pedal edema Neuro: COMMON NORMALS: patient oriented x3 and moves all extremities SENSORIUM/ORIENTATION: Yes alert Skin: COMMON NORMALS: no rashes or lesions noted GENERAL SKIN EXAM: no rashes or lesions noted Data : 04/06/21 06:50 04/06/21 06:50 Micro: Microbiology 04/03/21 05:00 Gram Stain - Final Sputum - Expectorated Sputum Sputum Culture - Final A&P Assessment and plan (1) COVID-19: Still on 100% high flow cannula, but saturations in low 90s. He is coughing up some phlegm, using flutter valve. We will add Mucinex. Continue remdesivir, extended course of Decadron. He wants to continue treatment. If tolerating, prone positioning. Discussed with him rechecking COVID-19 PCR. He originally reportedly started symptoms around 03/19. As per discussion with his daughter and him, tried also to see if there is anything available with regards to clinical trials at [facility], however, there are no hospital beds available at any of their facilities contacting trials. Discussed with them. Continue prophylactic Lovenox. Sputum culture with heavy mixed upper respiratory gabe. Urine bacterial antigens negative, MRSA PCR negative. Continue Levaquin for possible superimposed bacterial pneumonia. Continue incentive spirometer. Flutter valve. Status: Acute (2) Hypoxia: As above. Status: Acute (3) Shortness of breath: Status: Acute (4) Extremity pain: Continue Ultram. Status: Acute (5) DNR no code (do not resuscitate): see below Status: Acute (6) Hyponatremia with decreased serum osmolality: Improved. Status: Acute Additional A&P Information Lower back discomfort: lidocaine patch. Tramadol as needed. Attestations Medical Necessity Statement*: Continue admission for hypoxic respiratory failure with severe COVID-19. Coding Level of Care Code Acute Mandrel Puller for [facility] Diagnoses COVID-19 U07.1 Hypoxia R09.02 Shortness of breath R06.02 Extremity pain M79.609 DNR no code (do not resuscitate) Z66 Hyponatremia with decreased serum osmolality E87.1
[2021-04-06 15:08] LABS: Magnesium 2.4 mg/dL (1.7-2.3)
--- NOTE | 2021-04-06 15:35 | ECG_ITS ---
[facility] Test Date: 2021-04-06 Pat Name: Ta Portillo Department: Room: 207 Gender: Male Manager Location: : 1935 Requested By: Adan Kaufman Order Number: [id number] Connor MD: Lucho Jimenez M.D. Measurements Intervals [place] Rate: 94 P: 36 ME: 217 QRS: -21 QRSD: 96 T: 23 QT: 337 QTc: 423 Interpretive Statements SINUS RHYTHM WITH FIRST DEGREE AV BLOCK WITH FREQUENT VENTRICULAR PREMATURE COMPLEXES BORDERLINE LEFT AXIS DEVIATION [QRS AXIS < -20] Compared to ECG 03/26/2021 08:04:12 First degree AV block now present Ectopic atrial rhythm no longer present Atrial abnormality no longer present Electronically Signed On 04-07-2021 12:18:04 CDT by Lucho Jimenez M.D. [id number]
[2021-04-06] MEDS: levoFLOXacin 750 mg Tablet PO (16:52)
[2021-04-06] MEDS: remdesivir 100 MG in sodium chloride 0.9% (100 ml) 100 ML IV (16:52)
--- NOTE | 2021-04-06 17:35 | ECG_ITS ---
[facility] Test Date: 2021-04-06 Pat Name: Ta Portillo Department: Room: 207 Gender: Male Seed Cleaning Machine Operator: : 1935 Requested By: Adan Kaufman Order Number: [id number] Reading MD: Lucho Jimenez M.D. Measurements Intervals [place] Rate: 89 P: 30 GA: 218 QRS: -23 QRSD: 100 T: 42 QT: 344 QTc: 420 Interpretive Statements SINUS RHYTHM WITH FIRST DEGREE AV BLOCK WITH FREQUENT VENTRICULAR PREMATURE COMPLEXES BORDERLINE LEFT AXIS DEVIATION [QRS AXIS < -20] Compared to ECG 04/06/2021 16:14:19 No significant changes Electronically Signed On 04-07-2021 12:23:23 CDT by Lucho Jimenez M.D. [email or web address] [email or web address] Biotechst. [facility].[email or web address]/[id number]
[2021-04-06 20:10] LABS: Troponin(5th) Baseline 12 ng/L (0-15)
[2021-04-06] MEDS: pramipexole 0.25 mg Tablet 0.125 MG PO (21:25)
[2021-04-06] MEDS: atorvastatin 40 mg Tablet 80 MG PO (21:25)
--- NOTE | 2021-04-06 21:35 | ECG_ITS ---
[facility] Test Date: 2021-04-07 Pat Name: Ta Portillo Department: Room: 207 Gender: Male Wan Support Specialist: : 1935 Requested By: Adan Kaufman Order Number: [id number] Reading MD: Lucho Jimenez M.D. Measurements Intervals [place] Rate: 79 P: 8 MI: 201 QRS: -27 QRSD: 83 T: 42 QT: 363 QTc: 417 Interpretive Statements SINUS RHYTHM WITH OCCASIONAL ECTOPIC PREMATURE COMPLEXES BORDERLINE LEFT AXIS DEVIATION [QRS AXIS < -20] Compared to ECG 04/06/2021 18:04:22 Ventricular premature complex(es) no longer present First degree AV block no longer present Electronically Signed On 04-07-2021 12:21:27 CDT by Lucho Jimenez M.D. [email or web address] [email or web address] medical [facility] [email or web address]/store/[id number]
[2021-04-06 22:55] LABS: Troponin 5 2HR 9.72 ng/L (0-15)
[2021-04-06 23:06] LABS: Troponin 5 2HR Delta -2.28 ABS# (0-10)
[2021-04-07] VITALS (15 sets, daily range): BP systolic 100–121; BP diastolic 53–71; PULSE 63–130; RESP 20–28; TEMP -13.2–36.7; O2SAT 86–98
[2021-04-07 01:26] LABS: Basophils % 0.2 %; Eosinophils % 0.1 %; Hematocrit 40.1 % (42.0-52.0); Hemoglobin 13.3 g/dL (11.7-16.6); Lymphocytes # 0.4 10^3/uL (0.8-4.8); Lymphocytes % 2.9 %; Mean Corpuscular HGB Conc 33.2 g/dL (30.0-36.0); Mean Corpuscular Hemoglobin 26.4 pg (28.0-34.0); Mean Corpuscular Volume 79.7 fL (80-94); Mean Platelet Volume 8.8 fL (7.4-10.4); Monocytes # 0.8 10^3/uL (0.2-0.9); Monocytes % 5.9 %; Neutrophils # 11.91 10^3/uL (1.8-7.7); Neutrophils % 89.8 %; Nucleated Red Blood Cells % 0 %; Platelet Count 262 10^3/cmm (130-400); Red Blood Count 5.03 10^6/uL (4.1-5.3); Red Cell Distribution Width 16.3 % (12.1-15.1); White Blood Count 13.3 10^3/uL (4.0-10.0)
[2021-04-07 01:33] LABS: D Dimer 0.94 ug/mIFEU (0-0.59)
[2021-04-07 01:39] LABS: Alanine Aminotransferase 18 U/L (0-41); Albumin Level 2.7 g/dL (3.5-5.2); Alkaline Phosphatase 88 IU/L (40-130); Anion Gap 13.8 (5-19); Aspartate Amino Transferase 14 U/L (0-40); Blood Urea Nitrogen 26 mg/dL (8-23); C Reactive Protein 36.8 mg/L (0.0-4.9); Calcium 7.9 mg/dL (8.5-10.5); Carbon Dioxide 26 mmol/L (22-29); Chloride 93 mmol/L (98-107); Globulin 2.5 g/dL (1.3-4.6); Glucose 140 mg/dL (65-115); Osmolality Calculated 273 mOsm/kg (285-295); Potassium 4.8 mmol/L (3.5-5.1); Sodium 128 mmol/L (136-145); Total Bilirubin 0.5 mg/dL (0.15-1.2); Total Protein 5.2 g/dL (6.6-8.7)
[2021-04-07 01:48] LABS: Troponin 5 6HR 9.87 ng/L (0-15); Troponin 5 6HR Delta -2.13 ng/L (0-12)
[2021-04-07] MEDS: ipratropium-albuterol 3 mL Neb INHALATION ×2 (02:00→09:15)
[2021-04-07] MEDS: TRAMadol 50 mg Tablet PO ×3 (02:45→21:29)
[2021-04-07] MEDS: enoxaparin 40 mg/0.4 mL Syringe SUBCUT (06:23)
[2021-04-07] MEDS: lidocaine 5% Patch 1 PATCH TOPICAL ×2 (10:27→21:19)
[2021-04-07] MEDS: duloxetine 20 mg Capsule PO (10:27)
[2021-04-07] MEDS: docusate sodium 100 mg Capsule PO ×2 (10:27→17:21)
[2021-04-07] MEDS: pantoprazole DR 40 mg Tablet PO (10:27)
[2021-04-07] MEDS: ondansetron 2 mg/ML SDV 2 mL 4 MG IVP ×2 (10:27→22:27)
[2021-04-07] MEDS: losartan 50 mg Tablet 100 MG PO (10:27)
[2021-04-07] MEDS: dexamethasone 4 mg/mL INJ 6 MG IVP (10:28)
--- NOTE | 2021-04-07 12:03 | P.PN_ITS ---
Subjective Subjective: Interval history: Feels nauseated today. Has not vomited. No appetite at the moment. Weak, but conversant. Intent on continuing treatments. Asks if we have come across any new medications. Discussed with him regarding attempted contact with [facility]. Unfortunately no beds were available at any of their facilities that are having any clinical trials. Vitals/I&O/Wt Last Vital Signs Temp 97.9 F 04/07/21 08:00 Pulse 82 04/07/21 10:56 Resp 25 H 04/07/21 09:16 BP 102/53 04/07/21 10:27 Pulse Ox 91 04/07/21 10:56 04/06/21 04/07/21 04/07/21 22:59 06:59 14:59 Intake Total 340 / 340 100 / 100 Output Total 400 / 400 Balance 340 / 340 -400 / -60 100 / 100 Physical Exam Const: COMMON NORMALS: no acute distress, patient oriented x3 and alert GENERAL APPEARANCE: cooperative, comfortable and frail appearing ORIENTATION/CONSCIOUSNESS: Yes awake OTHER: Weak, but conversant. HENMT: COMMON NORMALS: oropharynx normal Neck/C-Spine: COMMON NORMALS: no JVD Resp: COMMON NORMALS: normal respiratory effort and clear to auscultation bilaterally AUSCULTATION: clear to auscultation bilaterally Cardio: COMMON NORMALS: no JVD, regular rhythm, S1 normal heart sound present, S2 normal heart sound present and No murmurs present (Cardio) RHYTHM: regular rhythm HEART SOUNDS: S1 normal heart sound present and S2 normal heart sound present GI: COMMON NORMALS: Normal to inspection, nondistended, normoactive bowel sounds present, Soft to palpation and non-tender PALPATION: Yes Soft to p alpation Extremity: COMMON NORMALS: no joint enlargement and no pedal edema Neuro: COMMON NORMALS: patient oriented x3 and moves all extremities SENSORIUM/ORIENTATION: Yes alert Skin: COMMON NORMALS: no rashes or lesions noted GENERAL SKIN EXAM: no rashes or lesions noted Data : 04/07/21 01:15 04/07/21 01:15 A&P Assessment and plan (1) COVID-19: Oxygen requirement fluctuating somewhat. Down to 93% high flow cannula at the time of my visit. Today he is nauseated. Similar in terms of respiratory status, but appears less secretion. Completed last day of extended course of remdesivir today. Continue Decadron. Continue Levaquin for suspected superimposed bacterial pneumonia. Appears to be responding. Inquired again today with [facility] with regards to any openings for enrollment in any possible clinical trial, however, checking again today there has still been no bed openings. Continue Mucinex, flutter valve to help with expectoration. He wants to continue treatment. Discussed with him if tolerating, prone positioning may provide some help with oxygenation, although not today due to nausea. As per discussion we have requested for recheck COVID-19 PCR. He originally reportedly started symptoms around 03/19. In case negative, another test can possibly be done over 24 hours later, and if also negative, perhaps isolation can be discontinued. Could allow visitation from his daughter. Continue prophylactic Lovenox. Sputum culture with heavy mixed upper respiratory gabe. Urine bacterial antigens negative, MRSA PCR negative. Continue Levaquin for possible superimposed bacterial pneumonia. Continue incentive spirometer. Status: Acute (2) Hypoxia: As above. Status: Acute (3) Shortness of breath: Status: Acute (4) Extremity pain: Continue Ultram. Status: Acute (5) DNR no code (do not resuscitate): see below Status: Acute (6) Hyponatremia with decreased serum osmolality: Improved. Status: Acute Additional A&P Information Lower back discomfort: lidocaine patch. Tramadol as needed. Attestations Medical Necessity Statement*: Continue admission for assessment and management of hypoxic respite failure with severe COVID-19, possible superimposed bacterial pneumonia. Coding Level of Care Code Acute Instructor Physical Education for [facility] Diagnoses COVID-19 U07.1 Hypoxia R09.02 Shortness of breath R06.02 Extremity pain M79.609 DNR no code (do not resuscitate) Z66 Hyponatremia with decreased serum osmolality E87.1
[2021-04-07] MEDS: levoFLOXacin 750 mg Tablet PO (15:03)
[2021-04-07] MEDS: guaiFENesin 600 mg Tablet 1200 MG PO (17:21)
[2021-04-07] MEDS: pramipexole 0.25 mg Tablet 0.125 MG PO (21:18)
[2021-04-07] MEDS: atorvastatin 40 mg Tablet 80 MG PO (21:18)
[2021-04-08] VITALS (20 sets, daily range): BP systolic 92–138; BP diastolic 55–73; PULSE 67–96; RESP 14–24; TEMP 36.1–36.9; O2SAT 91–100
[2021-04-08] MEDS: ipratropium-albuterol 3 mL Neb INHALATION ×4 (02:00→21:38)
[2021-04-08 06:09] LABS: Basophils % 0.1 %; Eosinophils # 0.1 10^3/uL (0.0-0.8); Eosinophils % 0.3 %; Hematocrit 42.4 % (42.0-52.0); Hemoglobin 13.7 g/dL (11.7-16.6); Lymphocytes # 0.5 10^3/uL (0.8-4.8); Lymphocytes % 3.1 %; Mean Corpuscular HGB Conc 32.3 g/dL (30.0-36.0); Mean Corpuscular Volume 80.5 fL (80-94); Mean Platelet Volume 9.3 fL (7.4-10.4); Monocytes # 0.9 10^3/uL (0.2-0.9); Monocytes % 6.3 %; Neutrophils # 12.75 10^3/uL (1.8-7.7); Neutrophils % 89.2 %; Nucleated Red Blood Cells % 0 %; Platelet Count 258 10^3/cmm (130-400); Red Blood Count 5.27 10^6/uL (4.1-5.3); Red Cell Distribution Width 16.2 % (12.1-15.1); White Blood Count 14.3 10^3/uL (4.0-10.0)
[2021-04-08] MEDS: enoxaparin 40 mg/0.4 mL Syringe SUBCUT (06:18)
[2021-04-08 06:44] LABS: Alanine Aminotransferase 17 U/L (0-41); Albumin Level 2.6 g/dL (3.5-5.2); Alkaline Phosphatase 87 IU/L (40-130); Anion Gap 16.1 (5-19); Aspartate Amino Transferase 17 U/L (0-40); Blood Urea Nitrogen 30 mg/dL (8-23); C Reactive Protein 53.9 mg/L (0.0-4.9); Calcium 8.2 mg/dL (8.5-10.5); Carbon Dioxide 27 mmol/L (22-29); Chloride 94 mmol/L (98-107); Globulin 3.2 g/dL (1.3-4.6); Glucose 107 mg/dL (65-115); Osmolality Calculated 281 mOsm/kg (285-295); Potassium 5.1 mmol/L (3.5-5.1); Sodium 132 mmol/L (136-145); Total Bilirubin 0.6 mg/dL (0.15-1.2); Total Protein 5.8 g/dL (6.6-8.7)
[2021-04-08 07:24] LABS: D Dimer 1.02 ug/mIFEU (0-0.59)
--- NOTE | 2021-04-08 09:03 | PC.SOCIAL ---
IMM Update Pg. 2 of IMM updated and reviewed with patient's daughter over the phone, verbalized understanding.
--- NOTE | 2021-04-08 09:49 | PC.CHAP ---
Pastoral Care Encounter/Spiritual Assessment Type of Contact [] Declined cement patcher visit [] Patient/Family/Request visit [] Outpatient visit [] Follow-up visit [] Physician referral [] Code/Alert [x] Routine visit [] Staff referral [] Actively dying [] Patient sleeping [] Family support [] [] Out of room [] Palliative care [] [] Receiving care in room [] Pre-surgical visit [] Trauma [] Long length of stay [] ICU visit [x] Other:covid Relational/Emotional Strength [] Patient feels connected with others/family/visitors/staff [] Distress [] Loneliness/isolation [] Abandonment Spirituality of Patient [] Person of Marina [] Attends Mandaen of their [place] [] Believes in Prayer [] Reads Bible or Adventism materials [] There are Spiritual issues to be addressed Tooth Inspector Interventions [x] Prayer [] Active listening [] Non-anxious presence [] Spiritual/emotional support [] Crisis/trauma care [] Spiritual counseling [] Bereavement support [] Provided bereavement packet [] Provided Bible/devotional materials [] Provided toy/stuffed animal, coloring book to patient or family member [] Provided Communion [] Anointing/[place] [] Salvation [x] Completed spiritual assessment [] Other: Impact on Illness or Injury [] Angry [] Fearful [] Anxious [] Often cries [] Exhaustion [] Unable to work [] Unable to attend confucianism [] Unable to walk/stand [] Unable to read [] Unable to drive [] Unable to eat/drink [] Unable to sleep [] Unable to be with family [] Patient intubated [] Other: Summary Time spent with patient
[2021-04-08] MEDS: docusate sodium 100 mg Capsule PO ×2 (10:07→17:46)
[2021-04-08] MEDS: pantoprazole DR 40 mg Tablet PO (10:07)
[2021-04-08] MEDS: ondansetron 2 mg/ML SDV 2 mL 4 MG IVP ×2 (10:07→23:06)
[2021-04-08] MEDS: guaiFENesin 600 mg Tablet 1200 MG PO ×2 (10:07→17:46)
[2021-04-08] MEDS: duloxetine 20 mg Capsule PO (10:08)
[2021-04-08] MEDS: dexamethasone 4 mg/mL INJ 6 MG IVP (10:08)
[2021-04-08] MEDS: lidocaine 5% Patch 1 PATCH TOPICAL (10:08)
[2021-04-08] MEDS: losartan 50 mg Tablet PO (10:40)
[2021-04-08 14:07] LABS: Coronavirus Test Green County Detected
--- NOTE | 2021-04-08 14:09 | PM.PN ---
Subjective Subjective: Interval history: Records reviewed. Ta wants a catheter. He reports his breathing is about the same as yesterday. Medications: Reviewed: Yes Vitals/I&O/Wt Last Vital Signs Temp 98.3 F 04/08/21 12:00 Pulse 96 04/08/21 12:00 Resp 20 H 04/08/21 12:00 BP 92/62 04/08/21 12:00 Pulse Ox 94 04/08/21 12:00 04/07/21 04/08/21 04/08/21 22:59 06:59 14:59 Output Total 500 / 500 500 / 1000 Balance -500 / -400 -500 / -900 Physical Exam Narrative: EXAM NARRATIVE: General exam is a tired appearing white male, mild to moderate respiratory distress Neck is supple no lymphadenopathy or thyromegaly Cardiovascular regular rate and rhythm without murmur Lungs clear Abdomen is soft with positive bowel sounds Extremities no cyanosis clubbing or edema Urinary Catheter Management^: Craig: Cath Placed During This Visit: yes Urinary Catheter Date of Insertion: 04/08/21 Urinary Catheter Time of Insertion: 13:15 Data : 04/08/21 05:00 04/08/21 05:00 A&P Assessment and plan (1) COVID-19: Still requiring high flow oxygen Remdesivir dosing has been completed Continue dexamethasone Continue Levaquin for suspected superimposed bacterial pneumonia. Appears to be responding. Flutter valve, pulmonary toilet, incentive spirometry Inflammatory level slightly higher As per discussion we have requested for recheck COVID-19 PCR. He originally reportedly started symptoms around 03/19. In case negative, another test can possibly be done over 24 hours later, and if also negative, perhaps isolation can be discontinued. Could allow visitation from his daughter. Continue prophylactic Lovenox. Sputum culture with heavy mixed upper respiratory gabe. Urine bacterial antigens negative, MRSA PCR negative. Status: Acute (2) Hypoxia: As above. Status: Acute (3) Shortness of breath: Status: Acute (4) Extremity pain: Continue Ultram. Status: Acute (5) DNR no code (do not resuscitate): see below Status: Acute (6) Hyponatremia with decreased serum osmolality: Stable, improving Status: Acute Additional A&P Information Hypertension. Blood pressure is lower. Discontinue losartan. Low back pain. Pain medicine as needed Lovenox for DVT prophylaxis Attestations Medical Necessity Statement*: Needs continued hospitalization for IV steroids, and high flow oxygen secondary to severe COVID-19 pneumonia. Coding Level of Care Code Acute Workers Compensation Paralegal for [facility] Diagnoses COVID-19 U07.1 Hypoxia R09.02 Shortness of breath R06.02 Extremity pain M79.609 DNR no code (do not resuscitate) Z66 Hyponatremia with decreased serum osmolality E87.1
--- NOTE | 2021-04-08 17:32 | PC.NUTR ---
Nutrition follow up: Po intakes averaging 10% X 5 recorded meals over past 4 days. (Likely < 10%, as additional 7 meals missing from EMR, assumed to be 0%) Recommend to encourage po intakes of meals/supplements and provide preferences as available. Pt may need additional assistance at meals due to weakness. Notified MD of poor intakes X [address] assessment for further details.
--- NOTE | 2021-04-08 17:35 | PC.RESP ---
RT Shift Note Frequent safety and respiratory rounds continue. Orders completed as indicated. Patient monitored pre and post treatments throughout shift. Patient tolerated treatments appropriately. Condition did not change. Patient and/or registered representative educated on respiratory treatment and medications. Patient and/or registered representative verbalized understanding. Will continue to monitor patient progress.
[2021-04-08] MEDS: levoFLOXacin 750 mg Tablet PO (17:46)
[2021-04-08] MEDS: acetaminophen 325 mg Tablet 650 MG PO (17:57)
[2021-04-08] MEDS: pramipexole 0.25 mg Tablet 0.125 MG PO (21:35)
[2021-04-08] MEDS: atorvastatin 40 mg Tablet 80 MG PO (21:36)
[2021-04-08] MEDS: TRAMadol 50 mg Tablet PO (21:36)
[2021-04-09] VITALS (13 sets, daily range): BP systolic 97–139; BP diastolic 67–87; PULSE 80–105; RESP 18–27; TEMP 36.4–36.8; O2SAT 86–99
[2021-04-09] MEDS: ipratropium-albuterol 3 mL Neb INHALATION ×4 (03:38→21:37)
[2021-04-09] MEDS: enoxaparin 40 mg/0.4 mL Syringe SUBCUT (05:32)
--- NOTE | 2021-04-09 05:53 | PC.NURSE ---
Pt remained on HHF throughout the night, needing mild adjustments. Saturations between 87-91% with mild desaturation with exertion. BP also better this evening and was able to administer Tramadolx1, BP did get soft thereafter - 90s/50 but bounced back WNL after a few hours.
--- NOTE | 2021-04-09 06:01 | PC.RESP ---
RT Shift Note Frequent safety and respiratory rounds continue. Orders completed as indicated. Patient monitored pre and post treatments throughout shift. Patient did tolerate treatments appropriately. Condition did not change. Patient and/or in store marketing representative educated on respiratory treatment and medications. Patient and/or in store marketing representative verbalize understanding. Will continue to monitor patient progress.
[2021-04-09 07:17] LABS: Basophils % 0.1 %; Eosinophils % 0.2 %; Hematocrit 43.3 % (42.0-52.0); Hemoglobin 14.1 g/dL (11.7-16.6); Lymphocytes # 0.5 10^3/uL (0.8-4.8); Lymphocytes % 3.1 %; Mean Corpuscular HGB Conc 32.6 g/dL (30.0-36.0); Mean Corpuscular Hemoglobin 26.3 pg (28.0-34.0); Mean Corpuscular Volume 80.8 fL (80-94); Monocytes # 0.9 10^3/uL (0.2-0.9); Monocytes % 5.8 %; Neutrophils # 13.97 10^3/uL (1.8-7.7); Neutrophils % 89.7 %; Nucleated Red Blood Cells % 0 %; Platelet Count 243 10^3/cmm (130-400); Red Blood Count 5.36 10^6/uL (4.1-5.3); Red Cell Distribution Width 16.2 % (12.1-15.1); White Blood Count 15.6 10^3/uL (4.0-10.0)
[2021-04-09 07:53] LABS: Alanine Aminotransferase 14 U/L (0-41); Albumin Level 2.7 g/dL (3.5-5.2); Alkaline Phosphatase 88 IU/L (40-130); Anion Gap 14.4 (5-19); Aspartate Amino Transferase 11 U/L (0-40); Blood Urea Nitrogen 28 mg/dL (8-23); Carbon Dioxide 27 mmol/L (22-29); Chloride 92 mmol/L (98-107); Globulin 2.9 g/dL (1.3-4.6); Glucose 103 mg/dL (65-115); Osmolality Calculated 274 mOsm/kg (285-295); Potassium 4.4 mmol/L (3.5-5.1); Sodium 129 mmol/L (136-145); Total Bilirubin 0.7 mg/dL (0.15-1.2); Total Protein 5.6 g/dL (6.6-8.7)
[2021-04-09] MEDS: pantoprazole DR 40 mg Tablet PO (11:19)
[2021-04-09] MEDS: docusate sodium 100 mg Capsule PO ×2 (11:19→17:07)
[2021-04-09] MEDS: guaiFENesin 600 mg Tablet 1200 MG PO ×2 (11:19→17:07)
[2021-04-09] MEDS: duloxetine 20 mg Capsule PO (11:19)
[2021-04-09] MEDS: FUROsemide 10 mg/mL SDV 2mL 20 MG IVP (11:19)
[2021-04-09] MEDS: dexamethasone 4 mg/mL INJ 6 MG IVP (11:20)
[2021-04-09] MEDS: lidocaine 5% Patch 1 PATCH TOPICAL (11:20)
[2021-04-09] MEDS: acetaminophen 325 mg Tablet 650 MG PO (11:20)
--- NOTE | 2021-04-09 15:07 | P.PN_ITS ---
Subjective Subjective: Interval history: Ta does not have any specific complaints. He appears weak. Medications: Reviewed: Yes Vitals/I&O/Wt Last Vital Signs Temp 97.8 F 04/09/21 12:00 Pulse 88 04/09/21 14:00 Resp 18 04/09/21 12:00 BP 115/78 04/09/21 12:00 Pulse Ox 91 04/09/21 12:00 04/09/21 04/09/21 04/09/21 06:59 14:59 22:59 Intake Total 120 / 120 480 / 480 Output Total 700 / 700 Balance -580 / -580 480 / 480 Physical Exam Narrative: EXAM NARRATIVE: General exam is a tired appearing white male, moderate respiratory distress Neck is supple no lymphadenopathy or thyromegaly Cardiovascular regular rate and rhythm without murmur Lungs clear Abdomen is soft with positive bowel sounds Extremities no cyanosis clubbing or edema Urinary Catheter Management^: Craig: Cath Placed During This Visit: yes Reason for Continuing Indwelling Catheter: Accurate Measurement of Urinary Output in Critically Ill Patients Urinary Catheter Date of Insertion: 04/08/21 Urinary Catheter Time of Insertion: 13:15 Data : 04/09/21 06:30 04/09/21 06:30 A&P Assessment and plan (1) COVID-19: Still requiring high flow oxygen. 90% FiO2 currently. Remdesivir dosing has been completed Continue dexamethasone Continue Levaquin for suspected superimposed bacterial pneumonia. Appears to be responding. Flutter valve, pulmonary toilet, incentive spirometry Sodium slightly lower. Lasix 20 mg IV x1. As per discussion we have requested for recheck COVID-19 PCR. Covid PCR still positive Rapid first positive on 03/26 Continue prophylactic Lovenox. Sputum culture with heavy mixed upper respiratory gabe. Urine bacterial antigens negative, MRSA PCR negative. Status: Acute (2) Hypoxia: As above. Status: Acute (3) Shortness of breath: Status: Acute (4) Extremity pain: Continue Ultram. Status: Acute (5) DNR no code (do not resuscitate): see below Status: Acute (6) Hyponatremia with decreased serum osmolality: Slightly lower. Lasix x1 given. Status: Acute Additional A&P Information Hypertension. Blood pressure is lower. Discontinue losartan. Low back pain. Pain medicine as needed Lovenox for DVT prophylaxis Attestations Medical Necessity Statement*: Needs continued hospitalization for high flow oxygen requirement with severe COVID-19 pneumonia. Coding Level of Care Code Acute Wrecker Driver for Chg Fwd Diagnoses COVID-19 U07.1 Hypoxia R09.02 Shortness of breath R06.02 Extremity pain M79.609 DNR no code (do not resuscitate) Z66 Hyponatremia with decreased serum osmolality E87.1
[2021-04-09] MEDS: levoFLOXacin 750 mg Tablet PO (16:45)
[2021-04-09] MEDS: atorvastatin 40 mg Tablet 80 MG PO (20:31)
[2021-04-09] MEDS: pramipexole 0.25 mg Tablet 0.125 MG PO (20:31)
[2021-04-09] MEDS: TRAMadol 50 mg Tablet PO (20:31)
[2021-04-10] VITALS (17 sets, daily range): BP systolic 98–132; BP diastolic 55–80; PULSE 76–102; RESP 17–29; TEMP 36.4–37.1; O2SAT 88–94
[2021-04-10] MEDS: ipratropium-albuterol 3 mL Neb INHALATION ×4 (03:27→21:20)
[2021-04-10] MEDS: enoxaparin 40 mg/0.4 mL Syringe SUBCUT (05:05)
--- NOTE | 2021-04-10 05:19 | PC.RESP ---
RT Shift Note Frequent safety and respiratory rounds continue. Orders completed as indicated. Patient monitored pre and post treatments throughout shift. Patient did tolerate treatments appropriately. Condition did not change. Patient and/or sales representative metals educated on respiratory treatment and medications. Patient and/or sales representative metals verbalized understanding. Will continue to monitor patient progress.
[2021-04-10 07:02] LABS: Basophils % 0.1 %; Eosinophils % 0.1 %; Hematocrit 45.8 % (42.0-52.0); Hemoglobin 14.7 g/dL (11.7-16.6); Lymphocytes # 0.4 10^3/uL (0.8-4.8); Lymphocytes % 2.7 %; Mean Corpuscular HGB Conc 32.1 g/dL (30.0-36.0); Mean Corpuscular Hemoglobin 25.8 pg (28.0-34.0); Mean Corpuscular Volume 80.4 fL (80-94); Mean Platelet Volume 9.3 fL (7.4-10.4); Monocytes % 6.6 %; Neutrophils # 13.97 10^3/uL (1.8-7.7); Neutrophils % 89.5 %; Nucleated Red Blood Cells % 0 %; Platelet Count 255 10^3/cmm (130-400); Red Cell Distribution Width 16.2 % (12.1-15.1); White Blood Count 15.6 10^3/uL (4.0-10.0)
[2021-04-10 07:23] LABS: Alanine Aminotransferase 14 U/L (0-41); Albumin Level 2.7 g/dL (3.5-5.2); Alkaline Phosphatase 94 IU/L (40-130); Anion Gap 16.5 (5-19); Aspartate Amino Transferase 11 U/L (0-40); Blood Urea Nitrogen 33 mg/dL (8-23); Calcium 8.4 mg/dL (8.5-10.5); Carbon Dioxide 27 mmol/L (22-29); Chloride 91 mmol/L (98-107); Globulin 3.4 g/dL (1.3-4.6); Glucose 128 mg/dL (65-115); Osmolality Calculated 279 mOsm/kg (285-295); Potassium 4.5 mmol/L (3.5-5.1); Sodium 130 mmol/L (136-145); Total Bilirubin 0.7 mg/dL (0.15-1.2); Total Protein 6.1 g/dL (6.6-8.7)
--- NOTE | 2021-04-10 09:01 | PC.SOCIAL ---
IMM Update pg 2 of IMM updated and reviewed via telephone w/ daughter Raeann Casas. Chart updated.
--- NOTE | 2021-04-10 11:00 | PC.CHAP ---
Pastoral Care Encounter/Spiritual Assessment Type of Contact [] Declined product support manager visit [] Patient/Family/Request visit [] Outpatient visit [] Follow-up visit [] Physician referral [] Code/Alert [x] Routine visit [] Staff referral [] Actively dying [] Patient sleeping [] Family support [] [] Out of room [] Palliative care [] [] Receiving care in room [] Pre-surgical visit [] Trauma [] Long length of stay [] ICU visit [x] Other: 2A Relational/Emotional Strength [] Patient feels connected with others/family/visitors/staff [] Distress [] Loneliness/isolation [] Abandonment Spirituality of Patient [] Person of [place] [] Attends Confucianism of their [place] [] Believes in Prayer [] Reads Bible or Bahai materials [] There are Spiritual issues to be addressed Director Selection And Administration Interventions [x Prayer [] Active listening [] Non-anxious presence [] Spiritual/emotional support [] Crisis/trauma care [] Spiritual counseling [] Bereavement support [] Provided bereavement packet [] Provided Bible/devotional materials [] Provided toy/stuffed animal, coloring book to patient or family member [] Provided Communion [] Anointing/[place] [] Salvation [x] Completed spiritual assessment [] Other: Impact on Illness or Injury [] Angry [] Fearful [] Anxious [] Often cries [] Exhaustion [] Unable to work [] Unable to attend judaism [] Unable to walk/stand [] Unable to read [] Unable to drive [] Unable to eat/drink [] Unable to sleep [] Unable to be with family [] Patient intubated [] Other: Summary Time spent with patient
--- NOTE | 2021-04-10 11:51 | PM.PN ---
Subjective Subjective: Interval history: Ta reports he is about the same today. He was hungry, and ate a little bit of oatmeal for breakfast. Medications: Reviewed: Yes Vitals/I&O/Wt Last Vital Signs Temp 98.7 F 04/10/21 08:00 Pulse 100 04/10/21 08:20 Resp 26 H 04/10/21 08:07 BP 132/62 04/10/21 08:00 Pulse Ox 91 04/10/21 08:07 04/09/21 04/10/21 04/10/21 22:59 06:59 14:59 Intake Total 120 / 600 Output Total 950 / 950 350 / 1300 Balance -950 / -470 -230 / -700 Physical Exam Narrative: EXAM NARRATIVE: General exam moderate respiratory distress, but perhaps slightly better than yesterday. Neck is supple no lymphadenopathy or thyromegaly Cardiovascular regular rate and rhythm without murmur Lungs clear Abdomen is soft with positive bowel sounds Extremities no cyanosis clubbing or edema Urinary Catheter Management^: Craig: Cath Placed During This Visit: yes Reason for Continuing Indwelling Catheter: Accurate Measurement of Urinary Output in Critically Ill Patients Urinary Catheter Date of Insertion: 04/08/21 Urinary Catheter Time of Insertion: 13:15 Data : 04/10/21 05:30 04/10/21 05:30 A&P Assessment and plan (1) COVID-19: Still requiring high flow oxygen. Now down to 80% Remdesivir dosing has been completed Continue dexamethasone Continue Levaquin for suspected superimposed bacterial pneumonia. Appears to be responding. Flutter valve, pulmonary toilet, incentive spirometry Sodium slightly higher. Received 1 dose of Lasix 04/09 As per discussion we have requested for recheck COVID-19 PCR. Covid PCR still positive Rapid first positive on 03/26 Continue prophylactic Lovenox. Sputum culture with heavy mixed upper respiratory gabe. Urine bacterial antigens negative, MRSA PCR negative. Status: Acute (2) Hypoxia: As above. Status: Acute (3) Shortness of breath: Status: Acute (4) Extremity pain: Continue Ultram. Status: Acute (5) DNR no code (do not resuscitate): see below Status: Acute (6) Hyponatremia with decreased serum osmolality: Slightly lower. Lasix x1 given. Add salt tablets. Status: Acute Additional A&P Information Hypertension. Blood pressure was somewhat low and losartan was discontinued during hospital course. Low back pain. Pain medicine as needed Lovenox for DVT prophylaxis Attestations Medical Necessity Statement*: Needs continued hospitalization for COVID-19 pneumonia requiring high flow oxygen. Coding Level of Care Code Acute Hospital Orderly for Chg Fwd Diagnoses COVID-19 U07.1 Hypoxia R09.02 Shortness of breath R06.02 Extremity pain M79.609 DNR no code (do not resuscitate) Z66 Hyponatremia with decreased serum osmolality E87.1
[2021-04-10] MEDS: guaiFENesin 600 mg Tablet 1200 MG PO ×2 (12:34→17:53)
[2021-04-10] MEDS: pantoprazole DR 40 mg Tablet PO (12:35)
[2021-04-10] MEDS: duloxetine 20 mg Capsule PO (12:35)
[2021-04-10] MEDS: dexamethasone 4 mg/mL INJ 6 MG IVP (12:35)
[2021-04-10] MEDS: lidocaine 5% Patch 1 PATCH TOPICAL ×2 (12:36→21:47)
[2021-04-10] MEDS: TRAMadol 50 mg Tablet PO ×2 (14:40→21:43)
[2021-04-10] MEDS: docusate sodium 100 mg Capsule PO (17:53)
[2021-04-10] MEDS: levoFLOXacin 750 mg Tablet PO (17:53)
[2021-04-10] MEDS: sodium chloride 1 gm Tablet PO (17:53)
[2021-04-10] MEDS: atorvastatin 40 mg Tablet 80 MG PO (21:43)
[2021-04-10] MEDS: pramipexole 0.25 mg Tablet 0.125 MG PO (21:47)
--- NOTE | 2021-04-10 23:12 | PC.RESP ---
RT Shift Note Frequent safety and respiratory rounds continue. Orders completed as indicated. Patient monitored pre and post treatments throughout shift. Patient [Did.] tolerate treatments appropriately. Condition [Improved]. Patient and/or special service representative educated on respiratory treatment and medications. Patient and/or special service representative [ResponseToTeaching]. Will continue to monitor patient progress.
--- NOTE | 2021-04-10 23:19 | PC.RESP ---
RT Shift Note Frequent safety and respiratory rounds continue. Orders completed as indicated. Patient monitored pre and post treatments throughout shift. Patient [Did] tolerate treatments appropriately. Condition [.DidNotChange]. Patient and/or claim service representative educated on respiratory treatment and medications. Patient and/or claim service representative [ResponseToTeaching]. Will continue to monitor patient progress.
[2021-04-11] VITALS (18 sets, daily range): BP systolic 84–150; BP diastolic 51–83; PULSE 73–97; RESP 20–36; TEMP 36.3–36.8; O2SAT 81–91
[2021-04-11] MEDS: enoxaparin 40 mg/0.4 mL Syringe SUBCUT (06:20)
[2021-04-11 07:38] LABS: Blood Urea Nitrogen 34 mg/dL (8-23); Calcium 8.4 mg/dL (8.5-10.5); Carbon Dioxide 26 mmol/L (22-29); Chloride 93 mmol/L (98-107); Glucose 112 mg/dL (65-115); Magnesium 2.2 mg/dL (1.7-2.3); Osmolality Calculated 274 mOsm/kg (285-295); Sodium 128 mmol/L (136-145)
[2021-04-11] MEDS: ipratropium-albuterol 3 mL Neb INHALATION ×4 (08:47→21:05)
[2021-04-11] MEDS: dexamethasone 4 mg/mL INJ 6 MG IVP (08:57)
[2021-04-11] MEDS: FUROsemide 10 mg/mL SDV 2mL 20 MG IVP (08:57)
[2021-04-11] MEDS: guaiFENesin 600 mg Tablet 1200 MG PO ×2 (08:58→17:31)
[2021-04-11] MEDS: sodium chloride 1 gm Tablet PO (08:58)
[2021-04-11] MEDS: docusate sodium 100 mg Capsule PO ×2 (08:59→17:32)
[2021-04-11] MEDS: pantoprazole DR 40 mg Tablet PO (08:59)
[2021-04-11] MEDS: duloxetine 20 mg Capsule PO (08:59)
[2021-04-11] MEDS: lidocaine 5% Patch 1 PATCH TOPICAL ×2 (09:06→21:31)
--- NOTE | 2021-04-11 11:17 | XR_ITS ---
WS: [id number] Portable AP upright chest, 04/11/2021 Clinical Data: resp failure Comparison: Portable chest, 04/03/2021. Findings: The bilateral patchy opacity remains the same. There is more opacity on the left than the r ight. There are monitor leads on the chest wall. The heart size remains same. XR/XR chest 1V portable [id number] Impression: No change in patchy bilateral pulmonary opacities consistent with pneumonia.
[2021-04-11] MEDS: LORazepam 2 mg/mL INJ 1 mL 1 MG IVP (11:21)
[2021-04-11] MEDS: morphine 4 mg/mL SDV 1 mL 2 MG IVP (11:47)
[2021-04-11] MEDS: dexmedetomidine 400 MCG in sodium chloride 0.9% (100 ml) 100 ML IV (11:58)
--- NOTE | 2021-04-11 12:27 | PC.NURSE ---
DR. ALMEIDA GAVE OK FOR PTS FAMILY MEMBERS, (TYLER & DEVNE) TO VISIT WITH PT
--- NOTE | 2021-04-11 12:47 | PC.NUTR ---
Nutrition follow up: PO intakes averaging 33% since last review. Spoke with pt's nurse who states not a good time to speak with pt given overall status. Requested nurse to notify dietary if pt has meal/supplement preferences at later time. Recommend encourage po intakes of meals/supplements and provide preferences as available. See full RD assessment for further details.
--- NOTE | 2021-04-11 13:08 | PC.NURSE ---
PT STARTED ON PRESSEDEX AT 0.1MCG/KG/HR, INCREASED TO 0.2 MCG/KG/HR, PT WAS PULLING AT NON REBREATHER MASK
[2021-04-11 13:34] LABS: D Dimer 1.22 ug/mIFEU (0-0.59)
--- NOTE | 2021-04-11 15:09 | P.PN_ITS ---
Subjective Subjective: Interval history: Ta reports he is tired. He wants the BiPAP on, but then gets anxious with it on. He took it significant turn for the worse this afternoon, and I called his family and. We discussed potential comfort measures if BiPAP and Precedex fail or if he worsens on this/cannot tolerate it. They are in agreement. He does not want intubation. Medications: Reviewed: Yes Vitals/I&O/Wt Last Vital Signs Temp 97.3 F L 04/11/21 11:02 Pulse 81 04/11/21 14:54 Resp 36 H 04/11/21 14:51 BP 84/60 04/11/21 14:54 Pulse Ox 88 L 04/11/21 14:54 04/11/21 04/11/21 04/11/21 06:59 14:59 22:59 Intake Total 60 / 780 Output Total 300 / 650 Balance -240 / 130 Physical Exam Narrative: EXAM NARRATIVE: General exam tired male, on a nonrebreather and high flow oxygen when I saw him. Neck is supple no lymphadenopathy or thyromegaly Cardiovascular tachycardic Lungs clear Abdomen is soft with positive bowel sounds Extremities no cyanosis clubbing or edema Urinary Catheter Management^: Craig: Cath Placed During This Visit: yes Reason for Continuing Indwelling Catheter: Acute Urinary Retention or Obstruction Urinary Catheter Date of Insertion: 04/08/21 Urinary Catheter Time of Insertion: 13:15 Data : 04/10/21 05:30 04/11/21 06:15 A&P Assessment and plan (1) COVID-19: Now on BiPAP, and Precedex. Saturation about 88%. Remdesivir dosing has been completed Continue dexamethasone Chest x-ray repeated. No pneumothorax IV antibiotics expanded to vancomycin, Primaxin. Levaquin discontinued. Lasix 20 mg IV x1 Flutter valve, pulmonary toilet, incentive spirometry D-dimer checked and not significantly elevated considering disease process. He continues to decompensate, and I had an end-of-life discussion with family today. If he worsens on BiPAP, okay to proceed with comfort after discussing with family. As per discussion we have requested for recheck COVID-19 PCR. Covid PCR still positive Rapid first positive on 03/26 Continue prophylactic Lovenox. Sputum culture with heavy mixed upper respiratory gabe. Urine bacterial antigens negative, MRSA PCR negative. Status: Acute (2) Hypoxia: As above. Status: Acute (3) Shortness of breath: Status: Acute (4) Extremity pain: Continue Ultram. Status: Acute (5) DNR no code (do not resuscitate): see below Status: Acute (6) Hyponatremia with decreased serum osmolality: Slightly lower. Lasix x1 given. Discontinue salt tablets. He cannot tolerate them. Status: Acute Additional A&P Information Hypertension. Blood pressure was somewhat low and losartan was discontinued during hospital course. Low back pain. Pain medicine as needed Lovenox for DVT prophylaxis Hold on any laboratory tomorrow pending clinical evaluation. Attestations Medical Necessity Statement*: Sedation secondary to decompensated respiratory failure secondary to COVID-19 pneumonia. Coding Level of Care Code Acute Displayer Merchandise for [facility] Diagnoses COVID-19 U07.1 Hypoxia R09.02 Shortness of breath R06.02 Extremity pain M79.609 DNR no code (do not resuscitate) Z66 Hyponatremia with decreased serum osmolality E87.1
[2021-04-11] MEDS: atorvastatin 40 mg Tablet 80 MG PO (21:30)
[2021-04-11] MEDS: pramipexole 0.25 mg Tablet 0.125 MG PO (21:30)
--- NOTE | 2021-04-11 23:33 | PC.RESP ---
RT Shift Note Frequent safety and respiratory rounds continue. Orders completed as indicated. Patient monitored pre and post treatments throughout shift. Patient [Did.] tolerate treatments appropriately. Condition [Improved.]. Patient and/or employer relations representative educated on respiratory treatment and medications. Patient and/or employer relations representative [ResponseToTeaching]. Will continue to monitor patient progress.
[2021-04-12] VITALS (10 sets, daily range): BP systolic 82–89; BP diastolic 44–51; PULSE 69–180; RESP 18–39; TEMP 35.5–36.1; O2SAT 52–90
[2021-04-12] MEDS: morphine 4 mg/mL SDV 1 mL 2 MG IVP (06:11)
[2021-04-12] MEDS: enoxaparin 40 mg/0.4 mL Syringe SUBCUT (06:25)
--- NOTE | 2021-04-12 08:36 | PC.NURSE ---
CONDITION CHANGE: AT APPROXIMATELY 0430 THE PATIENT'S O2 SATS WERE NOTED TO BE IN THE 60'S. THIS NURSE AND THE SENIOR TECHNICAL EDITOR WENT TO THE PATIENT ROOM AND EVALUATED THE PATIENT. HE WAS FOUND TO BE COOL TO TOUCH AND OXYGEN IN THE LOW 70'S AND BP 80'S/50'S. THE PATIENT WAS THEN REPOSITIONED AND HOB ELEVATED. AT THIS TIME A CALL WAS MADE TO GET THE BEAR HUGGER TO THE ROOM TO HELP WARM THE PATIENT. WHILE WAITING A FEW WARM BLANKETS WERE APPLIED TO TRY AND BRING BODY TEMP UP. HOSPITALIST CALLED AND NOTIFIED IN CHANGE. CONTINUED TO MONITOR PATIENT FOR APPROXIMATELY ONE HOUR AFTER TRYING TO GET THE O2 SATS, BP, AND TEMPERATURE UP THE HOSPITALIST WAS CALLED AND INFORMED ALONG WITH FAMILY. THE HOSPITALIST CALLED FAMILY TO CONFIRM COMFORT CARE MEASURES TO BEGIN AND FAMILY AGREED TO START.
[2021-04-12] MEDS: morphine 10 mg/0.5 mL oral liq UD 5 MG PO (09:02)
[2021-04-12] MEDS: morphine 10 mg/0.5 mL oral liq UD SUBLINGUAL ×3 (10:23→16:55)
[2021-04-12] MEDS: dexmedetomidine 400 MCG in sodium chloride 0.9% (100 ml) 100 ML IV (13:47)
--- NOTE | 2021-04-12 14:08 | PC.SOCIAL ---
IMM Update pg 2 of IMM not updated due to pt. transitioned to comfort measures and not anticipating discharge in the next 2 days.
--- NOTE | 2021-04-12 15:39 | PM.PN ---
Subjective Subjective: Interval history: Ta was seen earlier today with his family. He has progressed to comfort measures. Medications: Reviewed: Yes Vitals/I&O/Wt Last Vital Signs Temp 96.3 F L 04/12/21 05:36 Pulse 74 04/12/21 05:15 Resp 34 H 04/12/21 05:47 BP 89/49 04/12/21 04:00 Pulse Ox 77 L 04/12/21 05:47 04/12/21 04/12/21 04/12/21 06:59 14:59 22:59 Intake Total 155.506 / 155.506 Balance 155.506 / 155.506 Physical Exam Narrative: EXAM NARRATIVE: General exam tired male, does not respond to me Neck is supple no lymphadenopathy or thyromegaly Cardiovascular tachycardic Lungs clear Abdomen is soft with positive bowel sounds Extremities no cyanosis clubbing or edema Urinary Catheter Management^: Craig: Cath Placed During This Visit: yes Reason for Continuing Indwelling Catheter: Acute Urinary Retention or Obstruction Urinary Catheter Date of Insertion: 04/08/21 Urinary Catheter Time of Insertion: 13:15 Data : 04/10/21 05:30 04/11/21 06:15 A&P Assessment and plan (1) COVID-19: Patient has progressed to comfort measures secondary to his long-term need for high flow oxygen Morphine, Ativan as needed Status: Acute (2) Hypoxia: As above. Status: Acute (3) Shortness of breath: Status: Acute (4) Extremity pain: Status: Acute (5) DNR no code (do not resuscitate): see below Status: Acute (6) Hyponatremia with decreased serum osmolality: Progress to comfort measures. Status: Acute Additional A&P Information No DVT is progressed to comfort measures. Attestations Medical Necessity Statement*: Needs come continued hospitalization for end-of-life care. Coding Level of Care Code Acute Electrical Products Engineer for [facility] Diagnoses COVID-19 U07.1 Hypoxia R09.02 Shortness of breath R06.02 Extremity pain M79.609 DNR no code (do not resuscitate) Z66 Hyponatremia with decreased serum osmolality E87.1
[2021-04-12] MEDS: LORazepam 2 mg/mL INJ 1 mL IVP (16:53)
[2021-04-12] MEDS: morphine 4 mg/mL SDV 1 mL IVP (17:34)
--- NOTE | 2021-04-12 18:26 | PM.DDS ---
Discharge Providers DDS Date of Admission: 03/26/21 10:43 Date Summary Completed: 04/15/21 Attending Provider at Admission: Samy Austin DO Time of : 17:55 Attending Provider at Discharge: Bruno Khan MD Primary Care Provider: Cole Tompkins MD DS Diagnoses Hospital Diagnoses (1) COVID-19: (2) Hypoxia: (3) Shortness of breath: (4) Extremity pain: (5) DNR no code (do not resuscitate): (6) Hyponatremia with decreased serum osmolality: Reason for Visit Reason for Visit: covid +, sob Summary Date and Time of Date of : 04/12/21 Time of : 17:55 Summary Summary: Ta is an 86-year-old white male who presented to the hospital on March 26 with Covid. You week required oxygen. On admission he made the decision that he wanted to be DNR. He was placed on dexamethasone, and remdesivir. Oxygen was titrated upwards as needed, to high flow, and eventually BiPAP. During his hospitalization he was empirically covered with Levaquin for possible bacterial infection. MRSA PCR was negative. He received several doses of diuretics during his hospital stay to try to improve his pulmonary status. Overall, his pulmonary status slowly became worse during his entire hospitalization. I visited multiple times with family, as well as the patient. Precedex was eventually used to facilitate tolerance of BiPAP, and antibiotics expanded again to vancomycin and Primaxin. No improvement occurred, and he was eventually changed to comfort measures on the in accordance with patient's and family wishes. Final diagnosis at , COVID-19 pneumonia. Additional Data Advance directives?: Yes Discharge Plan Discharge Patient Disposition: Condition: Stable Probable Cause of Probable cause of : Cardiac arrest DS Attestations Time Spent in /Discharge Care*: greater than 30 min Quality - AMI: AMI present?: No Quality - Stroke: CVA present?: No Symptom Onset Unknown: No Quality - VTE: VTE present?: No Deep Vein Thrombosis/Pulmonary Embolism Present on Admission: No Coding Level of Care Code Acute Lawn [employer] Tree Service Spray Supervisor for Chg Fwd Diagnoses COVID-19 U07.1 Hypoxia R09.02 Shortness of breath R06.02 Extremity pain M79.609 DNR no code (do not resuscitate) Z66 Hyponatremia with decreased serum osmolality E87.1
--- NOTE | 2021-04-12 19:37 | PC.NURSE ---
PT AT 1755, CONFIRMED WITH [facility]. HOUSE SUP (MICHELLE) NOTIFIED, FAMILY NOTIFIED & DR. ALMEIDA NOTIFIED.
== END 2021-04-12 17:55 | disposition expired | DRG 177 ==
LOC: ER 11:40 → ER IP 16:36 → MEDSURG 18:04 → MS 2A 03-27 15:41
PROVIDERS: Internal Medicine; Admitting Provider Internal Medicine; Emergency Provider Emergency Medicine; PCP Family Medicine; Visit Provider Internal Medicine
DX: U07.1 COVID-19 (principal); J12.82 Pneumonia due to coronavirus disease 2019; E87.1 Hypo-osmolality and hyponatremia; R09.02 Hypoxemia; D72.829 Elevated white blood cell count, unspecified; I10 Essential (primary) hypertension; M54.5 Low back pain; M79.609 Pain in unspecified limb; Z66 Do not resuscitate; Z51.5 Encounter for palliative care; Z98.890 Other specified postprocedural states; Z82.49 Family history of ischemic heart disease and other diseases of the circulatory system; Z80.9 Family history of malignant neoplasm, unspecified; Z99.81 Dependence on supplemental oxygen
CPT/HCPCS: 36415; 36416; 36600; 51702; 71045; 71275; 80048; 80051; 80053; 81001; 82330; 82728; 82805; 82962; 83605; 83615; 83735; 83880; 84100; 84145; 84484; 85025; 85378; 85610; 85651; 85730; 86140; 86403; 87070; 87205; 87426; 87449; 87635; 87641; 93005; 94640; 94660; 94664; 96365; 96372; 96375; 96376; 97110; 97116; 97161; 97165; 99285; J0743; J1100; J1650; J1940; J2060; J2270; J2405; J3535; J7040; J7611; Q9967